=== PATIENT | male | born 1945 | race Hispanic/Latino ===

== ENCOUNTER 2018-08-07 09:31 | Inpatient (IN) | payer MEDICARE ==
--- NOTE | 2018-08-07 10:00 | ED PDOC ---
HPI: Altered Mental Status Time Seen by Provider: 08/07/18 09:42 Chief Complaint (Provider): "AMS" History Per: Patient, EMS Additional Complaint(s): 73 yo male, PMH (based on medications) of DM, HTN and High Cholesterol, presents to ED by EMS for evaluation of AMS. Pt last known to be "well," 3 days ago. According to EMS, Pt lives alone and airborne operations superintendent checked on Pt today and called 911 because Pt appeared to be "not himself." Pt at this time is alert and awake, Pt able to state his name clearly, no facial drooping noted. Pt unsure of day of week or year. Pt moving all extremities well. Pt reports he can not walk due to weakness. pt did mention that Thanksgiving just passed and then states, " don't feel good." Pt has Medications with him: Dr. Martin listed as prescriber. Past Medical History Reviewed: Historical Data, Nursing Documentation, Vital Signs, Unable To Obtain Vital Signs: Last Vital Signs Temp 98.2 F 08/07/18 09:35 Pulse 100 H 08/07/18 09:35 Resp 18 08/07/18 09:35 BP 119/86 08/07/18 09:35 Pulse Ox 90 L 08/07/18 09:35 - Medical History PMH: Diabetes, HTN, Hypercholesterolemia - Family History Family History: States: Unknown Family Hx - Living Arrangements Living Arrangements: Alone - Allergies Allergies/Adverse Reactions: Allergies Allergy/AdvReac Type Severity Reaction Status Date / Time No Known Allergies Allergy Verified 08/07/18 09:44 Review of Systems ROS Statement: Except As Marked, All Systems Reviewed And Found Negative Review Of Systems: ROS cannot be obtained secondary to pt's inabilty to answer questions. Neurological: Positive for: Altered Mental Status Physical Exam - Reviewed Nursing Documentation Reviewed: Yes Vital Signs Reviewed: Yes - Physical Exam Appears: Positive for: Well, Non-toxic, No Acute Distress Head Exam: Positive for: ATRAUMATIC, NORMAL INSPECTION, NORMOCEPHALIC Skin: Positive for: Normal Color, Warm, DRY Eye Exam: Positive for: EOMI, Normal appearance, PERRL ENT: Positive for: Normal ENT Inspection Neck: Positive for: Normal, Painless ROM Cardiovascular/Chest: Positive for: Regular Rate, Rhythm Respiratory: Positive for: Decreased Breath Sounds (b/l). Negative for: Accessory Muscle Use, Crackles, Rales, Rhonchi, Stridor, Wheezing Gastrointestinal/Abdominal: Positive for: Normal Exam, Soft Back: Positive for: Normal Inspection Extremity: Positive for: Normal ROM Neurologic/Psych: Positive for: Alert. Negative for: Gait, Facial Droop - Laboratory Results Result Diagrams: 08/07/18 10:09 08/07/18 10:09 - ECG O2 Sat by Pulse Oximetry: 90 Medical Decision Making Medical Decision Making: IV access established and diagnostics ordered Pt placed on correspondence dictator, POX: 90% on RA. Pt coughing and Lungs sound diminished b.l. Pt adminsitered duo-neb CBC resulted, WBC WNL, BUN COMP with elevated Potassium, glucose, AST/ALT CXR: Poor inspiratory effort, Pt rotated as well, (+) increased hilar markings, Right sided elevated hemidiaphragm, Left costophrenic angle blunted, consistent with possible pneumonia, as aaron erica PA-C Case discussed with ED MD, Dr. Myers, who agreed with treatment at this time of Rocephin and Zithromax. Head CT IMPRESSION: Suspect acute/subacute infarct right posterior parasagittal parietal lobe along the watershed zone of the right RADIO DISPATCHER/posterior MCA territory. Mild chronic periventricular white matter ischemic changes with a few scattered chronic appea ring bilateral basal nuclei lacunar type infarcts.. No acute intracranial hemorrhage. Moderate central volume loss. Case discussed with ED MD, Dr. Myers, who agreed with admission at this time. Call placed and case d/w Hospitalist, Dr. Hedrick, arrangements made for admission to tele. Case d/w david Quigley, as well. Aspirin and Plavix ordered at this time Disposition - Clinical Impression Clinical Impression: Altered mental status, Pneumonia, CVA (cerebral vascular accident) - Patient ED Disposition Is Patient to be Admitted: Yes - Disposition Disposition Time: 13:05 Condition: STABLE Instructions: Pneumonia in Adults, Altered Mental Status, Stroke - Pt Status Changed To: Hospital Disposition Of: Inpatient - Admit Certification Admit to Inpatient:: After my assessment, the patient will require hospitalization for at least two midnights. This is because of the severity of symptoms shown, intensity of services needed, and/or the medical risk in this patient being treated as an outpatient.
[2018-08-07 10:21] LABS: BASO # 0.1 K/uL (0.0-0.2); BASO % 1.5 % (0.0-2.0); HEMOGLOBIN 14.4 g/dL (12.0-18.0); LYMPH # 0.4 K/uL (1.0-4.3); LYMPH % 4.1 % (20.0-40.0); MEAN CELL VOLUME 85.8 fl (80.0-94.0); MEAN CORPUSCULAR HEMOGLOBIN 26.7 pg (27.0-31.0); MEAN CORPUSCULAR HGB CONC 31.1 g/dL (33.0-37.0); MEAN PLATELET VOLUME 10.4 fl (7.2-11.7); MONO # 1.2 K/uL (0.0-0.8); MONO % 12.6 % (0.0-10.0); NEUT # 7.9 K/uL (1.8-7.0); NEUT % 81.8 % (50.0-75.0); NRBC % 0.1 % (0.0-0.0); PLATELET COUNT 284 K/uL (130-400); RED CELL DISTRIBUTION WIDTH 16.6 % (11.5-14.5); WHITE BLOOD COUNT 9.7 K/uL (4.8-10.8)
[2018-08-07 10:29] LABS: ALB/GLOB RATIO 1.1 (1.0-2.1); ALT/SGPT 305 U/L (21-72); AST/SGOT 278 U/L (17-59); BLOOD UREA NITROGEN 44 mg/dl (9-20); CALCIUM 8.2 mg/dL (8.4-10.2); GFR NON-AFRICAN AMERICAN > 60
[2018-08-07 10:40] LABS: INR 1.4; PROTHROMBIN TIME 16.4 Seconds (9.8-13.1)
[2018-08-07 10:43] LABS: PARTIAL THROMBOPLASTIN TIME 32.2 Seconds (25.6-37.1)
[2018-08-07] MEDS ORDERED: Albuterol-Ipratrop 3 mg / 0.5 (3 ml) UD INH STA (10:47)
--- NOTE | 2018-08-07 11:06 | CT ---
Date of service: 08/07/2018 PROCEDURE: CT HEAD WITHOUT CONTRAST. HISTORY: AMS x 3 days COMPARISON: None available. TECHNIQUE: Axial computed tomography images were obtained through the head/brain without intravenous contrast. Radiation dose: Total exam DLP = 2145.3 mGy-cm. This CT exam was performed using one or more of the following dose reduction techniques: Automated exposure control, adjustment of the mA and/or kV according to patient size, and/or use of iterative reconstruction technique. FINDINGS: HEMORRHAGE: No acute parenchymal, subarachnoid or extra-axial hemorrhage. BRAIN: There is a there is an elliptical shaped area of low attenuation in the right parasagittal posterior parietal lobe abutting the border of the interhemispheric fissure in the right VEGETABLE PACKER/posterior MCA watershed zone a most likely representing an acute/subacute infarct. Clinical correlation recommended Moderate central volume loss evidenced by disproportionate enlargement of the ventricles compared sulci. VENTRICLES: No obstructive hydrocephalus. CALVARIUM: There are no acute calvarial fractures PARANASAL SINUSES: Unremarkable as visualized. No significant inflammatory changes. MASTOID AIR CELLS: Unremarkable as visualized. No inflammatory changes. OTHER FINDINGS: None. IMPRESSION: Suspect acute/subacute infarct right posterior parasagittal parietal lobe along the watershed zone of the right VEGETABLE PACKER/posterior MCA territory. Mild chronic periventricular white matter ischemic changes with a few scattered chronic appearing bilateral basal nuclei lacunar type infarcts.. No acute intracranial hemorrhage. Moderate central volume loss.
[2018-08-07] MEDS ORDERED: Azithromycin 500 MG in Sodium Chloride 0.9% 250 ML IVPB STA (12:23)
[2018-08-07 12:52] LABS: BASOPHIL 1 % (0-2); LYMPHOCYTE 4 % (20-50); MONOCYTE 10 % (0-10); NEUTROPHIL 85 % (42-75); TOTAL CELLS COUNTED 100
[2018-08-07 12:53] LABS: ANISOCYTOSIS SLIGHT; LARGE PLATELETS PRESENT; OVALOCYTES SLIGHT; PLATELET ESTIMATE NORMAL (NORMAL)
--- NOTE | 2018-08-07 13:41 | CP.PCM.HP ---
<Sultan Rufino - Last Filed: 08/07/18 15:18> History of Present Illness - History of Present Illness History of Present Illness: Information obtained from patient's medical record and patient. CC: Altered mental status HPI: 73 yo male with pmhx of DMII, HTN, hyperlipidemia and depression brought in by EMS for altered mental status. Patient lives alone and 911 was called by golf course superintendent for his altered mental status. Patient is able to state his name but somewhat drowsy. Patient is not oriented to place or time. Reports feeling weak. Patient denies any cough, fever, chills or abdominal pain. CT of the head shows suspected acute/subacute infarct right posterior parasagittal parietal lobe along the watershed zone of the right RELIGION DEPARTMENT CHAIR/posterior MCA territory. Patient is admitted for altered mental status and suspected CVA. PMD: Dr. Pearson Pmhx: DMII, HTN, Hyperlipidemia, Depression Medications: Levemir 20 Units AM and 30 units PM, Metformin 1000 mg po bid, glimepiride 1 mg po bid, losartan 100 mg daily, simvastatin 40 mg daily, aspirin 81 mg daily, zoloft 25 mg daily. Unable to obtain rest of the medical hx due to patient's mental status. Present on Admission - Present on Admission Any Indicators Present on Admission: No Review of Systems - Review of Systems Review of Systems: Unable to obtain complete ROS due to patient mental status Past Patient History - Infectious Disease Hx of Infectious Diseases: None - Past Social History Smoking Status: Unknown If Ever Smoked - CARDIAC Hx Hypercholesterolemia: Yes Hx Hypertension: Yes - PSYCHIATRIC Hx Substance Use: No Meds Allergies/Adverse Reactions: Allergies Allergy/AdvReac Type Severity Reaction Status Date / Time No Known Allergies Allergy Verified 08/07/18 09:44 Physical Exam - Constitutional Appears: Unkempt Additional comments: Confused and somewhat drowsy - Head Exam Head Exam: ATRAUMATIC - Eye Exam Eye Exam: EOMI, Normal appearance - ENT Exam ENT Exam: Mucous Membranes Moist - Neck Exam Neck exam: Positive for: Full Rom, Normal Inspection. Negative for: Lymphaden opathy - Respiratory Exam Respiratory Exam: absent: Accessory Muscle Use, Wheezes, Respiratory Distress Additional comments: Rales on right lung base. - Cardiovascular Exam Cardiovascular Exam: REGULAR RHYTHM, RRR, +S1, +S2 - GI/Abdominal Exam GI & Abdominal Exam: Normal Bowel Sounds, Soft. absent: Tenderness - Extremities Exam Extremities exam: Positive for: pedal edema, pedal pulses present. Negative for: calf tenderness - Neurological Exam Neurological exam: Alert Additional comments: Oriented to name only. Not oriented to place or time. somewhat drowsy and confused. - Skin Skin Exam: Dry, Warm Additional comments: B/L mild erythema of lower leg down from the knee with scaly skin. 1 cm x 1 cm open sore on right anterior lower leg. NO signs of infection. 1+ pedal edema. Results - Vital Signs Recent Vital Signs: Last Vital Signs Temp 98.2 F 08/07/18 09:35 Pulse 100 H 08/07/18 09:35 Resp 18 08/07/18 09:35 BP 119/86 08/07/18 09:35 Pulse Ox 90 L 08/07/18 13:05 - Labs Result Diagrams: 08/07/18 10:09 08/07/18 10:09 Labs: Laboratory Results - last 24 hr 08/07/18 08/07/18 08/07/18 09:50 10:09 10:09 WBC 9.7 RBC 5.40 Hgb 14.4 Hct 46.3 MCV 85.8 MCH 26.7 L MCHC 31.1 L RDW 16.6 H Plt Count 284 MPV 10.4 Neut % (Auto) 81.8 H Lymph % (Auto) 4.1 L Thurston % (Auto) 12.6 H Eos % (Auto) 0.0 Baso % (Auto) 1.5 Neut # (Auto) 7.9 H Lymph # (Auto) 0.4 L Thurston # (Auto) 1.2 H Eos # (Auto) 0.0 Baso # (Auto) 0.1 Neutrophils % (Manual) 85 H Lymphocytes % (Manual) 4 L Monocytes % (Manual) 10 Basophils % (Manual) 1 Platelet Estimate Normal Large Platelets Present Anisocytosis (manual) Slight Ovalocytes Slight PT INR APTT Sodium 141 Potassium 5.5 H Chloride 99 Carbon Dioxide 31 H Anion Gap 17 BUN 44 H Creatinine 1.0 Est GFR ( Amer) > 60 Est GFR (Non-Af Amer) > 60 POC Glucose (mg/dL) 224 H Random Glucose 247 H Calcium 8.2 L Total Bilirubin 0.8 AST 278 H ALT 305 H Alkaline Phosphatase 124 Troponin I 0.0290 Total Protein 7.7 Albumin 4.0 Globulin 3.7 Albumin/Globulin Ratio 1.1 Blood Type Antibody Screen BBK History Checked 08/07/18 08/07/18 10:09 10:27 WBC RBC Hgb Hct MCV MCH MCHC RDW Plt Count MPV Neut % (Auto) Lymph % (Auto) Thurston % (Auto) Eos % (Auto) Baso % (Auto) Neut # (Auto) Lymph # (Auto) Thurston # (Auto) Eos # (Auto) Baso # (Auto) Neutrophils % (Manual) Lymphocytes % (Manual) Monocytes % (Manual) Basophils % (Manual) Platelet Estimate Large Platelets Anisocytosis (manual) Ovalocytes PT 16.4 H INR 1.4 APTT 32.2 Sodium Potassium Chloride Carbon Dioxide Anion Gap BUN Creatinine Est GFR ( Amer) Est GFR (Non-Af Amer) POC Glucose (mg/dL) Random Glucose Calcium Total Bilirubin AST ALT Alkaline Phosphatase Troponin I Total Protein Albumin Globulin Albumin/Globulin Ratio Blood Type O POSITIVE Antibody Screen Negative BBK History Checked No verified bt Assessment & Plan - Assessment and Plan (Free Text) Assessment: Assessment and Plan: 73 yo male with pmhx of DMII, HTN, hyperlipidemia and depression brought in by EMS for altered mental status. CT of the head shows suspected acute/subacute infarct right posterior parasagittal parietal lobe along the watershed zone of the right RELIGION DEPARTMENT CHAIR/posterior MCA territory. Patient is admitted for altered mental status, suspected CVA and suspected pneumonia. Altered mental status likely secondary to CVA -CT of head: IMPRESSION: Suspect acute/subacute infarct right posterior parasagittal parietal lobe along the watershed zone of the right RELIGION DEPARTMENT CHAIR/posterior MCA territory. Mild chronic periventricular white matter ischemic changes with a few scattered chronic appearing bilateral basal nuclei lacunar type infarcts. No acute intracranial hemorrhage. Moderate central volume loss. -Neuro consult: Dr. Beauchamp -Start aspirin and plavix -f/u carotid US -swallow eval -PT/OT eval Hypoxemia likely secondary to aspiration pneumonia -CXR shows suspected infiltrate on right lung -Start azithromycin and zosyn -f/u on CT chest -Continue with NC oxygen to keep pulse ox above 92% Hyperkalemia: -Potassium 5.5 -EKG: NSR, no T wave changes. -start NS IV fluids @ 100 cc/hr -f/u CMP Transaminitis: -AST 278, ALT 305 -Hold statin -Will avoid hepatoxic drugs. Insulin dependement diabetes mellitus -resume home medications except metformin -Lantus 20 units AM and 30 units PM -Hold metformin 1000 mg po bid -Continue glimepiride 1 mg po bid -sliding scale insulin Hypertension: -stable -continue with home medication -Losartan 100mg po daily Depression: -c/w zoloft 25 mg po daily DVT prophylaxis: -hold lovenox due to CVA -SCD's -GI prophylaxis -Protonix 40 mg IVP <Geovanni Diaz D - Last Filed: 08/07/18 15:33> Results - Vital Signs Recent Vital Signs: Last Vital Signs Temp 98.2 F 08/07/18 09:35 Pulse 100 H 08/07/18 09:35 Resp 18 08/07/18 09:35 BP 119/86 08/07/18 09:35 Pulse Ox 90 L 08/07/18 13:05 - Labs Result Diagrams: 08/07/18 10:09 08/07/18 10:09 Labs: Laboratory Results - last 24 hr 08/07/18 08/07/18 08/07/18 09:50 10:09 10:09 WBC 9.7 RBC 5.40 Hgb 14.4 Hct 46.3 MCV 85.8 MCH 26.7 L MCHC 31.1 L RDW 16.6 H Plt Count 284 MPV 10.4 Neut % (Auto) 81.8 H Lymph % (Auto) 4.1 L Thurston % (Auto) 12.6 H Eos % (Auto) 0.0 Baso % (Auto) 1.5 Neut # (Auto) 7.9 H Lymph # (Auto) 0.4 L Thurston # (Auto) 1.2 H Eos # (Auto) 0.0 Baso # (Auto) 0.1 Neutrophils % (Manual) 85 H Lymphocytes % (Manual) 4 L Monocytes % (Manual) 10 Basophils % (Manual) 1 Platelet Estimate Normal Large Platelets Present Anisocytosis (manual) Slight Ovalocytes Slight PT INR APTT pO2 VBG pH VBG pCO2 VBG HCO3 VBG Total CO2 VBG O2 Sat (Calc) VBG Base Excess VBG Potassium Glucose Lactate FiO2 Blood Gas Comments Crit Value Called To Crit Value Called By Crit Value Read Back Blood Gas Notified Time Sodium 141 Potassium 5.5 H Chloride 99 Carbon Dioxide 31 H Anion Gap 17 BUN 44 H Creatinine 1.0 Est GFR ( Amer) > 60 Est GFR (Non-Af Amer) > 60 POC Glucose (mg/dL) 224 H Random Glucose 247 H Calcium 8.2 L Total Bilirubin 0.8 AST 278 H ALT 305 H Alkaline Phosphatase 124 Total Creatine Kinase Troponin I 0.0290 Total Protein 7.7 Albumin 4.0 Globulin 3.7 Albumin/Globulin Ratio 1.1 Venous Blood Potassium Blood Type Antibody Screen BBK History Checked 08/07/18 08/07/18 08/07/18 10:09 10:27 13:35 WBC RBC Hgb Hct MCV MCH MCHC RDW Plt Count MPV Neut % (Auto) Lymph % (Auto) Thurston % (Auto) Eos % (Auto) Baso % (Auto) Neut # (Auto) Lymph # (Auto) Thurston # (Auto) Eos # (Auto) Baso # (Auto) Neutrophils % (Manual) Lymphocytes % (Manual) Monocytes % (Manual) Basophils % (Manual) Platelet Estimate Large Platelets Anisocytosis (manual) Ovalocytes PT 16.4 H INR 1.4 APTT 32.2 pO2 29 L VBG pH 7.14 L* VBG pCO2 111 H* VBG HCO3 27.0 VBG Total CO2 41.2 H VBG O2 Sat (Calc) 50.4 VBG Base Excess 4.5 H VBG Potassium 5.0 Glucose 241 H Lactate 1.6 FiO2 21.0 Blood Gas Comments Vbg Crit Value Called To Max payne r..n Crit Value Called By Christa Crit Value Read Back Y Blood Gas Notified Time 1423 Sodium 139.0 Potassium Chloride 99.0 Carbon Dioxide Anion Gap BUN Creatinine Est GFR ( Amer) Est GFR (Non-Af Amer) POC Glucose (mg/dL) Random Glucose Calcium Total Bilirubin AST ALT Alkaline Phosphatase Total Creatine Kinase Troponin I Total Protein Albumin Globulin Albumin/Globulin Ratio Venous Blood Potassium 5.0 Blood Type O POSITIVE Antibody Screen Negative BBK History Checked No verified bt 08/07/18 13:52 WBC RBC Hgb Hct MCV MCH MCHC RDW Plt Count MPV Neut % (Auto) Lymph % (Auto) Thurston % (Auto) Eos % (Auto) Baso % (Auto) Neut # (Auto) Lymph # (Auto) Thurston # (Auto) Eos # (Auto) Baso # (Auto) Neutrophils % (Manual) Lymphocytes % (Manual) Monocytes % (Manual) Basophils % (Manual) Platelet Estimate Large Platelets Anisocytosis (manual) Ovalocytes PT INR APTT pO2 VBG pH VBG pCO2 VBG HCO3 VBG Total CO2 VBG O2 Sat (Calc) VBG Base Excess VBG Potassium Glucose Lactate FiO2 Blood Gas Comments Crit Value Called To Crit Value Called By Crit Value Read Back Blood Gas Notified Time Sodium Potassium Chloride Carbon Dioxide Anion Gap BUN Creatinine Est GFR ( Amer) Est GFR (Non-Af Amer) POC Glucose (mg/dL) Random Glucose Calcium Total Bilirubin AST ALT Alkaline Phosphatase Total Creatine Kinase 210 H Troponin I Total Protein Albumin Globulin Albumin/Globulin Ratio Venous Blood Potassium Blood Type Antibody Screen BBK History Checked Attending/Attestation - Attestation I have personally seen and examined this patient.: Yes I have fully participated in the care of the patient.: Yes I have reviewed all pertinent clinical information: Yes Notes (Text): 08/07/18 15:33 Patient seen and examined with resident. Case discussed and agreed with assessment and plan of management.
[2018-08-07] MEDS ORDERED: Sodium Chloride 0.9% 1,000 ML IV SCH (14:00)
[2018-08-07 14:23] LABS: VENOUS BLOOD GAS BASE EXCESS 4.5 mmol/L (0.0-2.0); VENOUS BLOOD GAS PCO2 111 mmHg (40-60); VENOUS BLOOD GAS PO2 29 mm/Hg (30-55); VENOUS BLOOD PH 7.14 (7.32-7.43)
[2018-08-07] MEDS ORDERED: cefTRIAXone (Rocephin) 1 gm Inj ONE (16:22)
[2018-08-07] MEDS ORDERED: Azithromycin 500 MG IV IVPB ONE (16:22)
[2018-08-07] MEDS ORDERED: Sterile Water 10 ML IV ONE (16:22)
--- NOTE | 2018-08-07 16:23 | RAD ---
Date of service: 08/07/2018 HISTORY: Code Stroke COMPARISON: Comparison chest 11/09/2017 FINDINGS: LUNGS: Poor inspiration with low lung volumes, common crowded bronchovascular markings and bibasilar atelectasis right greater than left.. PLEURA: No significant pleural effusion identified, no pneumothorax apparent. CARDIOVASCULAR: Suspect minimal aortic atherosclerotic calcification present. Marked cardiomegaly.. Prominent right suprahilar region of uncertain etiology though this could be due to patient positioning and poor inspiration however the possibility of a aortic aneurysm not excluded. OSSEOUS STRUCTURES: No significant abnormalities. VISUALIZED UPPER ABDOMEN: Normal. OTHER FINDINGS: None. IMPRESSION: Poor inspiration with low lung volumes, common crowded bronchovascular markings and bibasilar atelectasis right greater than left..
[2018-08-07] MEDS: Albuterol-Ipratrop 3 mg / 0.5 (3 ml) UD INH SCH (16:41)
[2018-08-07] MEDS: Insulin Lispro (humaLOG) 100 Units/ml Inj SC SCH ×2 (16:42→23:21)
[2018-08-07] MEDS: Piperacillin/Tazobact 3.375 GM in Sodium Chloride 0.9% 100 ML IVPB SCH ×2 (16:42→23:18)
[2018-08-07] MEDS ORDERED: Piperacillin/Tazobact 3.375 gm Inj IVPB ONE (17:04)
--- NOTE | 2018-08-07 17:28 | CT ---
Date of service: 08/07/2018 PROCEDURE: CT Chest without contrast HISTORY: Right-sided density. COMPARISON: Comparison made with prior chest radiograph obtained earlier same day TECHNIQUE: Contiguous axial images were obtained through the chest without intravenous contrast enhancement. Sagittal and coronal reconstructions were performed. Radiation dose: Total exam DLP = 667.79 mGy-cm. This CT exam was performed using one or more of the following dose reduction techniques: Automated exposure control, adjustment of the mA and/or kV according to patient size, and/or use of iterative reconstruction technique. FINDINGS: LUNGS: Redemonstrated is marked elevation of the right hemidiaphragm likely due to eventration. Mild bibasilar atelectasis right greater than left. There also appears to be minor linear bibasilar scarring changes as well.. Questionable tiny right effusion MEDIASTINUM: The ascending thoracic aorta is mildly dilated measuring 4.2 cm . Descending thoracic aorta measures approximately 3.3 cm. Minimal aortic atherosclerotic calcification. There are a few small nonspecific mediastinal lymph nodes. Evaluation for hilar adenopathy is somewhat limited due to the lack of circulating intravenous contrast material. Central trachea is midline and patent with no large central endoluminal lesions. There is a tiny hiatal hernia. PLEURA: As above. No pneumothorax. BONES: Multilevel degenerative spondylosis of the thoracic spine. There are no acute compression fractures no retropulsed fragments. No suspicious lytic or blastic lesions are identified. UPPER ABDOMEN: The visualized upper abdominal structures grossly unremarkable. OTHER FINDINGS: None. IMPRESSION: Cardiomegaly. Dilatation of the ascending thoracic aorta measuring nearly 4.2 cm.. Marked elevation of the right hemidiaphragm due to eventration. Tiny right-sided effusion. Trace right-sided effusion
--- NOTE | 2018-08-07 17:59 | CARD ---
APPROVED REPORT Date of service: 08/07/2018 EKG Measurement Heart [id number] <Conclusion> Normal sinus rhythm Inferior infarct, age undetermined Cannot rule out Anterior infarct, age undetermined Abnormal ECG
[2018-08-07] MEDS ORDERED: Dextrose 5%/0.45% NS 1,000 ML IV SCH (22:50)
[2018-08-08] MEDS: Piperacillin/Tazobact 3.375 GM in Sodium Chloride 0.9% 100 ML IVPB SCH ×4 (04:06→21:02)
[2018-08-08 06:38] LABS: BASO # 0.1 K/uL (0.0-0.2); BASO % 0.8 % (0.0-2.0); HEMOGLOBIN 14.7 g/dL (12.0-18.0); LYMPH # 0.4 K/uL (1.0-4.3); LYMPH % 3.2 % (20.0-40.0); MEAN CELL VOLUME 88.4 fl (80.0-94.0); MEAN CORPUSCULAR HEMOGLOBIN 26.3 pg (27.0-31.0); MEAN CORPUSCULAR HGB CONC 29.8 g/dL (33.0-37.0); MONO # 0.7 K/uL (0.0-0.8); NRBC % 0.1 % (0.0-0.0); PLATELET COUNT 333 K/uL (130-400); RBC 5.58 Mil/uL (4.40-5.90); WHITE BLOOD COUNT 11.1 K/uL (4.8-10.8)
[2018-08-08 07:22] LABS: LYMPHOCYTE 2 % (20-50); MONOCYTE 5 % (0-10); MYELOCYTE 2 % (0-0); NEUTROPHIL 91 % (42-75); PLATELET ESTIMATE NORMAL (NORMAL); TOTAL CELLS COUNTED 100
[2018-08-08 07:23] LABS: ANISOCYTOSIS SLIGHT; POLYCHROMIC SLIGHT
[2018-08-08] MEDS: Albuterol-Ipratrop 3 mg / 0.5 (3 ml) UD INH SCH ×4 (07:50→20:17)
[2018-08-08 07:52] LABS: BASO # 0.1 K/uL (0.0-0.2); BASO % 0.6 % (0.0-2.0); HEMOGLOBIN 13.8 g/dL (12.0-18.0); LYMPH # 0.6 K/uL (1.0-4.3); LYMPH % 5.4 % (20.0-40.0); MEAN CELL VOLUME 91.7 fl (80.0-94.0); MEAN CORPUSCULAR HEMOGLOBIN 26.5 pg (27.0-31.0); MEAN CORPUSCULAR HGB CONC 28.9 g/dL (33.0-37.0); MEAN PLATELET VOLUME 10.6 fl (7.2-11.7); MONO # 0.7 K/uL (0.0-0.8); MONO % 6.8 % (0.0-10.0); NEUT # 9.3 K/uL (1.8-7.0); NEUT % 87.2 % (50.0-75.0); NRBC % 0.9 % (0.0-0.0); RBC 5.2 Mil/uL (4.40-5.90); RED CELL DISTRIBUTION WIDTH 17.5 % (11.5-14.5); WHITE BLOOD COUNT 10.6 K/uL (4.8-10.8)
[2018-08-08] MEDS ORDERED: Chlorhexidine Gluconate 1 APPL/PKT TP ONE (07:55)
--- NOTE | 2018-08-08 07:56 | CP.CCUPN ---
CCU Subjective - Physician Review Events Since Last Encounter (Free Text): 73 yo male with history of DM, HTN, hyperlipidemia and depression was admitted with altered mental status and CVA, patient s/p cardiac arrest and resuscitations on the floor, patient currently on ventilator, no response to verbal stimuli, events reviewed CCU Objective - Physical Exam Head: Positive for: Atraumatic, Normocephalic Pupils: Positive for: Non-Reactive Conjunctiva: Positive for: Normal Mouth: Positive for: Moist Mucous Membranes Nose (External): Positive for: Atraumatic Neck: Positive for: Normal Range of Motion Respiratory/Chest: Positive for: Rhonchi Cardiovascular: Positive for: Regular Rate and Rhythm Abdomen: Positive for: Normal Bowel Sounds Upper Extremity: Positive for: Normal Inspection Lower Extremity: Positive for: Normal Inspection Neurological: Positive for: Other (on ventilator, no response to verbal stimuli) - Medications Active Medications: Active Medications Generic Name Dose Route Start Last Admin Trade Name Freq PRN Reason Stop Dose Admin Albuterol/Ipratropium 3 ml 08/07/18 16:00 08/07/18 16:41 Duoneb 3 Mg/0.5 Mg (3 Ml) Ud INH 3 ml RQID PEDRO Administration Piperacillin Sod/Tazobactam 100 mls @ 100 mls/hr 08/07/18 16:00 08/08/18 04:06 Sod 3.375 gm/ Sodium Chloride IVPB 100 mls/hr Q6 PEDRO Administration Protocol Azithromycin 500 mg/ Sodium 250 mls @ 250 mls/hr 08/08/18 09:00 Chloride IVPB DAILY PEDRO Protocol Dextrose/Sodium Chloride 1,000 mls @ 100 mls/hr 08/07/18 22:50 08/07/18 23:20 Dextrose 5%/0.45% Ns 1000 Ml IV 08/08/18 22:49 100 mls/hr .Q10H PEDRO Administration Insulin Human Lispro 0 units 08/07/18 16:30 08/07/18 23:21 Humalog SC Not Given ACHS PEDRO Protocol Pantoprazole Sodium 40 mg 08/07/18 14:15 08/07/18 15:41 Protonix Inj IVP 40 mg DAILY PEDRO Administration - Patient Studies Lab Studies: Lab Studies 08/08/18 08/08/18 08/08/18 Range/Units 05:32 05:32 05:18 WBC 11.1 H (4.8-10.8) K/uL RBC 5.58 (4.40-5.90) Mil/uL Hgb 14.7 (12.0-18.0) g/dL Hct 49.4 (35.0-51.0) % MCV 88.4 D (80.0-94.0) fl MCH 26.3 L (27.0-31.0) pg MCHC 29.8 L (33.0-37.0) g/dL RDW 17.0 H (11.5-14.5) % Plt Count 333 (130-400) K/uL MPV 11.0 (7.2-11.7) fl Neut % (Auto) 90.0 H (50.0-75.0) % Lymph % (Auto) 3.2 L (20.0-40.0) % [place] % (Auto) 6.0 (0.0-10.0) % Eos % (Auto) 0.0 (0.0-4.0) % Baso % (Auto) 0.8 (0.0-2.0) % Neut # (Auto) 10.0 H (1.8-7.0) K/uL Lymph # (Auto) 0.4 L (1.0-4.3) K/uL [place] # (Auto) 0.7 (0.0-0.8) K/uL Eos # (Auto) 0.0 (0.0-0.7) K/uL Baso # (Auto) 0.1 (0.0-0.2) K/uL Neutrophils % (Manual) 91 H (42-75) % Lymphocytes % (Manual) 2 L (20-50) % Monocytes % (Manual) 5 (0-10) % Basophils % (Manual) (0-2) % Myelocytes % 2 H (0-0) % Platelet Estimate Normal (NORMAL) Large Platelets Polychromasia Slight Anisocytosis (manual) Slight Ovalocytes PT (9.8-13.1) Seconds INR APTT (25.6-37.1) Seconds pO2 (30-55) mm/Hg VBG pH (7.32-7.43) VBG pCO2 (40-60) mmHg VBG HCO3 mmol/L VBG Total CO2 (22-28) mmol/L VBG O2 Sat (Calc) (40-65) % VBG Base Excess (0.0-2.0) mmol/L VBG Potassium (3.6-5.2) mmol/L Glucose (75-110) mg/dL Lactate (0.7-2.1) mmol/L FiO2 % Blood Gas Comments Crit Value Called To Crit Value Called By Crit Value Read Back Blood Gas Notified Time Sodium (132-148) mmol/l Potassium (3.6-5.0) MMOL/L Chloride (98-107) mmol/L Carbon Dioxide (22-30) mmol/L Anion Gap (10-20) BUN (9-20) mg/dl Creatinine (0.8-1.5) mg/dl Est GFR ( Amer) Est GFR (Non-Af Amer) POC Glucose (mg/dL) 243 H (65-110) mg/dL Random Glucose (75-110) mg/dL Calcium (8.4-10.2) mg/dL Total Bilirubin (0.2-1.3) mg/dl AST (17-59) U/L ALT (21-72) U/L Alkaline Phosphatase (38-126) U/L Total Creatine Kinase (55-170) U/L Troponin I (0.00-0.120) ng/mL Total Protein (6.3-8.2) G/DL Albumin (3.5-5.0) g/dL Globulin (2.2-3.9) gm/dL Albumin/Globulin Ratio (1.0-2.1) Triglycerides 112 (0-149) mg/DL Cholesterol 100 (0-199) mg/dL LDL Cholesterol Direct 65 (0-129) mg/dL HDL Cholesterol 30 (30-70) MG/DL TSH 3rd Generation 1.37 (0.46-4.68) mIU/ML Venous Blood Potassium (3.6-5.2) mmol/L Blood Type Blood Type Confirm Antibody Screen BBK History Checked 08/07/18 08/07/18 08/07/18 Range/Units 22:04 17:46 13:52 WBC (4.8-10.8) K/uL RBC (4.40-5.90) Mil/uL Hgb (12.0-18.0) g/dL Hct (35.0-51.0) % MCV (80.0-94.0) fl MCH (27.0-31.0) pg MCHC (33.0-37.0) g/dL RDW (11.5-14.5) % Plt Count (130-400) K/uL MPV (7.2-11.7) fl Neut % (Auto) (50.0-75.0) % Lymph % (Auto) (20.0-40.0) % [place] % (Auto) (0.0-10.0) % Eos % (Auto) (0.0-4.0) % Baso % (Auto) (0.0-2.0) % Neut # (Auto) (1.8-7.0) K/uL Lymph # (Auto) (1.0-4.3) K/uL [place] # (Auto) (0.0-0.8) K/uL Eos # (Auto) (0.0-0.7) K/uL Baso # (Auto) (0.0-0.2) K/uL Neutrophils % (Manual) (42-75) % Lymphocytes % (Manual) (20-50) % Monocytes % (Manual) (0-10) % Basophils % (Manual) (0-2) % Myelocytes % (0-0) % Platelet Estimate (NORMAL) Large Platelets Polychromasia Anisocytosis (manual) Ovalocytes PT (9.8-13.1) Seconds INR APTT (25.6-37.1) Seconds pO2 (30-55) mm/Hg VBG pH (7.32-7.43) VBG pCO2 (40-60) mmHg VBG HCO3 mmol/L VBG Total CO2 (22-28) mmol/L VBG O2 Sat (Calc) (40-65) % VBG Base Excess (0.0-2.0) mmol/L VBG Potassium (3.6-5.2) mmol/L Glucose (75-110) mg/dL Lactate (0.7-2.1) mmol/L FiO2 % Blood Gas Comments Crit Value Called To Crit Value Called By Crit Value Read Back Blood Gas Notified Time Sodium (132-148) mmol/l Potassium (3.6-5.0) MMOL/L Chloride (98-107) mmol/L Carbon Dioxide (22-30) mmol/L Anion Gap (10-20) BUN (9-20) mg/dl Creatinine (0.8-1.5) mg/dl Est GFR ( Amer) Est GFR (Non-Af Amer) POC Glucose (mg/dL) 168 H 176 H (65-110) mg/dL Random Glucose (75-110) mg/dL Calcium (8.4-10.2) mg/dL Total Bilirubin (0.2-1.3) mg/dl AST (17-59) U/L ALT (21-72) U/L Alkaline Phosphatase (38-126) U/L Total Creatine Kinase 210 H (55-170) U/L Troponin I (0.00-0.120) ng/mL Total Protein (6.3-8.2) G/DL Albumin (3.5-5.0) g/dL Globulin (2.2-3.9) gm/dL Albumin/Globulin Ratio (1.0-2.1) Triglycerides (0-149) mg/DL Cholesterol (0-199) mg/dL LDL Cholesterol Direct (0-129) mg/dL HDL Cholesterol (30-70) MG/DL TSH 3rd Generation (0.46-4.68) mIU/ML Venous Blood Potassium (3.6-5.2) mmol/L Blood Type Blood Type Confirm Antibody Screen BBK History Checked 08/07/18 08/07/18 08/07/18 Range/Units 13:35 10:27 10:09 WBC (4.8-10.8) K/uL RBC (4.40-5.90) Mil/uL Hgb (12.0-18.0) g/dL Hct (35.0-51.0) % MCV (80.0-94.0) fl MCH (27.0-31.0) pg MCHC (33.0-37.0) g/dL RDW (11.5-14.5) % Plt Count (130-400) K/uL MPV (7.2-11.7) fl Neut % (Auto) (50.0-75.0) % Lymph % (Auto) (20.0-40.0) % [place] % (Auto) (0.0-10.0) % Eos % (Auto) (0.0-4.0) % Baso % (Auto) (0.0-2.0) % Neut # (Auto) (1.8-7.0) K/uL Lymph # (Auto) (1.0-4.3) K/uL [place] # (Auto) (0.0-0.8) K/uL Eos # (Auto) (0.0-0.7) K/uL Baso # (Auto) (0.0-0.2) K/uL Neutrophils % (Manual) (42-75) % Lymphocytes % (Manual) (20-50) % Monocytes % (Manual) (0-10) % Basophils % (Manual) (0-2) % Myelocytes % (0-0) % Platelet Estimate (NORMAL) Large Platelets Polychromasia Anisocytosis (manual) Ovalocytes PT 16.4 H (9.8-13.1) Seconds INR 1.4 APTT 32.2 (25.6-37.1) Seconds pO2 29 L (30-55) mm/Hg VBG pH 7.14 L* (7.32-7.43) VBG pCO2 111 H* (40-60) mmHg VBG HCO3 27.0 mmol/L VBG Total CO2 41.2 H (22-28) mmol/L VBG O2 Sat (Calc) 50.4 (40-65) % VBG Base Excess 4.5 H (0.0-2.0) mmol/L VBG Potassium 5.0 (3.6-5.2) mmol/L Glucose 241 H (75-110) mg/dL Lactate 1.6 (0.7-2.1) mmol/L FiO2 21.0 % Blood Gas Comments Vbg Crit Value Called To Max payne r..n Crit Value Called By Christa Crit Value Read Back Y Blood Gas Notified Time 1423 Sodium 139.0 (132-148) mmol/l Potassium (3.6-5.0) MMOL/L Chloride 99.0 (98-107) mmol/L Carbon Dioxide (22-30) mmol/L Anion Gap (10-20) BUN (9-20) mg/dl Creatinine (0.8-1.5) mg/dl Est GFR ( Amer) Est GFR (Non-Af Amer) POC Glucose (mg/dL) (65-110) mg/dL Random Glucose (75-110) mg/dL Calcium (8.4-10.2) mg/dL Total Bilirubin (0.2-1.3) mg/dl AST (17-59) U/L ALT (21-72) U/L Alkaline Phosphatase (38-126) U/L Total Creatine Kinase (55-170) U/L Troponin I (0.00-0.120) ng/mL Total Protein (6.3-8.2) G/DL Albumin (3.5-5.0) g/dL Globulin (2.2-3.9) gm/dL Albumin/Globulin Ratio (1.0-2.1) Triglycerides (0-149) mg/DL Cholesterol (0-199) mg/dL LDL Cholesterol Direct (0-129) mg/dL HDL Cholesterol (30-70) MG/DL TSH 3rd Generation (0.46-4.68) mIU/ML Venous Blood Potassium 5.0 (3.6-5.2) mmol/L Blood Type Blood Type Confirm O POSITIVE Antibody Screen BBK History Checked 08/07/18 08/07/18 08/07/18 Range/Units 10:09 10:09 10:09 WBC 9.7 (4.8-10.8) K/uL RBC 5.40 (4.40-5.90) Mil/uL Hgb 14.4 (12.0-18.0) g/dL Hct 46.3 (35.0-51.0) % MCV 85.8 (80.0-94.0) fl MCH 26.7 L (27.0-31.0) pg MCHC 31.1 L (33.0-37.0) g/dL RDW 16.6 H (11.5-14.5) % Plt Count 284 (130-400) K/uL MPV 10.4 (7.2-11.7) fl Neut % (Auto) 81.8 H (50.0-75.0) % Lymph % (Auto) 4.1 L (20.0-40.0) % [place] % (Auto) 12.6 H (0.0-10.0) % Eos % (Auto) 0.0 (0.0-4.0) % Baso % (Auto) 1.5 (0.0-2.0) % Neut # (Auto) 7.9 H (1.8-7.0) K/uL Lymph # (Auto) 0.4 L (1.0-4.3) K/uL [place] # (Auto) 1.2 H (0.0-0.8) K/uL Eos # (Auto) 0.0 (0.0-0.7) K/uL Baso # (Auto) 0.1 (0.0-0.2) K/uL Neutrophils % (Manual) 85 H (42-75) % Lymphocytes % (Manual) 4 L (20-50) % Monocytes % (Manual) 10 (0-10) % Basophils % (Manual) 1 (0-2) % Myelocytes % (0-0) % Platelet Estimate Normal (NORMAL) Large Platelets Present Polychromasia Anisocytosis (manual) Slight Ovalocytes Slight PT (9.8-13.1) Seconds INR APTT (25.6-37.1) Seconds pO2 (30-55) mm/Hg VBG pH (7.32-7.43) VBG pCO2 (40-60) mmHg VBG HCO3 mmol/L VBG Total CO2 (22-28) mmol/L VBG O2 Sat (Calc) (40-65) % VBG Base Excess (0.0-2.0) mmol/L VBG Potassium (3.6-5.2) mmol/L Glucose (75-110) mg/dL Lactate (0.7-2.1) mmol/L FiO2 % Blood Gas Comments Crit Value Called To Crit Value Called By Crit Value Read Back Blood Gas Notified Time Sodium 141 (132-148) mmol/l Potassium 5.5 H (3.6-5.0) MMOL/L Chloride 99 (98-107) mmol/L Carbon Dioxide 31 H (22-30) mmol/L Anion Gap 17 (10-20) BUN 44 H (9-20) mg/dl Creatinine 1.0 (0.8-1.5) mg/dl Est GFR ( Amer) > 60 Est GFR (Non-Af Amer) > 60 POC Glucose (mg/dL) (65-110) mg/dL Random Glucose 247 H (75-110) mg/dL Calcium 8.2 L (8.4-10.2) mg/dL Total Bilirubin 0.8 (0.2-1.3) mg/dl AST 278 H (17-59) U/L ALT 305 H (21-72) U/L Alkaline Phosphatase 124 (38-126) U/L Total Creatine Kinase (55-170) U/L Troponin I 0.0290 (0.00-0.120) ng/mL Total Protein 7.7 (6.3-8.2) G/DL Albumin 4.0 (3.5-5.0) g/dL Globulin 3.7 (2.2-3.9) gm/dL Albumin/Globulin Ratio 1.1 (1.0-2.1) Triglycerides (0-149) mg/DL Cholesterol (0-199) mg/dL LDL Cholesterol Direct (0-129) mg/dL HDL Cholesterol (30-70) MG/DL TSH 3rd Generation (0.46-4.68) mIU/ML Venous Blood Potassium (3.6-5.2) mmol/L Blood Type O POSITIVE Blood Type Confirm Antibody Screen Negative BBK History Checked No verified bt 08/07/18 Range/Units 09:50 WBC (4.8-10.8) K/uL RBC (4.40-5.90) Mil/uL Hgb (12.0-18.0) g/dL Hct (35.0-51.0) % MCV (80.0-94.0) fl MCH (27.0-31.0) pg MCHC (33.0-37.0) g/dL RDW (11.5-14.5) % Plt Count (130-400) K/uL MPV (7.2-11.7) fl Neut % (Auto) (50.0-75.0) % Lymph % (Auto) (20.0-40.0) % [place] % (Auto) (0.0-10.0) % Eos % (Auto) (0.0-4.0) % Baso % (Auto) (0.0-2.0) % Neut # (Auto) (1.8-7.0) K/uL Lymph # (Auto) (1.0-4.3) K/uL [place] # (Auto) (0.0-0.8) K/uL Eos # (Auto) (0.0-0.7) K/uL Baso # (Auto) (0.0-0.2) K/uL Neutrophils % (Manual) (42-75) % Lymphocytes % (Manual) (20-50) % Monocytes % (Manual) (0-10) % Basophils % (Manual) (0-2) % Myelocytes % (0-0) % Platelet Estimate (NORMAL) Large Platelets Polychromasia Anisocytosis (manual) Ovalocytes PT (9.8-13.1) Seconds INR APTT (25.6-37.1) Seconds pO2 (30-55) mm/Hg VBG pH (7.32-7.43) VBG pCO2 (40-60) mmHg VBG HCO3 mmol/L VBG Total CO2 (22-28) mmol/L VBG O2 Sat (Calc) (40-65) % VBG Base Excess (0.0-2.0) mmol/L VBG Potassium (3.6-5.2) mmol/L Glucose (75-110) mg/dL Lactate (0.7-2.1) mmol/L FiO2 % Blood Gas Comments Crit Value Called To Crit Value Called By Crit Value Read Back Blood Gas Notified Time Sodium (132-148) mmol/l Potassium (3.6-5.0) MMOL/L Chloride (98-107) mmol/L Carbon Dioxide (22-30) mmol/L Anion Gap (10-20) BUN (9-20) mg/dl Creatinine (0.8-1.5) mg/dl Est GFR ( Amer) Est GFR (Non-Af Amer) POC Glucose (mg/dL) 224 H (65-110) mg/dL Random Glucose (75-110) mg/dL Calcium (8.4-10.2) mg/dL Total Bilirubin (0.2-1.3) mg/dl AST (17-59) U/L ALT (21-72) U/L Alkaline Phosphatase (38-126) U/L Total Creatine Kinase (55-170) U/L Troponin I (0.00-0.120) ng/mL Total Protein (6.3-8.2) G/DL Albumin (3.5-5.0) g/dL Globulin (2.2-3.9) gm/dL Albumin/Globulin Ratio (1.0-2.1) Triglycerides (0-149) mg/DL Cholesterol (0-199) mg/dL LDL Cholesterol Direct (0-129) mg/dL HDL Cholesterol (30-70) MG/DL TSH 3rd Generation (0.46-4.68) mIU/ML Venous Blood Potassium (3.6-5.2) mmol/L Blood Type Blood Type Confirm Antibody Screen BBK History Checked Laboratory Results - last 24 hr 08/07/18 08/07/18 08/07/18 09:50 10:09 10:09 WBC 9.7 RBC 5.40 Hgb 14.4 Hct 46.3 MCV 85.8 MCH 26.7 L MCHC 31.1 L RDW 16.6 H Plt Count 284 MPV 10.4 Neut % (Auto) 81.8 H Lymph % (Auto) 4.1 L [place] % (Auto) 12.6 H Eos % (Auto) 0.0 Baso % (Auto) 1.5 Neut # (Auto) 7.9 H Lymph # (Auto) 0.4 L [place] # (Auto) 1.2 H Eos # (Auto) 0.0 Baso # (Auto) 0.1 Neutrophils % (Manual) 85 H Lymphocytes % (Manual) 4 L Monocytes % (Manual) 10 Basophils % (Manual) 1 Myelocytes % Platelet Estimate Normal Large Platelets Present Polychromasia Anisocytosis (manual) Slight Ovalocytes Slight PT INR APTT pO2 VBG pH VBG pCO2 VBG HCO3 VBG Total CO2 VBG O2 Sat (Calc) VBG Base Excess VBG Potassium Glucose Lactate FiO2 Blood Gas Comments Crit Value Called To Crit Value Called By Crit Value Read Back Blood Gas Notified Time Sodium 141 Potassium 5.5 H Chloride 99 Carbon Dioxide 31 H Anion Gap 17 BUN 44 H Creatinine 1.0 Est GFR ( Amer) > 60 Est GFR (Non-Af Amer) > 60 POC Glucose (mg/dL) 224 H Random Glucose 247 H Calcium 8.2 L Total Bilirubin 0.8 AST 278 H ALT 305 H Alkaline Phosphatase 124 Total Creatine Kinase Troponin I 0.0290 Total Protein 7.7 Albumin 4.0 Globulin 3.7 Albumin/Globulin Ratio 1.1 Triglycerides Cholesterol LDL Cholesterol Direct HDL Cholesterol TSH 3rd Generation Venous Blood Potassium Blood Type Blood Type Confirm Antibody Screen BBK History Checked 08/07/18 08/07/18 08/07/18 10:09 10:09 10:27 WBC RBC Hgb Hct MCV MCH MCHC RDW Plt Count MPV Neut % (Auto) Lymph % (Auto) [place] % (Auto) Eos % (Auto) Baso % (Auto) Neut # (Auto) Lymph # (Auto) [place] # (Auto) Eos # (Auto) Baso # (Auto) Neutrophils % (Manual) Lymphocytes % (Manual) Monocytes % (Manual) Basophils % (Manual) Myelocytes % Platelet Estimate Large Platelets Polychromasia Anisocytosis (manual) Ovalocytes PT 16.4 H INR 1.4 APTT 32.2 pO2 VBG pH VBG pCO2 VBG HCO3 VBG Total CO2 VBG O2 Sat (Calc) VBG Base Excess VBG Potassium Glucose Lactate FiO2 Blood Gas Comments Crit Value Called To Crit Value Called By Crit Value Read Back Blood Gas Notified Time Sodium Potassium Chloride Carbon Dioxide Anion Gap BUN Creatinine Est GFR ( Amer) Est GFR (Non-Af Amer) POC Glucose (mg/dL) Random Glucose Calcium Total Bilirubin AST ALT Alkaline Phosphatase Total Creatine Kinase Troponin I Total Protein Albumin Globulin Albumin/Globulin Ratio Triglycerides Cholesterol LDL Cholesterol Direct HDL Cholesterol TSH 3rd Generation Venous Blood Potassium Blood Type O POSITIVE Blood Type Confirm O POSITIVE Antibody Screen Negative BBK History Checked No verified bt 08/07/18 08/07/18 08/07/18 13:35 13:52 17:46 WBC RBC Hgb Hct MCV MCH MCHC RDW Plt Count MPV Neut % (Auto) Lymph % (Auto) [place] % (Auto) Eos % (Auto) Baso % (Auto) Neut # (Auto) Lymph # (Auto) [place] # (Auto) Eos # (Auto) Baso # (Auto) Neutrophils % (Manual) Lymphocytes % (Manual) Monocytes % (Manual) Basophils % (Manual) Myelocytes % Platelet Estimate Large Platelets Polychromasia Anisocytosis (manual) Ovalocytes PT INR APTT pO2 29 L VBG pH 7.14 L* VBG pCO2 111 H* VBG HCO3 27.0 VBG Total CO2 41.2 H VBG O2 Sat (Calc) 50.4 VBG Base Excess 4.5 H VBG Potassium 5.0 Glucose 241 H Lactate 1.6 FiO2 21.0 Blood Gas Comments Vbg Crit Value Called To Max payne r..n Crit Value Called By Christa Crit Value Read Back Y Blood Gas Notified Time 1423 Sodium 139.0 Potassium Chloride 99.0 Carbon Dioxide Anion Gap BUN Creatinine Est GFR ( Amer) Est GFR (Non-Af Amer) POC Glucose (mg/dL) 176 H Random Glucose Calcium Total Bilirubin AST ALT Alkaline Phosphatase Total Creatine Kinase 210 H Troponin I Total Protein Albumin Globulin Albumin/Globulin Ratio Triglycerides Cholesterol LDL Cholesterol Direct HDL Cholesterol TSH 3rd Generation Venous Blood Potassium 5.0 Blood Type Blood Type Confirm Antibody Screen BBK History Checked 08/07/18 08/08/18 08/08/18 22:04 05:18 05:32 WBC 11.1 H RBC 5.58 Hgb 14.7 Hct 49.4 MCV 88.4 D MCH 26.3 L MCHC 29.8 L RDW 17.0 H Plt Count 333 MPV 11.0 Neut % (Auto) 90.0 H Lymph % (Auto) 3.2 L [place] % (Auto) 6.0 Eos % (Auto) 0.0 Baso % (Auto) 0.8 Neut # (Auto) 10.0 H Lymph # (Auto) 0.4 L [place] # (Auto) 0.7 Eos # (Auto) 0.0 Baso # (Auto) 0.1 Neutrophils % (Manual) 91 H Lymphocytes % (Manual) 2 L Monocytes % (Manual) 5 Basophils % (Manual) Myelocytes % 2 H Platelet Estimate Normal Large Platelets Polychromasia Slight Anisocytosis (manual) Slight Ovalocytes PT INR APTT pO2 VBG pH VBG pCO2 VBG HCO3 VBG Total CO2 VBG O2 Sat (Calc) VBG Base Excess VBG Potassium Glucose Lactate FiO2 Blood Gas Comments Crit Value Called To Crit Value Called By Crit Value Read Back Blood Gas Notified Time Sodium Potassium Chloride Carbon Dioxide Anion Gap BUN Creatinine Est GFR ( Amer) Est GFR (Non-Af Amer) POC Glucose (mg/dL) 168 H 243 H Random Glucose Calcium Total Bilirubin AST ALT Alkaline Phosphatase Total Creatine Kinase Troponin I Total Protein Albumin Globulin Albumin/Globulin Ratio Triglycerides Cholesterol LDL Cholesterol Direct HDL Cholesterol TSH 3rd Generation Venous Blood Potassium Blood Type Blood Type Confirm Antibody Screen BBK History Checked 08/08/18 05:32 WBC RBC Hgb Hct MCV MCH MCHC RDW Plt Count MPV Neut % (Auto) Lymph % (Auto) [place] % (Auto) Eos % (Auto) Baso % (Auto) Neut # (Auto) Lymph # (Auto) [place] # (Auto) Eos # (Auto) Baso # (Auto) Neutrophils % (Manual) Lymphocytes % (Manual) Monocytes % (Manual) Basophils % (Manual) Myelocytes % Platelet Estimate Large Platelets Polychromasia Anisocytosis (manual) Ovalocytes PT INR APTT pO2 VBG pH VBG pCO2 VBG HCO3 VBG Total CO2 VBG O2 Sat (Calc) VBG Base Excess VBG Potassium Glucose Lactate FiO2 Blood Gas Comments Crit Value Called To Crit Value Called By Crit Value Read Back Blood Gas Notified Time Sodium Potassium Chloride Carbon Dioxide Anion Gap BUN Creatinine Est GFR ( Amer) Est GFR (Non-Af Amer) POC Glucose (mg/dL) Random Glucose Calcium Total Bilirubin AST ALT Alkaline Phosphatase Total Creatine Kinase Troponin I Total Protein Albumin Globulin Albumin/Globulin Ratio Triglycerides 112 Cholesterol 100 LDL Cholesterol Direct 65 HDL Cholesterol 30 TSH 3rd Generation 1.37 Venous Blood Potassium Blood Type Blood Type Confirm Antibody Screen BBK History Checked EKG/Cardiology Studies: Cardiology / EKG Studies 08/07/18 09:50 ELECTROCARDIOGRAM Stat Comment: Mode Of Transportation: Reason For Exam: ams 08/08/18 EKG [ELECTROCARDIOGRAM] Stat Comment: 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
[2018-08-08 08:04] LABS: ALB/GLOB RATIO 1.2 (1.0-2.1); ALBUMIN 3.8 g/dL (3.5-5.0); BLOOD UREA NITROGEN 39 mg/dl (9-20); CALCIUM 9.9 mg/dL (8.4-10.2); GFR NON-AFRICAN AMERICAN 50
[2018-08-08 08:11] LABS: ALT/SGPT 1559 U/L (21-72)
[2018-08-08] MEDS ORDERED: Lactulose 10 gm/15 ml (Rectal Use) PR ONE (08:17)
[2018-08-08 08:26] LABS: AST/SGOT 1721 U/L (17-59)
[2018-08-08 08:33] LABS: ABG ALLEN TEST YES; ARTERIAL BLOOD GAS HEMOGLOBIN 14.1 g/dL (11.7-17.4); ARTERIAL BLOOD GAS O2 CAPACITY 19.5 mL/dL (16-24); ARTERIAL BLOOD GAS O2 CONTENT 19.4 ML/dL (15-23); ARTERIAL BLOOD GAS O2 SAT 99.7 % (95-98); ARTERIAL BLOOD GAS PCO2 73 mm/Hg (35-45); ARTERIAL BLOOD GAS PH 7.03 (7.35-7.45); ARTERIAL BLOOD GAS PO2 153 mm/Hg (80-100); ARTERIAL BLOOD GAS TCO2 21.5 mmol/L (22-28)
[2018-08-08 08:34] LABS: INR 1.5
[2018-08-08 08:37] LABS: PARTIAL THROMBOPLASTIN TIME 31.7 Seconds (25.6-37.1)
--- NOTE | 2018-08-08 09:45 | CP.PCM.PN ---
<Kris Rojas - Last Filed: 08/08/18 15:26> Subjective - Date & Time of Evaluation Date of Evaluation: 08/08/18 Time of Evaluation: 09:00 - Subjective Subjective: Pt seen and examined today. 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 In ICU Central line was placed, and he is closely monitored for exacerbation. Objective - Vital Signs/Intake and Output Vital Signs (last 24 hours): Temp Pulse Resp BP Pulse Ox 98.2 F 102 H 20 129/76 94 L 08/08/18 05:00 08/08/18 07:50 08/08/18 05:00 08/08/18 05:00 08/08/18 05:00 - Medications Medications: Current Medications Albuterol/Ipratropium (Duoneb 3 Mg/0.5 Mg (3 Ml) Ud) 3 ml INH RQID PEDRO Last Admin: 08/07/18 16:41 Dose: 3 ml Piperacillin Sod/Tazobactam (Sod 3.375 gm/ Sodium Chloride) 100 mls @ 100 mls/hr IVPB Q6 [facility]; Protocol Last Admin: 08/08/18 04:06 Dose: 100 mls/hr Azithromycin 500 mg/ Sodium (Chloride) 250 mls @ 250 mls/hr IVPB DAILY [facility]; Protocol Dextrose/Sodium Chloride (Dextrose 5%/0.45% Ns 1000 Ml) 1,000 mls @ 100 mls/hr IV .Q10H [facility] Stop: 08/08/18 22:49 Last Admin: 08/07/18 23:20 Dose: 100 mls/hr Insulin Human Lispro (Humalog) 0 units SC ACHS [facility]; Protocol Last Admin: 08/07/18 23:21 Dose: Not Given Lactulose (Enulose) 20 gm NG Q6 [facility] Pantoprazole Sodium (Protonix Inj) 40 mg IVP DAILY [facility] Last Admin: 08/07/18 15:41 Dose: 40 mg - Labs Labs: 08/08/18 07:45 08/08/18 07:34 PT 17.0 Seconds (9.8-13.1) H 08/08/18 07:50 INR 1.5 08/08/18 07:50 APTT 31.7 Seconds (25.6-37.1) 08/08/18 07:50 - Head Exam Head Exam: ATRAUMATIC, NORMAL INSPECTION, NORMOCEPHALIC - Eye Exam Eye Exam: Normal appearance Pupil Exam: Fixed Additional comments: Able to open Eyes when name mentioned, Pupil dilated to light but fixed - ENT Exam ENT Exam: Normal Exam Additional comments: Intubated, with OG tube attached - Respiratory Exam Respiratory Exam: Rhonchi Additional comments: On ventilator 12 rate, 450 TV, PEEP 5, sat 100% - Cardiovascular Exam Cardiovascular Exam: REGULAR RHYTHM, +S1, +S2 - GI/Abdominal Exam GI & Abdominal Exam: Soft, Normal Bowel Sounds - Neurological Exam Additional comments: Lathargic - Skin Skin Exam: Dry, Intact, Normal Color, Warm Assessment and Plan - Assessment and Plan (Free Text) Assessment: 73 yo male with PMH of DM2, HTN, Hyperlipidemia and depression brought in by EMS for altered mental status. CT possible Subacute infarct right posterior parasagittal parietal lobe along the watershed zone of the right GIS SOFTWARE ENGINEER/Posterior MCA territory. Patient is admitted for altered mental status, suspected CVA and suspected pneumonia. *Pt had code blue today, was successfully resuscitated, and sent to ICU for further management, Pt currently intubated and non-verbal. -CT of head: IMPRESSION: Suspect acute/subacute infarct right posterior parasagittal parietal lobe along the watershed zone of the right GIS SOFTWARE ENGINEER/posterior MCA territory. Mild chronic periventricular white matter ischemic changes with a few scattered chronic appearing bilateral basal nuclei lacunar type infarcts. No acute intracranial hemorrhage. Moderate central volume loss. CXR suspected infiltrate on right lung CT Chest: Dilated Ascending thoracic aorta, marked elevated R hemidiaphragm likely due to eventration with small RIGHt effusion. Altered mental status likely secondary to CVA Continue aspirin and plavix f/u carotid US No gag reflex noted Eyes are fixed, but react to light Possible Anoxic Encephalopathy F/u Neurology Dr. Beauchamp Hepatic Encephalopathy AST/ALT 1721/1559 Ammonia 360 Recieved lactulose 200 once Will start on lactulose 20 NG tube Q6 F/U GI consult Hypoxemia possible due to aspiration pneumonia Continue azithromycin and zosyn Day 1 On ventilator 12 rate, 450 TV, PEEP 5, sat 100% with Duoneb Elevated Troponin Troponin of [id number] EKG unchange Possibly due to Chest compression Consult Cardio, f/u recommendation Hyperkalemia: Potassium 5.5-> 5.9 EKG: NSR, no T wave changes. Continue half saline and d5 100ml f/u CMP Insulin dependement diabetes mellitus Hold all Home medication as Pt is intubated sliding scale insulin Hypoglycemic protocol Hypertension: Hold home medication monitor BP Depression: MEdication hold DVT prophylaxis: -hold lovenox due to CVA -SCD's -GI prophylaxis -Protonix 40 mg IVP Full Code <Geovanni Diaz D - Last Filed: 08/08/18 18:36> Objective - Vital Signs/Intake and Output Vital Signs (last 24 hours): Temp Pulse Resp BP Pulse Ox 98.7 F 107 H 20 132/66 93 L 08/08/18 16:00 08/08/18 18:00 08/08/18 18:00 08/08/18 18:00 08/08/18 18:00 Intake and Output: 08/08/18 08/08/18 06:59 18:59 Intake Total 4400 Output Total 500 Balance 3900 - Medications Medications: Current Medications Albuterol/Ipratropium (Duoneb 3 Mg/0.5 Mg (3 Ml) Ud) 3 ml INH RQID PEDRO Last Admin: 08/08/18 15:01 Dose: 3 ml Piperacillin Sod/Tazobactam (Sod 3.375 gm/ Sodium Chloride) 100 mls @ 100 mls/hr IVPB Q6 [facility]; Protocol Last Admin: 08/08/18 16:45 Dose: 100 mls/hr Azithromycin 500 mg/ Sodium (Chloride) 250 mls @ 250 mls/hr IVPB DAILY P[facility]RO; Pr otocol Last Admin: 08/08/18 10:36 Dose: 250 mls/hr Norepinephrine Bitartrate 4 mg (/ Dextrose) 254 mls @ 9.53 mls/hr IV .Q24H [facility]; Protocol Last Titration: 08/08/18 18:22 Dose: 0 mcg/min, 0 mls/hr Sodium Chloride (Sodium Chloride 0.9%) 1,000 mls @ 150 mls/hr IV .Q6H40M [facility]RO Stop: 08/09/18 15:54 Last Admin: 08/08/18 16:45 Dose: 150 mls/hr Insulin Human Lispro (Humalog) 0 units SC ACHS [facility]; Protocol Last Admin: 08/08/18 16:43 Dose: 3 units Lactulose (Enulose) 20 gm NG Q6 [facility] Last Admin: 08/08/18 16:44 Dose: Not Given Pantoprazole Sodium (Protonix Inj) 40 mg IVP DAILY [facility] Last Admin: 08/08/18 10:29 Dose: 40 mg - Labs Labs: 08/08/18 07:45 08/08/18 17:00 PT 17.0 Seconds (9.8-13.1) H 08/08/18 07:50 INR 1.5 08/08/18 07:50 APTT 31.7 Seconds (25.6-37.1) 08/08/18 07:50 Attending/Attestation - Attestation I have personally seen and examined this patient.: Yes I have fully participated in the care of the patient.: Yes I have reviewed all pertinent clinical information, including history, physical exam and plan: Yes Notes (Text): 08/08/18 18:35 Patient seen and examined with resident. Case discussed and agreed with assessment. Spoke with son and daughter in law who both wanted to do everything for patient.
--- NOTE | 2018-08-08 10:13 | RAD ---
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 NGT is present, the tip of which appears to lie over the mid abdomen well below EG junction. LUNGS: Bibasilar atelectasis and/or infiltrates with persistent right hemidiaphragm likely due to eventration. PLEURA: No significant pleural effusion identified, no pneumothorax apparent. CARDIOVASCULAR: Minimal aortic atherosclerotic calcification present.. Dilatation ascending thoracic aorta again noted. Cardiomegaly.. No pulmonary vascular congestion. OSSEOUS STRUCTURES: No significant abnormalities. VISUALIZED UPPER ABDOMEN: Normal. OTHER FINDINGS: None. IMPRESSION: Support lines and tubes as above. Bibasilar atelectasis and/or infiltrates with persistent right hemidiaphragm likely due to eventration. Cardiomegaly.
[2018-08-08 10:23] VITALS: BMI 29.4
[2018-08-08] MEDS ORDERED: Insulin Regular 100 units/ml IV STA (10:27)
[2018-08-08] MEDS ORDERED: Dextrose 50% SYRINGE Inj (50 ml) IVP ONE (10:30)
[2018-08-08] MEDS: Azithromycin 500 MG in Sodium Chloride 0.9% 250 ML IVPB SCH (10:36)
[2018-08-08] MEDS: Insulin Lispro (humaLOG) 100 Units/ml Inj SC SCH ×3 (11:00→22:46)
[2018-08-08 11:14] LABS: ABG ALLEN TEST YES; ARTERIAL BLOOD GAS HCO3 18.2 mmol/L (21-28); ARTERIAL BLOOD GAS HEMOGLOBIN 11.9 g/dL (11.7-17.4); ARTERIAL BLOOD GAS O2 CAPACITY 16.2 mL/dL (16-24); ARTERIAL BLOOD GAS O2 SAT 92.4 % (95-98); ARTERIAL BLOOD GAS PCO2 42 mm/Hg (35-45); ARTERIAL BLOOD GAS PH 7.25 (7.35-7.45); ARTERIAL BLOOD GAS PO2 57 mm/Hg (80-100); ARTERIAL BLOOD GAS TCO2 19.7 mmol/L (22-28)
--- NOTE | 2018-08-08 13:33 | PCM.PROC ---
Procedures Attestation:: I certify that I have explained the specified Operation(s) or Procedure(s), risks, benefits and reasonable alternatives to the Patient and/or other person responsible. The opportunity was given to ask questions and all questions answered - Central Line Placement Right Femoral Triple Lumen Catheter Aseptic technique was employed throughout the procedure: Hand Hygiene done prior to procedure, Full sterile barriers (mask, hair cover, sterile gown, sterile gloves), Full body sterile drape, Chloraprep Antiseptic: 30 second prep for IJ or SC sites, Chloraprep Antiseptic: 2 minute prep for Femoral CVP Time Out Performed: Yes Pt. Placed on Pulse Ox Monitor: Yes Central Line Prep: Chlorhexidine-Alcohol Combination Local Anesthesia Used: Lidocaine 1% Amount of Anesthesia Used (mls): 5 Ultrasound Used for Placement: Yes Central Line Lumen Inserted: triple Central Line Length: 20 cm Post Procedure: Sutured in Place, Good Blood Return, All Ports Aspirated, Flushed, Capped, Sterile Dressing Applied Secured by: Suture Post procedure dressing: Chlorhexidine disc (Biopatch) Post Procedure X-Ray: No Patient Tolerated Procedure: Well, No Complications Immediate Complications: None
[2018-08-08] MEDS ORDERED: Sodium Chloride 3% for Inhalation 4 ML VIAL.NEB IH PRN (13:42)
--- NOTE | 2018-08-08 15:27 | CP.PCM.CON ---
History of Present Illness - History of Present Illness History of Present Illness: Neurology Consultation Note: Mr. Giang is 73-year-old man, referred to me by Dr. 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 He was brought in to the ED and n on-contrast CT scan of the head showed a subacute ischemic stroke involving the right MCA/PROJECTION TECHNICIAN watershed zone. This morning, he was found to be pulseless and had cardiac arrest. He was coded on the floor and after 4 rounds of epi, ROSC was established and he was transferred to the ICU. His ammonia level was elevated initially, but is down now after lactulose. He opens eyes to painful stimulus, has some withdrawal to pain on the right and decerebrate posturing on the left. Review of Systems - Review of Systems Systems not reviewed;Unavailable: Intubated Past Patient History - Infectious Disease Hx of Infectious Diseases: None - Past Medical History & Family History Past Medical History?: Yes - Past Social History Smoking Status: Unknown If Ever Smoked - CARDIAC Hx Cardiac Disorders: Yes - ENDOCRINE/METABOLIC Hx Endocrine Disorders: Yes - PSYCHIATRIC Hx Substance Use: No - ANESTHESIA Hx Anesthesia: Yes Hx Anesthesia Reactions: No Hx Malignant Hyperthermia: No Has any member of the family had a problem w/ anesthesia?: No Meds Allergies/Adverse Reactions: Allergies Allergy/AdvReac Type Severity Reaction Status Date / Time No Known Allergies Allergy Verified 08/07/18 09:44 - Medications Medications: Current Medications Albuterol/Ipratropium (Duoneb 3 Mg/0.5 Mg (3 Ml) Ud) 3 ml INH RQID [facility]EDRO Last Admin: 08/08/18 15:01 Dose: 3 ml Piperacillin Sod/Tazobactam (Sod 3.375 gm/ Sodium Chloride) 100 mls @ 100 mls/hr IVPB Q6 [facility]; Protocol Last Admin: 08/08/18 10:37 Dose: 100 mls/hr Azithromycin 500 mg/ Sodium (Chloride) 250 mls @ 250 mls/hr IVPB DAILY [facility]; Protocol Last Admin: 08/08/18 10:36 Dose: 250 mls/hr Dextrose/Sodium Chloride (Dextrose 5%/0.45% Ns 1000 Ml) 1,000 mls @ 100 mls/hr IV .Q10H [facility] Stop: 08/08/18 22:49 Last Admin: 08/07/18 23:20 Dose: 100 mls/hr Norepinephrine Bitartrate 4 mg (/ Dextrose) 254 mls @ 9.53 mls/hr IV .Q24H [facility]; Protocol Last Titration: 08/08/18 14:42 Dose: 5 mcg/min, 19.05 mls/hr Insulin Human Lispro (Humalog) 0 units SC ACHS [facility]; Protocol Last Admin: 08/08/18 11:00 Dose: 10 units Lactulose (Enulose) 20 gm NG Q6 [facility] Last Admin: 08/08/18 10:24 Dose: 20 gm Pantoprazole Sodium (Protonix Inj) 40 mg IVP DAILY [facility] Last Admin: 08/08/18 10:29 Dose: 40 mg Physical Exam - Constitutional Appears: Chronically Ill - Head Exam Head Exam: ATRAUMATIC, NORMAL INSPECTION, NORMOCEPHALIC - Eye Exam Eye Exam: Normal appearance, PERRL, Scleral icterus - ENT Exam ENT Exam: Mucous Membranes Moist, Normal Exam - Neck Exam Neck exam: Positive for: Normal Inspection - Respiratory Exam Respiratory Exam: Respiratory Distress - Cardiovascular Exam Cardiovascular Exam: REGULAR RHYTHM, +S1, +S2 - GI/Abdominal Exam GI & Abdominal Exam: Normal Bowel Sounds, Soft. absent: Tenderness - Rectal Exam Rectal Exam: Deferred - Neurological Exam Additional comments: Off sedation, responds to painful stimulus with eye opening and decerebrate and triple flexion on the left with slight withdrawal on the right. Pupils are reactive, breathing over the ventilator, corneals are present. GCS= 5T Results - Vital Signs Recent Vital Signs: Last Vital Signs Temp 97.2 F L 08/08/18 08:00 Pulse 92 H 08/08/18 13:00 Resp 20 08/08/18 13:00 BP 77/49 L 08/08/18 13:00 Pulse Ox 94 L 08/08/18 13:00 - Labs Result Diagrams: 08/08/18 07:45 08/08/18 07:34 Labs: Laboratory Results - last 24 hr 08/07/18 08/07/18 08/07/18 10:09 17:46 22:04 WBC RBC Hgb Hct MCV MCH MCHC RDW Plt Count MPV Neut % (Auto) Lymph % (Auto) Bea[place]gard % (Auto) Eos % (Auto) Baso % (Auto) Neut # (Auto) Lymph # (Auto) [place] # (Auto) Eos # (Auto) Baso # (Auto) Neutrophils % (Manual) Lymphocytes % (Manual) Monocytes % (Manual) Myelocytes % Platelet Estimate Polychromasia Anisocytosis (manual) PT INR APTT pCO2 pO2 HCO3 ABG pH ABG Total CO2 ABG O2 Saturation ABG O2 Content ABG Base Excess ABG Hemoglobin ABG Carboxyhemoglobin POC ABG HHb (Measured) ABG Methemoglobin ABG O2 Capacity Jose Test A-a O2 Difference Hgb O2 Saturation Vent Mode Mechanical Rate FiO2 Tidal Volume PEEP Blood Gas Comments Crit Value Called To Crit Value Called By Crit Value Read Back Blood Gas Notified Time Sodium Potassium Chloride Carbon Dioxide Anion Gap BUN Creatinine Est GFR ( Amer) Est GFR (Non-Af Amer) POC Glucose (mg/dL) 176 H 168 H Random Glucose Lactic Acid Calcium Phosphorus Magnesium Total Bilirubin AST ALT Alkaline Phosphatase Ammonia Troponin I Total Protein Albumin Globulin Albumin/Globulin Ratio Triglycerides Cholesterol LDL Cholesterol Direct HDL Cholesterol TSH 3rd Generation Blood Type Confirm O POSITIVE 08/08/18 08/08/18 08/08/18 05:18 05:32 05:32 WBC 11.1 H RBC 5.58 Hgb 14.7 Hct 49.4 MCV 88.4 D MCH 26.3 L MCHC 29.8 L RDW 17.0 H Plt Count 333 MPV 11.0 Neut % (Auto) 90.0 H Lymph % (Auto) 3.2 L Bea[place]gard % (Auto) 6.0 Eos % (Auto) 0.0 Baso % (Auto) 0.8 Neut # (Auto) 10.0 H Lymph # (Auto) 0.4 L [place]gard # (Auto) 0.7 Eos # (Auto) 0.0 Baso # (Auto) 0.1 Neutrophils % (Manual) 91 H Lymphocytes % (Manual) 2 L Monocytes % (Manual) 5 Myelocytes % 2 H Platelet Estimate Normal Polychromasia Slight Anisocytosis (manual) Slight PT INR APTT pCO2 pO2 HCO3 ABG pH ABG Total CO2 ABG O2 Saturation ABG O2 Content ABG Base Excess ABG Hemoglobin ABG Carboxyhemoglobin POC ABG HHb (Measured) ABG Methemoglobin ABG O2 Capacity Jose Test A-a O2 Difference Hgb O2 Saturation Vent Mode Mechanical Rate FiO2 Tidal Volume PEEP Blood Gas Comments Crit Value Called To Crit Value Called By Crit Value Read Back Blood Gas Notified Time Sodium Potassium Chloride Carbon Dioxide Anion Gap BUN Creatinine Est GFR ( Amer) Est GFR (Non-Af Amer) POC Glucose (mg/dL) 243 H Random Glucose Lactic Acid Calcium Phosphorus Magnesium Total Bilirubin AST ALT Alkaline Phosphatase Ammonia Troponin I Total Protein Albumin Globulin Albumin/Globulin Ratio Triglycerides 112 Cholesterol 100 LDL Cholesterol Direct 65 HDL Cholesterol 30 TSH 3rd Generation 1.37 Blood Type Confirm 08/08/18 08/08/18 08/08/18 07:34 07:34 07:45 WBC 10.6 RBC 5.20 Hgb 13.8 Hct 47.7 MCV 91.7 D MCH 26.5 L MCHC 28.9 L RDW 17.5 H Plt Count 310 MPV 10.6 Neut % (Auto) 87.2 H Lymph % (Auto) 5.4 L Bea[place]gard % (Auto) 6.8 Eos % (Auto) 0.0 Baso % (Auto) 0.6 Neut # (Auto) 9.3 H Lymph # (Auto) 0.6 L Bea[place]gard # (Auto) 0.7 Eos # (Auto) 0.0 Baso # (Auto) 0.1 Neutrophils % (Manual) Lymphocytes % (Manual) Monocytes % (Manual) Myelocytes % Platelet Estimate Polychromasia Anisocytosis (manual) PT INR APTT pCO2 73 H* pO2 153 H HCO3 15.0 L ABG pH 7.03 L* ABG Total CO2 21.5 L ABG O2 Saturation 99.7 H ABG O2 Content 19.4 ABG Base Excess -12.7 L ABG Hemoglobin 14.1 ABG Carboxyhemoglobin 2.0 H POC ABG HHb (Measured) 0.3 ABG Methemoglobin 1.4 ABG O2 Capacity 19.5 Jose Test Yes A-a O2 Difference 469.0 Hgb O2 Saturation 96.3 Vent Mode Prvc/ac Mechanical Rate 12 FiO2 100.0 Tidal Volume 450 PEEP 5 Blood Gas Comments Prvc/ac12/vt450/100%/+5peep Crit Value Called To Dr jose eduardo scanlon m.d. Crit Value Called By Christa Crit Value Read Back Y Blood Gas Notified Time 833 Sodium 146 Potassium 5.9 H Chloride 100 Carbon Dioxide 25 Anion Gap 27 H BUN 39 H Creatinine 1.4 Est GFR ( Amer) > 60 Est GFR (Non-Af Amer) 50 POC Glucose (mg/dL) Random Glucose 195 H Lactic Acid Calcium 9.9 Phosphorus 11.3 H Magnesium 2.7 H Total Bilirubin 1.5 H AST 1721 H ALT 1559 H Alkaline Phosphatase 115 Ammonia Troponin I 0.0430 Total Protein 7.0 Albumin 3.8 Globulin 3.2 Albumin/Globulin Ratio 1.2 Triglycerides Cholesterol LDL Cholesterol Direct HDL Cholesterol TSH 3rd Generation Blood Type Confirm 08/08/18 08/08/18 08/08/18 07:45 07:50 08:06 WBC RBC Hgb Hct MCV MCH MCHC RDW Plt Count MPV Neut % (Auto) Lymph % (Auto) Bea[place]gard % (Auto) Eos % (Auto) Baso % (Auto) Neut # (Auto) Lymph # (Auto) [place] # (Auto) Eos # (Auto) Baso # (Auto) Neutrophils % (Manual) Lymphocytes % (Manual) Monocytes % (Manual) Myelocytes % Platelet Estimate Polychromasia Anisocytosis (manual) PT 17.0 H INR 1.5 APTT 31.7 pCO2 pO2 HCO3 ABG pH ABG Total CO2 ABG O2 Saturation ABG O2 Content ABG Base Excess ABG Hemoglobin ABG Carboxyhemoglobin POC ABG HHb (Measured) ABG Methemoglobin ABG O2 Capacity Jose Test A-a O2 Difference Hgb O2 Saturation Vent Mode Mechanical Rate FiO2 Tidal Volume PEEP Blood Gas Comments Crit Value Called To Crit Value Called By Crit Value Read Back Blood Gas Notified Time Sodium Potassium Chloride Carbon Dioxide Anion Gap BUN Creatinine Est GFR ( Amer) Est GFR (Non-Af Amer) POC Glucose (mg/dL) Random Glucose Lactic Acid 12.5 H* Calcium Phosphorus Magnesium Total Bilirubin AST ALT Alkaline Phosphatase Ammonia 360 H* Troponin I Total Protein Albumin Globulin Albumin/Globulin Ratio Triglycerides Cholesterol LDL Cholesterol Direct HDL Cholesterol TSH 3rd Generation Blood Type Confirm 08/08/18 08/08/18 08/08/18 10:56 13:12 13:12 WBC RBC Hgb Hct MCV MCH MCHC RDW Plt Count MPV Neut % (Auto) Lymph % (Auto) Bea[place]gard % (Auto) Eos % (Auto) Baso % (Auto) Neut # (Auto) Lymph # (Auto) [place] # (Auto) Eos # (Auto) Baso # (Auto) Neutrophils % (Manual) Lymphocytes % (Manual) Monocytes % (Manual) Myelocytes % Platelet Estimate Polychromasia Anisocytosis (manual) PT INR APTT pCO2 42 pO2 57 L HCO3 18.2 L ABG pH 7.25 L ABG Total CO2 19.7 L ABG O2 Saturation 92.4 L ABG O2 Content 15.0 ABG Base Excess -8.4 L ABG Hemoglobin 11.9 ABG Carboxyhemoglobin 1.8 H POC ABG HHb (Measured) 7.4 H ABG Methemoglobin 1.4 ABG O2 Capacity 16.2 Jose Test Yes A-a O2 Difference 604.0 Hgb O2 Saturation 89.4 L Vent Mode Prvc/ac Mechanical Rate 20 FiO2 100.0 Tidal Volume 450 PEEP 5 Blood Gas Comments Prvc/ac20/vt450/100%/+5peep Crit Value Called To Dr. jose eduardo scanlon m.d. Crit Value Called By Christa Hodge Value Read Back Y Blood Gas Notified Time 1114 Sodium Potassium Chloride Carbon Dioxide Anion Gap BUN Creatinine Est GFR ( Amer) Est GFR (Non-Af Amer) POC Glucose (mg/dL) Random Glucose Lactic Acid Calcium Phosphorus Magnesium Total Bilirubin AST ALT Alkaline Phosphatase Ammonia 23 D Troponin I 0.3760 H* Total Protein Albumin Globulin Albumin/Globulin Ratio Triglycerides Cholesterol LDL Cholesterol Direct HDL Cholesterol TSH 3rd Generation Blood Type Confirm Assessment & Plan (1) Anoxic brain injury Assessment and Plan: Will obtain a repeat non-contrast CT scan of the head when he is hemodynamically stable and consider obtaining EEG as well. For now, continue conservative management per primary team. Status: Acute (2) CVA (cerebral vascular accident) Assessment and Plan: Start aspirin 300 mg NM daily and maintain BP in normal range to avoid further watershed infarcts. When stable, the patient can have MRI of the brain for further evaluation as well as an echocardiogram. Thank you for this consultation. Status: Acute
--- NOTE | 2018-08-08 16:00 | CP.PCM.CON ---
History of Present Illness - History of Present Illness History of Present Illness: This 73-year-old man was brought to the emergency room in altered mental status and was found to have a subacute infarct in the right middle cerebral/posterior cerebral artery watershed area. The patient arrived in the emergency room yesterday and was hospitalized. He lives alone and his history was obtained by reviewing the chart. No family member was available for providing history. Review of his chart reveals that he was a hypertensive and diabetic. There is no history of prior cardiac illness. This morning the patient had a cardiac arrest and was revived after a prolonged resuscitative effort. On physical examination this was a middle aged man who was intubated on ventilatory support. His FiO2 was 100% and his pulse oximetry was 98%. laboratory monitor reveals sinus rhythm at 104 bpm. His blood pressure was 110/70 mmHg while on intravenous pressure support with norepinephrine at 5 mcg/m. The patient responds to painful stimuli with opening eyes but has no response to loud calling. His extremities were warm and his nailbeds were pink. There was no central or peripheral cyanosis. The patient has made approximately 300 mL of urine over last 8 hours. There was no pedal or sacral edema. Pedal pulses were feeble but distinctly present. There were no carotid bruits. The apex was not palpable. There was an apical systolic murmur suggestive of mitral regurgitation. The first and second heart sounds were distant but present. There were no rales. Abdomen was soft liver and spleen are not palpable. His electrocardiogram at admission shows Q waves in inferior leads suggestive of an old inferior wall myocardial infarction. R-wave progression in chest leads was poor suggestive off an old anterior wall infarction. His lab data showed hyperkalemia. The patient has received intravenous dextrose and insulin and a follow-up metabolic profile is awaited. Following cardiac arrest he has markedly elevated lactic acid as well as elevated troponin levels. He was also hyperkalemic and intravenous insulin and dextrose have been administered. Liver enzymes show a markedly elevated levels post cardiac resusci tation. 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 History of hypertension and diabetes. The patient appears hemodynamically stable at this juncture with minimal pressure support. 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 An echocardiogram is awaited for tomorrow. Past Patient History - Infectious Disease Hx of Infectious Diseases: None - Past Medical History & Family History Past Medical History?: Yes - Past Social History Smoking Status: Unknown If Ever Smoked - CARDIAC Hx Cardiac Disorders: Yes - ENDOCRINE/METABOLIC Hx Endocrine Disorders: Yes - PSYCHIATRIC Hx Substance Use: No - ANESTHESIA Hx Anesthesia: Yes Hx Anesthesia Reactions: No Hx Malignant Hyperthermia: No Has any member of the family had a problem w/ anesthesia?: No Meds Allergies/Adverse Reactions: Allergies Allergy/AdvReac Type Severity Reaction Status Date / Time No Known Allergies Allergy Verified 08/07/18 09:44 - Medications Medications: Current Medications Albuterol/Ipratropium (Duoneb 3 Mg/0.5 Mg (3 Ml) Ud) 3 ml INH RQID [facility] Last Admin: 08/08/18 15:01 Dose: 3 ml Piperacillin Sod/Tazobactam (Sod 3.375 gm/ Sodium Chloride) 100 mls @ 100 mls/hr IVPB Q6 [facility]; Protocol Last Admin: 08/08/18 10:37 Dose: 100 mls/hr Azithromycin 500 mg/ Sodium (Chloride) 250 mls @ 250 mls/hr IVPB DAILY [facility]; Protocol Last Admin: 08/08/18 10:36 Dose: 250 mls/hr Norepinephrine Bitartrate 4 mg (/ Dextrose) 254 mls @ 9.53 mls/hr IV .Q24H [facility]; Protocol Last Titration: 08/08/18 14:42 Dose: 5 mcg/min, 19.05 mls/hr Sodium Chloride (Sodium Chloride 0.9%) 1,000 mls @ 150 mls/hr IV .Q6H40M [facility] Stop: 08/09/18 15:54 Insulin Human Lispro (Humalog) 0 units SC ACHS [facility]; Protocol Last Admin: 08/08/18 11:00 Dose: 10 units Lactulose (Enulose) 20 gm NG Q6 [facility] Last Admin: 08/08/18 10:24 Dose: 20 gm Pantoprazole Sodium (Protonix Inj) 40 mg IVP DAILY [facility] Last Admin: 08/08/18 10:29 Dose: 40 mg Results - Vital Signs Recent Vital Signs: Last Vital Signs Temp 97.2 F L 08/08/18 08:00 Pulse 94 H 08/08/18 15:00 Resp 20 08/08/18 15:00 BP 107/68 08/08/18 15:00 Pulse Ox 90 L 08/08/18 15:00 - Labs Result Diagrams: 08/08/18 07:45 08/08/18 07:34 Labs: Laboratory Results - last 24 hr 08/07/18 08/07/18 08/07/18 10:09 17:46 22:04 WBC RBC Hgb Hct MCV MCH MCHC RDW Plt Count MPV Neut % (Auto) Lymph % (Auto) [place] % (Auto) Eos % (Auto) Baso % (Auto) Neut # (Auto) Lymph # (Auto) [place] # (Auto) Eos # (Auto) Baso # (Auto) Neutrophils % (Manual) Lymphocytes % (Manual) Monocytes % (Manual) Myelocytes % Platelet Estimate Polychromasia Anisocytosis (manual) PT INR APTT pCO2 pO2 HCO3 ABG pH ABG Total CO2 ABG O2 Saturation ABG O2 Content ABG Base Excess ABG Hemoglobin ABG Carboxyhemoglobin POC ABG HHb (Measured) ABG Methemoglobin ABG O2 Capacity Jose Test A-a O2 Difference Hgb O2 Saturation Vent Mode Mechanical Rate FiO2 Tidal Volume PEEP Blood Gas Comments Crit Value Called To Crit Value Called By Crit Value Read Back Blood Gas Notified Time Sodium Potassium Chloride Carbon Dioxide Anion Gap BUN Creatinine Est GFR ( Amer) Est GFR (Non-Af Amer) POC Glucose (mg/dL) 176 H 168 H Random Glucose Lactic Acid Calcium Phosphorus Magnesium Total Bilirubin AST ALT Alkaline Phosphatase Ammonia Troponin I Total Protein Albumin Globulin Albumin/Globulin Ratio Triglycerides Cholesterol LDL Cholesterol Direct HDL Cholesterol TSH 3rd Generation Blood Type Confirm O POSITIVE 08/08/18 08/08/18 08/08/18 05:18 05:32 05:32 WBC 11.1 H RBC 5.58 Hgb 14.7 Hct 49.4 MCV 88.4 D MCH 26.3 L MCHC 29.8 L RDW 17.0 H Plt Count 333 MPV 11.0 Neut % (Auto) 90.0 H Lymph % (Auto) 3.2 L [place] % (Auto) 6.0 Eos % (Auto) 0.0 Baso % (Auto) 0.8 Neut # (Auto) 10.0 H Lymph # (Auto) 0.4 L [place] # (Auto) 0.7 Eos # (Auto) 0.0 Baso # (Auto) 0.1 Neutrophils % (Manual) 91 H Lymphocytes % (Manual) 2 L Monocytes % (Manual) 5 Myelocytes % 2 H Platelet Estimate Normal Polychromasia Slight Anisocytosis (manual) Slight PT INR APTT pCO2 pO2 HCO3 ABG pH ABG Total CO2 ABG O2 Saturation ABG O2 Content ABG Base Excess ABG Hemoglobin ABG Carboxyhemoglobin POC ABG HHb (Measured) ABG Methemoglobin ABG O2 Capacity Jose Test A-a O2 Difference Hgb O2 Saturation Vent Mode Mechanical Rate FiO2 Tidal Volume PEEP Blood Gas Comments Crit Value Called To Crit Value Called By Crit Value Read Back Blood Gas Notified Time Sodium Potassium Chloride Carbon Dioxide Anion Gap BUN Creatinine Est GFR ( Amer) Est GFR (Non-Af Amer) POC Glucose (mg/dL) 243 H Random Glucose Lactic Acid Calcium Phosphorus Magnesium Total Bilirubin AST ALT Alkaline Phosphatase Ammonia Troponin I Total Protein Albumin Globulin Albumin/Globulin Ratio Triglycerides 112 Cholesterol 100 LDL Cholesterol Direct 65 HDL Cholesterol 30 TSH 3rd Generation 1.37 Blood Type Confirm 08/08/18 08/08/18 08/08/18 07:34 07:34 07:45 WBC 10.6 RBC 5.20 Hgb 13.8 Hct 47.7 MCV 91.7 D MCH 26.5 L MCHC 28.9 L RDW 17.5 H Plt Count 310 MPV 10.6 Neut % (Auto) 87.2 H Lymph % (Auto) 5.4 L [place] % (Auto) 6.8 Eos % (Auto) 0.0 Baso % (Auto) 0.6 Neut # (Auto) 9.3 H Lymph # (Auto) 0.6 L [place] # (Auto) 0.7 Eos # (Auto) 0.0 Baso # (Auto) 0.1 Neutrophils % (Manual) Lymphocytes % (Manual) Monocytes % (Manual) Myelocytes % Platelet Estimate Polychromasia Anisocytosis (manual) PT INR APTT pCO2 73 H* pO2 153 H HCO3 15.0 L ABG pH 7.03 L* ABG Total CO2 21.5 L ABG O2 Saturation 99.7 H ABG O2 Content 19.4 ABG Base Excess -12.7 L ABG Hemoglobin 14.1 ABG Carboxyhemoglobin 2.0 H POC ABG HHb (Measured) 0.3 ABG Methemoglobin 1.4 ABG O2 Capacity 19.5 Jose Test Yes A-a O2 Difference 469.0 Hgb O2 Saturation 96.3 Vent Mode Prvc/ac Mechanical Rate 12 FiO2 100.0 Tidal Volume 450 PEEP 5 Blood Gas Comments Prvc/ac12/vt450/100%/+5peep Crit Value Called To Dr jose eduardo scanlon m.d. Crit Value Called By Christa Crit Value Read Back Y Blood Gas Notified Time 833 Sodium 146 Potassium 5.9 H Chloride 100 Carbon Dioxide 25 Anion Gap 27 H BUN 39 H Creatinine 1.4 Est GFR ( Amer) > 60 Est GFR (Non-Af Amer) 50 POC Glucose (mg/dL) Random Glucose 195 H Lactic Acid Calcium 9.9 Phosphorus 11.3 H Magnesium 2.7 H Total Bilirubin 1.5 H AST 1721 H ALT 1559 H Alkaline Phosphatase 115 Ammonia Troponin I 0.0430 Total Protein 7.0 Albumin 3.8 Globulin 3.2 Albumin/Globulin Ratio 1.2 Triglycerides Cholesterol LDL Cholesterol Direct HDL Cholesterol TSH 3rd Generation Blood Type Confirm 08/08/18 08/08/18 08/08/18 07:45 07:50 08:06 WBC RBC Hgb Hct MCV MCH MCHC RDW Plt Count MPV Neut % (Auto) Lymph % (Auto) [place] % (Auto) Eos % (Auto) Baso % (Auto) Neut # (Auto) Lymph # (Auto) [place] # (Auto) Eos # (Auto) Baso # (Auto) Neutrophils % (Manual) Lymphocytes % (Manual) Monocytes % (Manual) Myelocytes % Platelet Estimate Polychromasia Anisocytosis (manual) PT 17.0 H INR 1.5 APTT 31.7 pCO2 pO2 HCO3 ABG pH ABG Total CO2 ABG O2 Saturation ABG O2 Content ABG Base Excess ABG Hemoglobin ABG Carboxyhemoglobin POC ABG HHb (Measured) ABG Methemoglobin ABG O2 Capacity Jose Test A-a O2 Difference Hgb O2 Saturation Vent Mode Mechanical Rate FiO2 Tidal Volume PEEP Blood Gas Comments Crit Value Called To Crit Value Called By Crit Value Read Back Blood Gas Notified Time Sodium Potassium Chloride Carbon Dioxide Anion Gap BUN Creatinine Est GFR ( Amer) Est GFR (Non-Af Amer) POC Glucose (mg/dL) Random Glucose Lactic Acid 12.5 H* Calcium Phosphorus Magnesium Total Bilirubin AST ALT Alkaline Phosphatase Ammonia 360 H* Troponin I Total Protein Albumin Globulin Albumin/Globulin Ratio Triglycerides Cholesterol LDL Cholesterol Direct HDL Cholesterol TSH 3rd Generation Blood Type Confirm 08/08/18 08/08/18 08/08/18 10:56 13:12 13:12 WBC RBC Hgb Hct MCV MCH MCHC RDW Plt Count MPV Neut % (Auto) Lymph % (Auto) [place] % (Auto) Eos % (Auto) Baso % (Auto) Neut # (Auto) Lymph # (Auto) [place] # (Auto) Eos # (Auto) Baso # (Auto) Neutrophils % (Manual) Lymphocytes % (Manual) Monocytes % (Manual) Myelocytes % Platelet Estimate Polychromasia Anisocytosis (manual) PT INR APTT pCO2 42 pO2 57 L HCO3 18.2 L ABG pH 7.25 L ABG Total CO2 19.7 L ABG O2 Saturation 92.4 L ABG O2 Content 15.0 ABG Base Excess -8.4 L ABG Hemoglobin 11.9 ABG Carboxyhemoglobin 1.8 H POC ABG HHb (Measured) 7.4 H ABG Methemoglobin 1.4 ABG O2 Capacity 16.2 Jose Test Yes A-a O2 Difference 604.0 Hgb O2 Saturation 89.4 L Vent Mode Prvc/ac Mechanical Rate 20 FiO2 100.0 Tidal Volume 450 PEEP 5 Blood Gas Comments Prvc/ac20/vt450/100%/+5peep Crit Value Called To Dr. jose eduardo scanlon m.d. Crit Value Called By Christa Hodge Value Read Back Y Blood Gas Notified Time 1114 Sodium Potassium Chloride Carbon Dioxide Anion Gap BUN Creatinine Est GFR ( Amer) Est GFR (Non-Af Amer) POC Glucose (mg/dL) Random Glucose Lactic Acid Calcium Phosphorus Magnesium Total Bilirubin AST ALT Alkaline Phosphatase Ammonia 23 D Troponin I 0.3760 H* Total Protein Albumin Globulin Albumin/Globulin Ratio Triglycerides Cholesterol LDL Cholesterol Direct HDL Cholesterol TSH 3rd Generation Blood Type Confirm
[2018-08-08] MEDS: Sodium Chloride 0.9% 1,000 ML IV SCH ×3 (16:45→22:46)
[2018-08-08 17:33] LABS: CALCIUM 7.8 mg/dL (8.4-10.2)
--- NOTE | 2018-08-08 23:48 | CP.PCM.CON ---
History of Present Illness - History of Present Illness History of Present Illness: 73 yo male admitted with altered mental status and found to hasve a CVA. He then had to be resuscitated while in telemetry and found to have an FL. His past medical issues include DM and hypertension. GI service was called due to jorge mar LFTs. Review of Systems - Review of Systems Systems not reviewed;Unavailable: Altered Mental Status Past Patient History - Infectious Disease Hx of Infectious Diseases: None - Past Medical History & Family History Past Medical History?: Yes - Past Social History Smoking Status: Unknown If Ever Smoked - CARDIAC Hx Cardiac Disorders: Yes - ENDOCRINE/METABOLIC Hx Endocrine Disorders: Yes - PSYCHIATRIC Hx Substance Use: No - ANESTHESIA Hx Anesthesia: Yes Hx Anesthesia Reactions: No Hx Malignant Hyperthermia: No Has any member of the family had a problem w/ anesthesia?: No Meds Allergies/Adverse Reactions: Allergies Allergy/AdvReac Type Severity Reaction Status Date / Time No Known Allergies Allergy Verified 08/07/18 09:44 - Medications Medications: Current Medications Acetaminophen (Tylenol 650mg/20.3ml Solution Ud) 650 mg PO Q4 PRN PRN Reason: Temperature Albuterol/Ipratropium (Duoneb 3 Mg/0.5 Mg (3 Ml) Ud) 3 ml INH RQID [facility]RO Last Admin: 08/08/18 20:17 Dose: 3 ml Piperacillin Sod/Tazobactam (Sod 3.375 gm/ Sodium Chloride) 100 mls @ 100 mls/hr IVPB Q6 [facility]; Protocol Last Admin: 08/08/18 21:02 Dose: 100 mls/hr Azithromycin 500 mg/ Sodium (Chloride) 250 mls @ 250 mls/hr IVPB DAILY [facility]; Protocol Last Admin: 08/08/18 10:36 Dose: 250 mls/hr Norepinephrine Bitartrate 4 mg (/ Dextrose) 254 mls @ 9.53 mls/hr IV .Q24H [facility]; Protocol Last Titration: 08/08/18 18:22 Dose: 0 mcg/min, 0 mls/hr Sodium Chloride (Sodium Chloride 0.9%) 1,000 mls @ 150 mls/hr IV .Q6H40M [facility] Stop: 08/09/18 15:54 Last Admin: 08/08/18 22:46 Dose: Not Given Insulin Human Lispro (Humalog) 0 units SC ACHS [facility]; Protocol Last Admin: 08/08/18 22:46 Dose: Not Given Lactulose (Enulose) 20 gm NG Q6 [facility] Last Admin: 08/08/18 21:05 Dose: Not Given Pantoprazole Sodium (Protonix Inj) 40 mg IVP DAILY [facility] Last Admin: 08/08/18 10:29 Dose: 40 mg Physical Exam - Constitutional Appears: No Acute Distress - Head Exam Head Exam: NORMAL INSPECTION - Eye Exam Eye Exam: Normal appearance - ENT Exam ENT Exam: Mucous Membranes Moist - Neck Exam Neck exam: Positive for: Normal Inspection - Respiratory Exam Respiratory Exam: Clear to Auscultation Bilateral - Cardiovascular Exam Cardiovascular Exam: REGULAR RHYTHM, +S1, +S2 - GI/Abdominal Exam GI & Abdominal Exam: Normal Bowel Sounds, Soft. absent: Tenderness - Extremities Exam Extremities exam: Positive for: normal inspection Results - Vital Signs Recent Vital Signs: Last Vital Signs Temp 98.7 F 08/08/18 16:00 Pulse 107 H 08/08/18 18:00 Resp 20 08/08/18 18:00 BP 132/66 08/08/18 18:00 Pulse Ox 93 L 08/08/18 18:00 - Labs Result Diagrams: 08/08/18 07:45 08/08/18 17:00 Labs: Laboratory Results - last 24 hr 08/07/18 08/08/18 08/08/18 10:09 05:18 05:32 WBC 11.1 H RBC 5.58 Hgb 14.7 Hct 49.4 MCV 88.4 D MCH 26.3 L MCHC 29.8 L RDW 17.0 H Plt Count 333 MPV 11.0 Neut % (Auto) 90.0 H Lymph % (Auto) 3.2 L [place] % (Auto) 6.0 Eos % (Auto) 0.0 Baso % (Auto) 0.8 Neut # (Auto) 10.0 H Lymph # (Auto) 0.4 L [place] # (Auto) 0.7 Eos # (Auto) 0.0 Baso # (Auto) 0.1 Neutrophils % (Manual) 91 H Lymphocytes % (Manual) 2 L Monocytes % (Manual) 5 Myelocytes % 2 H Platelet Estimate Normal Polychromasia Slight Anisocytosis (manual) Slight PT INR APTT pCO2 pO2 HCO3 ABG pH ABG Total CO2 ABG O2 Saturation ABG O2 Content ABG Base Excess ABG Hemoglobin ABG Carboxyhemoglobin POC ABG HHb (Measured) ABG Methemoglobin ABG O2 Capacity Jose Test A-a O2 Difference Hgb O2 Saturation Vent Mode Mechanical Rate FiO2 Tidal Volume PEEP Blood Gas Comments Crit Value Called To Crit Value Called By Crit Value Read Back Blood Gas Notified Time Sodium Potassium Chloride Carbon Dioxide Anion Gap BUN Creatinine Est GFR ( Amer) Est GFR (Non-Af Amer) POC Glucose (mg/dL) 243 H Random Glucose Lactic Acid Calcium Phosphorus Magnesium Total Bilirubin AST ALT Alkaline Phosphatase Ammonia Troponin I Total Protein Albumin Globulin Albumin/Globulin Ratio Triglycerides Cholesterol LDL Cholesterol Direct HDL Cholesterol Procalcitonin TSH 3rd Generation Blood Type Confirm O POSITIVE 08/08/18 08/08/18 08/08/18 05:32 07:34 07:34 WBC RBC Hgb Hct MCV MCH MCHC RDW Plt Count MPV Neut % (Auto) Lymph % (Auto) [place] % (Auto) Eos % (Auto) Baso % (Auto) Neut # (Auto) Lymph # (Auto) [place] # (Auto) Eos # (Auto) Baso # (Auto) Neutrophils % (Manual) Lymphocytes % (Manual) Monocytes % (Manual) Myelocytes % Platelet Estimate Polychromasia Anisocytosis (manual) PT INR APTT pCO2 73 H* pO2 153 H HCO3 15.0 L ABG pH 7.03 L* ABG Total CO2 21.5 L ABG O2 Saturation 99.7 H ABG O2 Content 19.4 ABG Base Excess -12.7 L ABG Hemoglobin 14.1 ABG Carboxyhemoglobin 2.0 H POC ABG HHb (Measured) 0.3 ABG Methemoglobin 1.4 ABG O2 Capacity 19.5 Jose Test Yes A-a O2 Difference 469.0 Hgb O2 Saturation 96.3 Vent Mode Prvc/ac Mechanical Rate 12 FiO2 100.0 Tidal Volume 450 PEEP 5 Blood Gas Comments Prvc/ac12/vt450/100%/+5peep Crit Value Called To Dr jose eduardo scanlon m.d. Crit Value Called By Christa Crit Value Read Back Y Blood Gas Notified Time 833 Sodium 146 Potassium 5.9 H Chloride 100 Carbon Dioxide 25 Anion Gap 27 H BUN 39 H Creatinine 1.4 Est GFR ( Amer) > 60 Est GFR (Non-Af Amer) 50 POC Glucose (mg/dL) Random Glucose 195 H Lactic Acid Calcium 9.9 Phosphorus 11.3 H Magnesium 2.7 H Total Bilirubin 1.5 H AST 1721 H ALT 1559 H Alkaline Phosphatase 115 Ammonia Troponin I 0.0430 Total Protein 7.0 Albumin 3.8 Globulin 3.2 Albumin/Globulin Ratio 1.2 Triglycerides 112 Cholesterol 100 LDL Cholesterol Direct 65 HDL Cholesterol 30 Procalcitonin TSH 3rd Generation 1.37 Blood Type Confirm 08/08/18 08/08/18 08/08/18 07:45 07:45 07:48 WBC 10.6 RBC 5.20 Hgb 13.8 Hct 47.7 MCV 91.7 D MCH 26.5 L MCHC 28.9 L RDW 17.5 H Plt Count 310 MPV 10.6 Neut % (Auto) 87.2 H Lymph % (Auto) 5.4 L [place] % (Auto) 6.8 Eos % (Auto) 0.0 Baso % (Auto) 0.6 Neut # (Auto) 9.3 H Lymph # (Auto) 0.6 L [place] # (Auto) 0.7 Eos # (Auto) 0.0 Baso # (Auto) 0.1 Neutrophils % (Manual) Lymphocytes % (Manual) Monocytes % (Manual) Myelocytes % Platelet Estimate Polychromasia Anisocytosis (manual) PT INR APTT pCO2 pO2 HCO3 ABG pH ABG Total CO2 ABG O2 Saturation ABG O2 Content ABG Base Excess ABG Hemoglobin ABG Carboxyhemoglobin POC ABG HHb (Measured) ABG Methemoglobin ABG O2 Capacity Jose Test A-a O2 Difference Hgb O2 Saturation Vent Mode Mechanical Rate FiO2 Tidal Volume PEEP Blood Gas Comments Crit Value Called To Crit Value Called By Crit Value Read Back Blood Gas Notified Time Sodium Potassium Chloride Carbon Dioxide Anion Gap BUN Creatinine Est GFR ( Amer) Est GFR (Non-Af Amer) POC Glucose (mg/dL) Random Glucose Lactic Acid Calcium Phosphorus Magnesium Total Bilirubin AST ALT Alkaline Phosphatase Ammonia 360 H* Troponin I Total Protein Albumin Globulin Albumin/Globulin Ratio Triglycerides Cholesterol LDL Cholesterol Direct HDL Cholesterol Procalcitonin 0.12 L TSH 3rd Generation Blood Type Confirm 08/08/18 08/08/18 08/08/18 07:50 08:06 10:56 WBC RBC Hgb Hct MCV MCH MCHC RDW Plt Count MPV Neut % (Auto) Lymph % (Auto) [place] % (Auto) Eos % (Auto) Baso % (Auto) Neut # (Auto) Lymph # (Auto) [place] # (Auto) Eos # (Auto) Baso # (Auto) Neutrophils % (Manual) Lymphocytes % (Manual) Monocytes % (Manual) Myelocytes % Platelet Estimate Polychromasia Anisocytosis (manual) PT 17.0 H INR 1.5 APTT 31.7 pCO2 42 pO2 57 L HCO3 18.2 L ABG pH 7.25 L ABG Total CO2 19.7 L ABG O2 Saturation 92.4 L ABG O2 Content 15.0 ABG Base Excess -8.4 L ABG Hemoglobin 11.9 ABG Carboxyhemoglobin 1.8 H POC ABG HHb (Measured) 7.4 H ABG Methemoglobin 1.4 ABG O2 Capacity 16.2 Jose Test Yes A-a O2 Difference 604.0 Hgb O2 Saturation 89.4 L Vent Mode Prvc/ac Mechanical Rate 20 FiO2 100.0 Tidal Volume 450 PEEP 5 Blood Gas Comments Prvc/ac20/vt450/100%/+5peep Crit Value Called To Dr. jose eduardo scanlon m.d. Crit Value Called By Christa Cridenny Value Read Back Y Blood Gas Notified Time 1114 Sodium Potassium Chloride Carbon Dioxide Anion Gap BUN Creatinine Est GFR ( Amer) Est GFR (Non-Af Amer) POC Glucose (mg/dL) Random Glucose Lactic Acid 12.5 H* Calcium Phosphorus Magnesium Total Bilirubin AST ALT Alkaline Phosphatase Ammonia Troponin I Total Protein Albumin Globulin Albumin/Globulin Ratio Triglycerides Cholesterol LDL Cholesterol Direct HDL Cholesterol Procalcitonin TSH 3rd Generation Blood Type Confirm 08/08/18 08/08/18 08/08/18 13:12 13:12 17:00 WBC RBC Hgb Hct MCV MCH MCHC RDW Plt Count MPV Neut % (Auto) Lymph % (Auto) [place] % (Auto) Eos % (Auto) Baso % (Auto) Neut # (Auto) Lymph # (Auto) [place] # (Auto) Eos # (Auto) Baso # (Auto) Neutrophils % (Manual) Lymphocytes % (Manual) Monocytes % (Manual) Myelocytes % Platelet Estimate Polychromasia Anisocytosis (manual) PT INR APTT pCO2 pO2 HCO3 ABG pH ABG Total CO2 ABG O2 Saturation ABG O2 Content ABG Base Excess ABG Hemoglobin ABG Carboxyhemoglobin POC ABG HHb (Measured) ABG Methemoglobin ABG O2 Capacity Jose Test A-a O2 Difference Hgb O2 Saturation Vent Mode Mechanical Rate FiO2 Tidal Volume PEEP Blood Gas Comments Crit Value Called To Crit Value Called By Crit Value Read Back Blood Gas Notified Time Sodium 145 Potassium 4.8 Chloride 106 Carbon Dioxide 25 Anion Gap 19 BUN 45 H Creatinine 1.6 H Est GFR ( Amer) 52 Est GFR (Non-Af Amer) 43 POC Glucose (mg/dL) Random Glucose 269 H Lactic Acid Calcium 7.8 L Phosphorus Magnesium Total Bilirubin AST ALT Alkaline Phosphatase Ammonia 23 D Troponin I 0.3760 H* Total Protein Albumin Globulin Albumin/Globulin Ratio Triglycerides Cholesterol LDL Cholesterol Direct HDL Cholesterol Procalcitonin TSH 3rd Generation Blood Type Confirm 08/08/18 08/08/18 18:18 18:30 WBC RBC Hgb Hct MCV MCH MCHC RDW Plt Count MPV Neut % (Auto) Lymph % (Auto) [place] % (Auto) Eos % (Auto) Baso % (Auto) Neut # (Auto) Lymph # (Auto) [place] # (Auto) Eos # (Auto) Baso # (Auto) Neutrophils % (Manual) Lymphocytes % (Manual) Monocytes % (Manual) Myelocytes % Platelet Estimate Polychromasia Anisocytosis (manual) PT INR APTT pCO2 pO2 HCO3 ABG pH ABG Total CO2 ABG O2 Saturation ABG O2 Content ABG Base Excess ABG Hemoglobin ABG Carboxyhemoglobin POC ABG HHb (Measured) ABG Methemoglobin ABG O2 Capacity Jose Test A-a O2 Difference Hgb O2 Saturation Vent Mode Mechanical Rate FiO2 Tidal Volume PEEP Blood Gas Comments Crit Value Called To Crit Value Called By Crit Value Read Back Blood Gas Notified Time Sodium Potassium Chloride Carbon Dioxide Anion Gap BUN Creatinine Est GFR ( Amer) Est GFR (Non-Af Amer) POC Glucose (mg/dL) Random Glucose Lactic Acid 3.7 H Calcium Phosphorus Magnesium Total Bilirubin AST ALT Alkaline Phosphatase Ammonia Troponin I 0.6890 H* Total Protein Albumin Globulin Albumin/Globulin Ratio Triglycerides Cholesterol LDL Cholesterol Direct HDL Cholesterol Procalcitonin TSH 3rd Generation Blood Type Confirm Assessment & Plan (1) LFT elevation Assessment and Plan: Transaminases upon admission in 300s and later jaylan to 1500. Clinical picture most consistent with hepatic ischemia. Continue to monitor LFTs while patient is receiving IV fluids and blood pressure is being monitored, Status: Acute
[2018-08-09] MEDS: Acetaminophen 650mg/20.3ml solution UD PO PRN ×3 (00:29→21:47)
[2018-08-09] MEDS: Sodium Chloride 0.9% 1,000 ML IV SCH ×4 (04:03→19:48)
[2018-08-09] MEDS: Piperacillin/Tazobact 3.375 GM in Sodium Chloride 0.9% 100 ML IVPB SCH ×4 (04:04→21:36)
[2018-08-09 05:13] LABS: ABG ALLEN TEST YES; ARTERIAL BLOOD GAS HCO3 25.6 mmol/L (21-28); ARTERIAL BLOOD GAS O2 CAPACITY 16.3 mL/dL (16-24); ARTERIAL BLOOD GAS O2 CONTENT 14.5 ML/dL (15-23); ARTERIAL BLOOD GAS O2 SAT 88.8 % (95-98); ARTERIAL BLOOD GAS PCO2 41 mm/Hg (35-45); ARTERIAL BLOOD GAS PH 7.41 (7.35-7.45); ARTERIAL BLOOD GAS PO2 51 mm/Hg (80-100); ARTERIAL BLOOD GAS TCO2 27.3 mmol/L (22-28)
[2018-08-09 05:54] LABS: ALB/GLOB RATIO 0.9 (1.0-2.1); ALBUMIN 2.6 g/dL (3.5-5.0); CALCIUM 7.4 mg/dL (8.4-10.2)
--- NOTE | 2018-08-09 07:17 | RAD ---
Date of service: 08/09/2018 HISTORY: intubated COMPARISON: Chest radiographs 08/08/2018 8:24 a.m.. FINDINGS: LUNGS: No significant interval change in position of endotracheal and nasogastric tubes. Exam captured at low pulmonary volumes. Bilateral basilar airspace disease does not appear significantly changed in the interval. PLEURA: Limited left pleural effusion is not excluded. None is seen the right. No pneumothorax bilaterally. CARDIOVASCULAR: Trace atherosclerotic calcification at the thoracic arch is better seen previously. Cardiac size appears stable. No definite pulmonary vascular congestion. OSSEOUS STRUCTURES: No significant abnormalities. VISUALIZED UPPER ABDOMEN: Normal. OTHER FINDINGS: None. IMPRESSION: Suboptimal exam with image captured at low pulmonary volumes. No interval change in bilateral basilar atelectasis or infiltrate. Small left pleural effusion in question. No pulmonary vascular congestion. Cardiac silhouette stable.
--- NOTE | 2018-08-09 07:19 | CP.PCM.PN ---
<Manuel Huerta - Last Filed: 08/09/18 11:40> Subjective - Date & Time of Evaluation Date of Evaluation: 08/09/18 Time of Evaluation: 11:40 - Subjective Subjective: Patient seen and examined at bedside this morning. Patient remains intubated and responds minimally to verbal stimuli. Patient GCS 6, improved from GCS 3 s/p code blue. Objective - Vital Signs/Intake and Output Vital Signs (last 24 hours): Temp Pulse Resp BP Pulse Ox 100.9 F H 91 H 22 116/61 99 08/09/18 04:00 08/09/18 06:00 08/09/18 06:00 08/09/18 06:00 08/09/18 06:00 Intake and Output: 08/09/18 08/09/18 06:59 18:59 Intake Total 1850 Balance 1850 - Medications Medications: Current Medications Acetaminophen (Tylenol 650mg/20.3ml Solution Ud) 650 mg PO Q4 PRN PRN Reason: Temperature Last Admin: 08/09/18 00:29 Dose: 650 mg Albuterol/Ipratropium (Duoneb 3 Mg/0.5 Mg (3 Ml) Ud) 3 ml INH RQID [facility] Last Admin: 08/08/18 20:17 Dose: 3 ml Piperacillin Sod/Tazobactam (Sod 3.375 gm/ Sodium Chloride) 100 mls @ 100 mls/hr IVPB Q6 [facility]; Protocol Last Admin: 08/09/18 04:04 Dose: 100 mls/hr Azithromycin 500 mg/ Sodium (Chloride) 250 mls @ 250 mls/hr IVPB DAILY [facility]; Protocol Last Admin: 08/08/18 10:36 Dose: 250 mls/hr Norepinephrine Bitartrate 4 mg (/ Dextrose) 254 mls @ 9.53 mls/hr IV .Q24H [facility]RO; Protocol Last Titration: 08/08/18 18:22 Dose: 0 mcg/min, 0 mls/hr Sodium Chloride (Sodium Chloride 0.9%) 1,000 mls @ 150 mls/hr IV .Q6H40M P[facility]RO Stop: 08/09/18 15:54 Last Admin: 08/09/18 04:03 Dose: 150 mls/hr Insulin Human Lispro (Humalog) 0 units SC ACHS [facility]; Protocol Last Admin: 08/08/18 22:46 Dose: Not Given Lactulose (Enulose) 20 gm NG Q6 [facility] Last Admin: 08/09/18 05:06 Dose: Not Given Pantoprazole Sodium (Protonix Inj) 40 mg IVP DAILY [facility] Last Admin: 08/08/18 10:29 Dose: 40 mg - Labs Labs: 08/08/18 07:45 08/09/18 04:30 PT 17.0 Seconds (9.8-13.1) H 08/08/18 07:50 INR 1.5 08/08/18 07:50 APTT 31.7 Seconds (25.6-37.1) 08/08/18 07:50 - Constitutional Appears: No Acute Distress - Head Exam Head Exam: ATRAUMATIC, NORMAL INSPECTION, NORMOCEPHALIC - Eye Exam Additional comments: sluggish pupillary response to light - ENT Exam ENT Exam: Normal Exam Additional comments: Intubated, with OG tube attached - Respiratory Exam Respiratory Exam: Rhonchi Additional comments: On ventilator PRVC AC mode; rate 20, Tidal Volume 450, PEEP 5, O2 sat 100% - Cardiovascular Exam Cardiovascular Exam: REGULAR RHYTHM, +S1, +S2 - GI/Abdominal Exam GI & Abdominal Exam: Soft, Normal Bowel Sounds - Neurological Exam Neurological Exam: absent: Alert, Awake Additional comments: GCS 6 - Skin Skin Exam: Dry, Normal Color, Warm Assessment and Plan - Assessment and Plan (Free Text) Assessment: 73 yo male with PMH of DM2, HTN, Hyperlipidemia and depression brought in by EMS for altered mental status. CT possible Subacute infarct right posterior parasagittal parietal lobe along the watershed zone of the right [employer]/Posterior MCA territory. Patient is admitted for altered mental status, suspected CVA and suspected pneumonia. Plan: Altered mental status likely secondary to CVA - Continue aspirin and plavix - f/u carotid US - No gag reflex noted - Eyes are fixed, but sluggishly react to light - Possible Anoxic Encephalopathy - Neurology Dr. Headley, recommendations appreciated Hepatic Encephalopathy - AST/ALT 6070/3882 - Ammonia 23 - Received lactulose 200 once - c/w lactulose 20 NG tube Q6 - GI consult, Dr. Fenton, recommendations appreciated Hypoxemia possible due to aspiration pneumonia - C/W azithromycin 500 mg IV daily day 2 - C/W zosyn 3.375 gm IV Q6h day 2 - On ventilator PRVC AC rate 20, TV 450, PEEP 5, O2 100% Elevated Troponin - Troponin 0.6890 - EKG unchanged, has Hx of inferior and anterior wall MS - Possibly due to Chest compression - Consult Cardio, Dr. Gaspar, recommendations appreciated Hyperkalemia - resolved Potassium 4.4 EKG: NSR, no T wave changes. Continue half saline and d5 100ml f/u CMP Insulin dependement diabetes mellitus - Hold all Home medication as Pt is intubated - sliding scale insulin - Hypoglycemic protocol Hypertension: - Hold home medication - monitor BP Depression: - Medication on hold DVT prophylaxis: - hold lovenox due to CVA - SCD's -GI prophylaxis - Protonix 40 mg IVP Full Code <Geovanni Diaz D - Last Filed: 08/09/18 13:58> Objective - Vital Signs/Intake and Output Vital Signs (last 24 hours): Temp Pulse Resp BP Pulse Ox 100.3 F H 105 H 21 128/61 92 L 08/09/18 12:00 08/09/18 12:00 08/09/18 12:00 08/09/18 12:00 08/09/18 12:00 Intake and Output: 08/09/18 08/09/18 06:59 18:59 Intake Total 1850 350 Balance 1850 350 - Medications Medications: Current Medications Acetaminophen (Tylenol 650mg/20.3ml Solution Ud) 650 mg PO Q4 PRN PRN Reason: Temperature Last Admin: 08/09/18 00:29 Dose: 650 mg Albuterol/Ipratropium (Duoneb 3 Mg/0.5 Mg (3 Ml) Ud) 3 ml INH RQID [facility]RO Last Admin: 08/09/18 11:36 Dose: 3 ml Piperacillin Sod/Tazobactam (Sod 3.375 gm/ Sodium Chloride) 100 mls @ 100 mls/hr IVPB Q6 [facility]; Protocol Last Admin: 08/09/18 09:40 Dose: 100 mls/hr Azithromycin 500 mg/ Sodium (Chloride) 250 mls @ 250 mls/hr IVPB DAILY [facility]; Protocol Last Admin: 08/09/18 10:46 Dose: 250 mls/hr Norepinephrine Bitartrate 4 mg (/ Dextrose) 254 mls @ 9.53 mls/hr IV .Q24H [facility]; Protocol Last Titration: 08/08/18 18:22 Dose: 0 mcg/min, 0 mls/hr Sodium Chloride (Sodium Chloride 0.9%) 1,000 mls @ 150 mls/hr IV .Q6H40M [facility] Stop: 08/09/18 15:54 Last Admin: 08/09/18 13:31 Dose: 150 mls/hr Insulin Human Lispro (Humalog) 0 units SC ACHS [facility]; Protocol Pantoprazole Sodium (Protonix Inj) 40 mg IVP DAILY [facility] Last Admin: 08/09/18 09:32 Dose: 40 mg - Labs Labs: 08/09/18 04:30 08/09/18 04:30 PT 17.0 Seconds (9.8-13.1) H 08/08/18 07:50 INR 1.5 08/08/18 07:50 APTT 31.7 Seconds (25.6-37.1) 08/08/18 07:50 Attending/Attestation - Attestation I have personally seen and examined this patient.: Yes I have fully participated in the care of the patient.: Yes I have reviewed all pertinent clinical information, including history, physical exam and plan: Yes Notes (Text): 08/09/18 13:49 Patient seen and examined with resident. Case discussed and agreed with assessment. Patient was found to be a patient of Dr Pearson who saw him last on February 26, 2018. Accdg to him patient has history of DM2, HLD, CAD with stent in 2009, HTN and Polio during childhood. All blood works during that time were within normal limits. Dr Fenton, GI consult, conferred that the liver failure probably secondary to shock liver when he was first found out confused by neighbor and even got worse after the cardiac arrest.
[2018-08-09] MEDS: Albuterol-Ipratrop 3 mg / 0.5 (3 ml) UD INH SCH ×4 (07:35→19:15)
[2018-08-09 07:50] LABS: HEPATITIS B SURFACE AG Negative (NEGATIVE)
--- NOTE | 2018-08-09 07:54 | CP.CCUPN ---
CCU Subjective - Physician Review Subjective (Free Text): 08/09/18 17:33 The patient was Seen and examined by me at the bedside during ICU round, Medical records reviewed and Management issues were discussed and formulated with the house staff. 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 and called 911 because Pt appeared to be "not himself." Transferred to ICU 08/08 s/p cardiac arrest and resuscitations on the floor Patient currently on ventilator, no response to verbal stimuli ECHO done today and scheduled for 24H EEG Afebrile, NSR on the monitor Critical Care Time Spent (in minutes): 51 CCU Objective - Vital Signs / Intake & Output Vital Signs (Last 4 hours): Vital Signs Temp Pulse Resp BP Pulse Ox 08/09/18 06:00 91 H 22 116/61 99 08/09/18 04:00 100.9 F H 95 H 23 131/64 95 Intake and Output (Last 8hrs): Intake & Output 08/08/18 08/09/18 08/09/18 22:59 06:59 14:59 Intake Total 4950 1300 Output Total 500 Balance 4450 1300 Weight 188 lb Intake: IV 4400 1200 Intake, Piggyback 550 100 Output: Urine 200 Urethral (Phipps) 200 Stool 300 Other: # Bowel Movements 1 - Physical Exam Head: Positive for: Atraumatic, Normocephalic Pupils: Positive for: Non-Reactive Conjunctiva: Positive for: Normal Mouth: Positive for: Moist Mucous Membranes Nose (External): Positive for: Atraumatic Neck: Positive for: Normal Range of Motion Respiratory/Chest: Positive for: Rhonchi Cardiovascular: Positive for: Regular Rate and Rhythm Abdomen: Positive for: Normal Bowel Sounds Upper Extremity: Positive for: Normal Inspection Lower Extremity: Positive for: Normal Inspection Neurological: Positive for: Other (on ventilator, no response to verbal stimuli) - Medications Active Medications: Active Medications Generic Name Dose Route Start Last Admin Trade Name Freq PRN Reason Stop Dose Admin Acetaminophen 650 mg 08/08/18 23:25 08/09/18 00:29 Tylenol 650mg/20.3ml Solution Ud PO 650 mg Q4 PRN Administration Temperature Albuterol/Ipratropium 3 ml 08/07/18 16:00 08/09/18 07:35 Duoneb 3 Mg/0.5 Mg (3 Ml) Ud INH 3 ml RQID PEDRO Administration Piperacillin Sod/Tazobactam 100 mls @ 100 mls/hr 08/07/18 16:00 08/09/18 04:04 Sod 3.375 gm/ Sodium Chloride IVPB 100 mls/hr Q6 PEDRO Administration Protocol Azithromycin 500 mg/ Sodium 250 mls @ 250 mls/hr 08/08/18 09:00 08/08/18 10:36 Chloride IVPB 250 mls/hr DAILY PEDRO Administration Protocol Norepinephrine Bitartrate 4 mg 254 mls @ 9.53 mls/hr 08/08/18 14:15 08/08/18 18:22 / Dextrose IV 0 mcg/min .Q24H PEDRO 0 mls/hr Titration Protocol 2.5 MCG/MIN Sodium Chloride 1,000 mls @ 150 mls/hr 08/08/18 16:00 08/09/18 04:03 Sodium Chloride 0.9% IV 08/09/18 15:54 150 mls/hr .Q6H40M PEDRO Administration Insulin Human Lispro 0 units 08/07/18 16:30 08/08/18 22:46 Humalog SC Not Given ACHS PEDRO Protocol Lactulose 20 gm 08/08/18 10:00 08/09/18 05:06 Enulose NG Not Given Q6 PEDRO Pantoprazole Sodium 40 mg 08/07/18 14:15 08/08/18 10:29 Protonix Inj IVP 40 mg DAILY PEDRO Administration - Patient Studies Lab Studies: Microbiology Studies 08/08/18 14:25 Gram Stain - Final Trachasp 08/07/18 17:37 Blood Culture - Preliminary Blood-Venous NO GROWTH AFTER 24 HOURS 08/07/18 13:52 Blood Culture - Preliminary Blood-Venous NO GROWTH AFTER 24 HOURS Lab Studies 08/09/18 08/09/18 08/09/18 Range/Units 06:14 04:59 04:30 WBC (4.8-10.8) K/uL RBC (4.40-5.90) Mil/uL Hgb (12.0-18.0) g/dL Hct (35.0-51.0) % MCV (80.0-94.0) fl MCH (27.0-31.0) pg MCHC (33.0-37.0) g/dL RDW (11.5-14.5) % Plt Count (130-400) K/uL MPV (7.2-11.7) fl Neut % (Auto) (50.0-75.0) % Lymph % (Auto) (20.0-40.0) % Banner % (Auto) (0.0-10.0) % Eos % (Auto) (0.0-4.0) % Baso % (Auto) (0.0-2.0) % Neut # (Auto) (1.8-7.0) K/uL Lymph # (Auto) (1.0-4.3) K/uL Banner # (Auto) (0.0-0.8) K/uL Eos # (Auto) (0.0-0.7) K/uL Baso # (Auto) (0.0-0.2) K/uL PT (9.8-13.1) Seconds INR APTT (25.6-37.1) Seconds pCO2 41 (35-45) mm/Hg pO2 51 L (80-100) mm/Hg HCO3 25.6 (21-28) mmol/L ABG pH 7.41 (7.35-7.45) ABG Total CO2 27.3 (22-28) mmol/L ABG O2 Saturation 88.8 L (95-98) % ABG O2 Content 14.5 L (15-23) ML/dL ABG Base Excess 1.2 (-2.0-3.0) mmol/L ABG Hemoglobin 12.0 (11.7-17.4) g/dL ABG Carboxyhemoglobin 1.5 (0.5-1.5) % POC ABG HHb (Measured) 10.9 H (0.0-5.0) % ABG Methemoglobin 1.4 (0.0-3.0) % ABG O2 Capacity 16.3 (16-24) mL/dL Jose Test Yes A-a O2 Difference 611.0 mm/Hg Hgb O2 Saturation 86.2 L (95.0-98.0) % Vent Mode A/c Mechanical Rate 20 FiO2 100.0 % Tidal Volume 450 PEEP 5 Blood Gas Comments Crit Value Called To Crit Value Called By Crit Value Read Back Blood Gas Notified Time Sodium 145 (132-148) mmol/l Potassium 4.4 (3.6-5.0) MMOL/L Chloride 110 H (98-107) mmol/L Carbon Dioxide 28 (22-30) mmol/L Anion Gap 11 (10-20) BUN 55 H (9-20) mg/dl Creatinine 2.5 H (0.8-1.5) mg/dl Est GFR ( Amer) 31 Est GFR (Non-Af Amer) 26 POC Glucose (mg/dL) 245 H (65-110) mg/dL Random Glucose 243 H (75-110) mg/dL Lactic Acid (0.7-2.1) MMOL/L Calcium 7.4 L (8.4-10.2) mg/dL Phosphorus (2.5-4.5) mg/dl Magnesium (1.6-2.3) MG/DL Total Bilirubin 1.6 H (0.2-1.3) mg/dl AST 6070 H (17-59) U/L ALT 3882 H (21-72) U/L Alkaline Phosphatase 140 H D (38-126) U/L Ammonia (16-60) umo/L Troponin I (0.00-0.120) ng/mL Total Protein 5.4 L (6.3-8.2) G/DL Albumin 2.6 L D (3.5-5.0) g/dL Globulin 2.8 (2.2-3.9) gm/dL Albumin/Globulin Ratio 0.9 L (1.0-2.1) Procalcitonin (0.19-0.49) NG/ML Hep Bs Antigen (NEGATIVE) 08/08/18 08/08/18 08/08/18 Range/Units 22:37 18:30 18:18 WBC (4.8-10.8) K/uL RBC (4.40-5.90) Mil/uL Hgb (12.0-18.0) g/dL Hct (35.0-51.0) % MCV (80.0-94.0) fl MCH (27.0-31.0) pg MCHC (33.0-37.0) g/dL RDW (11.5-14.5) % Plt Count (130-400) K/uL MPV (7.2-11.7) fl Neut % (Auto) (50.0-75.0) % Lymph % (Auto) (20.0-40.0) % Banner % (Auto) (0.0-10.0) % Eos % (Auto) (0.0-4.0) % Baso % (Auto) (0.0-2.0) % Neut # (Auto) (1.8-7.0) K/uL Lymph # (Auto) (1.0-4.3) K/uL Banner # (Auto) (0.0-0.8) K/uL Eos # (Auto) (0.0-0.7) K/uL Baso # (Auto) (0.0-0.2) K/uL PT (9.8-13.1) Seconds INR APTT (25.6-37.1) Seconds pCO2 (35-45) mm/Hg pO2 (80-100) mm/Hg HCO3 (21-28) mmol/L ABG pH (7.35-7.45) ABG Total CO2 (22-28) mmol/L ABG O2 Saturation (95-98) % ABG O2 Content (15-23) ML/dL ABG Base Excess (-2.0-3.0) mmol/L ABG Hemoglobin (11.7-17.4) g/dL ABG Carboxyhemoglobin (0.5-1.5) % POC ABG HHb (Measured) (0.0-5.0) % ABG Methemoglobin (0.0-3.0) % ABG O2 Capacity (16-24) mL/dL Jose Test A-a O2 Difference mm/Hg Hgb O2 Saturation (95.0-98.0) % Vent Mode Mechanical Rate FiO2 % Tidal Volume PEEP Blood Gas Comments Crit Value Called To Crit Value Called By Crit Value Read Back Blood Gas Notified Time Sodium (132-148) mmol/l Potassium (3.6-5.0) MMOL/L Chloride (98-107) mmol/L Carbon Dioxide (22-30) mmol/L Anion Gap (10-20) BUN (9-20) mg/dl Creatinine (0.8-1.5) mg/dl Est GFR ( Amer) Est GFR (Non-Af Amer) POC Glucose (mg/dL) 248 H (65-110) mg/dL Random Glucose (75-110) mg/dL Lactic Acid 3.7 H (0.7-2.1) MMOL/L Calcium (8.4-10.2) mg/dL Phosphorus (2.5-4.5) mg/dl Magnesium (1.6-2.3) MG/DL Total Bilirubin (0.2-1.3) mg/dl AST (17-59) U/L ALT (21-72) U/L Alkaline Phosphatase (38-126) U/L Ammonia (16-60) umo/L Troponin I 0.6890 H* (0.00-0.120) ng/mL Total Protein (6.3-8.2) G/DL Albumin (3.5-5.0) g/dL Globulin (2.2-3.9) gm/dL Albumin/Globulin Ratio (1.0-2.1) Procalcitonin (0.19-0.49) NG/ML Hep Bs Antigen (NEGATIVE) 08/08/18 08/08/18 08/08/18 Range/Units 17:00 16:37 13:53 WBC (4.8-10.8) K/uL RBC (4.40-5.90) Mil/uL Hgb (12.0-18.0) g/dL Hct (35.0-51.0) % MCV (80.0-94.0) fl MCH (27.0-31.0) pg MCHC (33.0-37.0) g/dL RDW (11.5-14.5) % Plt Count (130-400) K/uL MPV (7.2-11.7) fl Neut % (Auto) (50.0-75.0) % Lymph % (Auto) (20.0-40.0) % Banner % (Auto) (0.0-10.0) % Eos % (Auto) (0.0-4.0) % Baso % (Auto) (0.0-2.0) % Neut # (Auto) (1.8-7.0) K/uL Lymph # (Auto) (1.0-4.3) K/uL Banner # (Auto) (0.0-0.8) K/uL Eos # (Auto) (0.0-0.7) K/uL Baso # (Auto) (0.0-0.2) K/uL PT (9.8-13.1) Seconds INR APTT (25.6-37.1) Seconds pCO2 (35-45) mm/Hg pO2 (80-100) mm/Hg HCO3 (21-28) mmol/L ABG pH (7.35-7.45) ABG Total CO2 (22-28) mmol/L ABG O2 Saturation (95-98) % ABG O2 Content (15-23) ML/dL ABG Base Excess (-2.0-3.0) mmol/L ABG Hemoglobin (11.7-17.4) g/dL ABG Carboxyhemoglobin (0.5-1.5) % POC ABG HHb (Measured) (0.0-5.0) % ABG Methemoglobin (0.0-3.0) % ABG O2 Capacity (16-24) mL/dL Jose Test A-a O2 Difference mm/Hg Hgb O2 Saturation (95.0-98.0) % Vent Mode Mechanical Rate FiO2 % Tidal Volume PEEP Blood Gas Comments Crit Value Called To Crit Value Called By Crit Value Read Back Blood Gas Notified Time Sodium 145 (132-148) mmol/l Potassium 4.8 (3.6-5.0) MMOL/L Chloride 106 (98-107) mmol/L Carbon Dioxide 25 (22-30) mmol/L Anion Gap 19 (10-20) BUN 45 H (9-20) mg/dl Creatinine 1.6 H (0.8-1.5) mg/dl Est GFR ( Amer) 52 Est GFR (Non-Af Amer) 43 POC Glucose (mg/dL) 264 H 227 H (65-110) mg/dL Random Glucose 269 H (75-110) mg/dL Lactic Acid (0.7-2.1) MMOL/L Calcium 7.8 L (8.4-10.2) mg/dL Phosphorus (2.5-4.5) mg/dl Magnesium (1.6-2.3) MG/DL Total Bilirubin (0.2-1.3) mg/dl AST (17-59) U/L ALT (21-72) U/L Alkaline Phosphatase (38-126) U/L Ammonia (16-60) umo/L Troponin I (0.00-0.120) ng/mL Total Protein (6.3-8.2) G/DL Albumin (3.5-5.0) g/dL Globulin (2.2-3.9) gm/dL Albumin/Globulin Ratio (1.0-2.1) Procalcitonin (0.19-0.49) NG/ML Hep Bs Antigen (NEGATIVE) 08/08/18 08/08/18 08/08/18 Range/Units 13:12 13:12 10:56 WBC (4.8-10.8) K/uL RBC (4.40-5.90) Mil/uL Hgb (12.0-18.0) g/dL Hct (35.0-51.0) % MCV (80.0-94.0) fl MCH (27.0-31.0) pg MCHC (33.0-37.0) g/dL RDW (11.5-14.5) % Plt Count (130-400) K/uL MPV (7.2-11.7) fl Neut % (Auto) (50.0-75.0) % Lymph % (Auto) (20.0-40.0) % Banner % (Auto) (0.0-10.0) % Eos % (Auto) (0.0-4.0) % Baso % (Auto) (0.0-2.0) % Neut # (Auto) (1.8-7.0) K/uL Lymph # (Auto) (1.0-4.3) K/uL Banner # (Auto) (0.0-0.8) K/uL Eos # (Auto) (0.0-0.7) K/uL Baso # (Auto) (0.0-0.2) K/uL PT (9.8-13.1) Seconds INR APTT (25.6-37.1) Seconds pCO2 42 (35-45) mm/Hg pO2 57 L (80-100) mm/Hg HCO3 18.2 L (21-28) mmol/L ABG pH 7.25 L (7.35-7.45) ABG Total CO2 19.7 L (22-28) mmol/L ABG O2 Saturation 92.4 L (95-98) % ABG O2 Content 15.0 (15-23) ML/dL ABG Base Excess -8.4 L (-2.0-3.0) mmol/L ABG Hemoglobin 11.9 (11.7-17.4) g/dL ABG Carboxyhemoglobin 1.8 H (0.5-1.5) % POC ABG HHb (Measured) 7.4 H (0.0-5.0) % ABG Methemoglobin 1.4 (0.0-3.0) % ABG O2 Capacity 16.2 (16-24) mL/dL Jose Test Yes A-a O2 Difference 604.0 mm/Hg Hgb O2 Saturation 89.4 L (95.0-98.0) % Vent Mode Prvc/ac Mechanical Rate 20 FiO2 100.0 % Tidal Volume 450 PEEP 5 Blood Gas Comments Prvc/ac20/vt450/100%/+5peep Crit Value Called To Dr. jose eduardo scanlon m.d. Crit Value Called By Christa Crit Value Read Back Y Blood Gas Notified Time 1114 Sodium (132-148) mmol/l Potassium (3.6-5.0) MMOL/L Chloride (98-107) mmol/L Carbon Dioxide (22-30) mmol/L Anion Gap (10-20) BUN (9-20) mg/dl Creatinine (0.8-1.5) mg/dl Est GFR ( Amer) Est GFR (Non-Af Amer) POC Glucose (mg/dL) (65-110) mg/dL Random Glucose (75-110) mg/dL Lactic Acid (0.7-2.1) MMOL/L Calcium (8.4-10.2) mg/dL Phosphorus (2.5-4.5) mg/dl Magnesium (1.6-2.3) MG/DL Total Bilirubin (0.2-1.3) mg/dl AST (17-59) U/L ALT (21-72) U/L Alkaline Phosphatase (38-126) U/L Ammonia 23 D (16-60) umo/L Troponin I 0.3760 H* (0.00-0.120) ng/mL Total Protein (6.3-8.2) G/DL Albumin (3.5-5.0) g/dL Globulin (2.2-3.9) gm/dL Albumin/Globulin Ratio (1.0-2.1) Procalcitonin (0.19-0.49) NG/ML Hep Bs Antigen (NEGATIVE) 08/08/18 08/08/18 08/08/18 Range/Units 10:54 08:22 08:06 WBC (4.8-10.8) K/uL RBC (4.40-5.90) Mil/uL Hgb (12.0-18.0) g/dL Hct (35.0-51.0) % MCV (80.0-94.0) fl MCH (27.0-31.0) pg MCHC (33.0-37.0) g/dL RDW (11.5-14.5) % Plt Count (130-400) K/uL MPV (7.2-11.7) fl Neut % (Auto) (50.0-75.0) % Lymph % (Auto) (20.0-40.0) % Banner % (Auto) (0.0-10.0) % Eos % (Auto) (0.0-4.0) % Baso % (Auto) (0.0-2.0) % Neut # (Auto) (1.8-7.0) K/uL Lymph # (Auto) (1.0-4.3) K/uL Banner # (Auto) (0.0-0.8) K/uL Eos # (Auto) (0.0-0.7) K/uL Baso # (Auto) (0.0-0.2) K/uL PT (9.8-13.1) Seconds INR APTT (25.6-37.1) Seconds pCO2 (35-45) mm/Hg pO2 (80-100) mm/Hg HCO3 (21-28) mmol/L ABG pH (7.35-7.45) ABG Total CO2 (22-28) mmol/L ABG O2 Saturation (95-98) % ABG O2 Content (15-23) ML/dL ABG Base Excess (-2.0-3.0) mmol/L ABG Hemoglobin (11.7-17.4) g/dL ABG Carboxyhemoglobin (0.5-1.5) % POC ABG HHb (Measured) (0.0-5.0) % ABG Methemoglobin (0.0-3.0) % ABG O2 Capacity (16-24) mL/dL Jose Test A-a O2 Difference mm/Hg Hgb O2 Saturation (95.0-98.0) % Vent Mode Mechanical Rate FiO2 % Tidal Volume PEEP Blood Gas Comments Crit Value Called To Crit Value Called By Crit Value Read Back Blood Gas Notified Time Sodium (132-148) mmol/l Potassium (3.6-5.0) MMOL/L Chloride (98-107) mmol/L Carbon Dioxide (22-30) mmol/L Anion Gap (10-20) BUN (9-20) mg/dl Creatinine (0.8-1.5) mg/dl Est GFR ( Amer) Est GFR (Non-Af Amer) POC Glucose (mg/dL) 172 H (65-110) mg/dL Random Glucose (75-110) mg/dL Lactic Acid 12.5 H* (0.7-2.1) MMOL/L Calcium (8.4-10.2) mg/dL Phosphorus (2.5-4.5) mg/dl Magnesium (1.6-2.3) MG/DL Total Bilirubin (0.2-1.3) mg/dl AST (17-59) U/L ALT (21-72) U/L Alkaline Phosphatase (38-126) U/L Ammonia (16-60) umo/L Troponin I (0.00-0.120) ng/mL Total Protein (6.3-8.2) G/DL Albumin (3.5-5.0) g/dL Globulin (2.2-3.9) gm/dL Albumin/Globulin Ratio (1.0-2.1) Procalcitonin (0.19-0.49) NG/ML Hep Bs Antigen Negative (NEGATIVE) 08/08/18 08/08/18 08/08/18 Range/Units 07:50 07:48 07:45 WBC (4.8-10.8) K/uL RBC (4.40-5.90) Mil/uL Hgb (12.0-18.0) g/dL Hct (35.0-51.0) % MCV (80.0-94.0) fl MCH (27.0-31.0) pg MCHC (33.0-37.0) g/dL RDW (11.5-14.5) % Plt Count (130-400) K/uL MPV (7.2-11.7) fl Neut % (Auto) (50.0-75.0) % Lymph % (Auto) (20.0-40.0) % Banner % (Auto) (0.0-10.0) % Eos % (Auto) (0.0-4.0) % Baso % (Auto) (0.0-2.0) % Neut # (Auto) (1.8-7.0) K/uL Lymph # (Auto) (1.0-4.3) K/uL Banner # (Auto) (0.0-0.8) K/uL Eos # (Auto) (0.0-0.7) K/uL Baso # (Auto) (0.0-0.2) K/uL PT 17.0 H (9.8-13.1) Seconds INR 1.5 APTT 31.7 (25.6-37.1) Seconds pCO2 (35-45) mm/Hg pO2 (80-100) mm/Hg HCO3 (21-28) mmol/L ABG pH (7.35-7.45) ABG Total CO2 (22-28) mmol/L ABG O2 Saturation (95-98) % ABG O2 Content (15-23) ML/dL ABG Base Excess (-2.0-3.0) mmol/L ABG Hemoglobin (11.7-17.4) g/dL ABG Carboxyhemoglobin (0.5-1.5) % POC ABG HHb (Measured) (0.0-5.0) % ABG Methemoglobin (0.0-3.0) % ABG O2 Capacity (16-24) mL/dL Jose Test A-a O2 Difference mm/Hg Hgb O2 Saturation (95.0-98.0) % Vent Mode Mechanical Rate FiO2 % Tidal Volume PEEP Blood Gas Comments Crit Value Called To Crit Value Called By Crit Value Read Back Blood Gas Notified Time Sodium (132-148) mmol/l Potassium (3.6-5.0) MMOL/L Chloride (98-107) mmol/L Carbon Dioxide (22-30) mmol/L Anion Gap (10-20) BUN (9-20) mg/dl Creatinine (0.8-1.5) mg/dl Est GFR ( Amer) Est GFR (Non-Af Amer) POC Glucose (mg/dL) (65-110) mg/dL Random Glucose (75-110) mg/dL Lactic Acid (0.7-2.1) MMOL/L Calcium (8.4-10.2) mg/dL Phosphorus (2.5-4.5) mg/dl Magnesium (1.6-2.3) MG/DL Total Bilirubin (0.2-1.3) mg/dl AST (17-59) U/L ALT (21-72) U/L Alkaline Phosphatase (38-126) U/L Ammonia 360 H* (16-60) umo/L Troponin I (0.00-0.120) ng/mL Total Protein (6.3-8.2) G/DL Albumin (3.5-5.0) g/dL Globulin (2.2-3.9) gm/dL Albumin/Globulin Ratio (1.0-2.1) Procalcitonin 0.12 L (0.19-0.49) NG/ML Hep Bs Antigen (NEGATIVE) 08/08/18 08/08/18 08/08/18 Range/Units 07:45 07:34 07:34 WBC 10.6 (4.8-10.8) K/uL RBC 5.20 (4.40-5.90) Mil/uL Hgb 13.8 (12.0-18.0) g/dL Hct 47.7 (35.0-51.0) % MCV 91.7 D (80.0-94.0) fl MCH 26.5 L (27.0-31.0) pg MCHC 28.9 L (33.0-37.0) g/dL RDW 17.5 H (11.5-14.5) % Plt Count 310 (130-400) K/uL MPV 10.6 (7.2-11.7) fl Neut % (Auto) 87.2 H (50.0-75.0) % Lymph % (Auto) 5.4 L (20.0-40.0) % Banner % (Auto) 6.8 (0.0-10.0) % Eos % (Auto) 0.0 (0.0-4.0) % Baso % (Auto) 0.6 (0.0-2.0) % Neut # (Auto) 9.3 H (1.8-7.0) K/uL Lymph # (Auto) 0.6 L (1.0-4.3) K/uL Banner # (Auto) 0.7 (0.0-0.8) K/uL Eos # (Auto) 0.0 (0.0-0.7) K/uL Baso # (Auto) 0.1 (0.0-0.2) K/uL PT (9.8-13.1) Seconds INR APTT (25.6-37.1) Seconds pCO2 73 H* (35-45) mm/Hg pO2 153 H (80-100) mm/Hg HCO3 15.0 L (21-28) mmol/L ABG pH 7.03 L* (7.35-7.45) ABG Total CO2 21.5 L (22-28) mmol/L ABG O2 Saturation 99.7 H (95-98) % ABG O2 Content 19.4 (15-23) ML/dL ABG Base Excess -12.7 L (-2.0-3.0) mmol/L ABG Hemoglobin 14.1 (11.7-17.4) g/dL ABG Carboxyhemoglobin 2.0 H (0.5-1.5) % POC ABG HHb (Measured) 0.3 (0.0-5.0) % ABG Methemoglobin 1.4 (0.0-3.0) % ABG O2 Capacity 19.5 (16-24) mL/dL Jose Test Yes A-a O2 Difference 469.0 mm/Hg Hgb O2 Saturation 96.3 (95.0-98.0) % Vent Mode Prvc/ac Mechanical Rate 12 FiO2 100.0 % Tidal Volume 450 PEEP 5 Blood Gas Comments Prvc/ac12/vt450/100%/+5peep Crit Value Called To Dr jose eduardo scanlon m.d. Crit Value Called By Christa Crit Value Read Back Y Blood Gas Notified Time 833 Sodium 146 (132-148) mmol/l Potassium 5.9 H (3.6-5.0) MMOL/L Chloride 100 (98-107) mmol/L Carbon Dioxide 25 (22-30) mmol/L Anion Gap 27 H (10-20) BUN 39 H (9-20) mg/dl Creatinine 1.4 (0.8-1.5) mg/dl Est GFR ( Amer) > 60 Est GFR (Non-Af Amer) 50 POC Glucose (mg/dL) (65-110) mg/dL Random Glucose 195 H (75-110) mg/dL Lactic Acid (0.7-2.1) MMOL/L Calcium 9.9 (8.4-10.2) mg/dL Phosphorus 11.3 H (2.5-4.5) mg/dl Magnesium 2.7 H (1.6-2.3) MG/DL Total Bilirubin 1.5 H (0.2-1.3) mg/dl AST 1721 H (17-59) U/L ALT 1559 H (21-72) U/L Alkaline Phosphatase 115 (38-126) U/L Ammonia (16-60) umo/L Troponin I 0.0430 (0.00-0.120) ng/mL Total Protein 7.0 (6.3-8.2) G/DL Albumin 3.8 (3.5-5.0) g/dL Globulin 3.2 (2.2-3.9) gm/dL Albumin/Globulin Ratio 1.2 (1.0-2.1) Procalcitonin (0.19-0.49) NG/ML Hep Bs Antigen (NEGATIVE) Laboratory Results - last 24 hr 08/08/18 08/08/18 08/08/18 07:34 07:34 07:45 WBC 10.6 RBC 5.20 Hgb 13.8 Hct 47.7 MCV 91.7 D MCH 26.5 L MCHC 28.9 L RDW 17.5 H Plt Count 310 MPV 10.6 Neut % (Auto) 87.2 H Lymph % (Auto) 5.4 L Banner % (Auto) 6.8 Eos % (Auto) 0.0 Baso % (Auto) 0.6 Neut # (Auto) 9.3 H Lymph # (Auto) 0.6 L Banner # (Auto) 0.7 Eos # (Auto) 0.0 Baso # (Auto) 0.1 PT INR APTT pCO2 73 H* pO2 153 H HCO3 15.0 L ABG pH 7.03 L* ABG Total CO2 21.5 L ABG O2 Saturation 99.7 H ABG O2 Content 19.4 ABG Base Excess -12.7 L ABG Hemoglobin 14.1 ABG Carboxyhemoglobin 2.0 H POC ABG HHb (Measured) 0.3 ABG Methemoglobin 1.4 ABG O2 Capacity 19.5 Jose Test Yes A-a O2 Difference 469.0 Hgb O2 Saturation 96.3 Vent Mode Prvc/ac Mechanical Rate 12 FiO2 100.0 Tidal Volume 450 PEEP 5 Blood Gas Comments Prvc/ac12/vt450/100%/+5peep Crit Value Called To Dr jose eduardo scanlon m.d. Crit Value Called By Christa Crit Value Read Back Y Blood Gas Notified Time 833 Sodium 146 Potassium 5.9 H Chloride 100 Carbon Dioxide 25 Anion Gap 27 H BUN 39 H Creatinine 1.4 Est GFR ( Amer) > 60 Est GFR (Non-Af Amer) 50 POC Glucose (mg/dL) Random Glucose 195 H Lactic Acid Calcium 9.9 Phosphorus 11.3 H Magnesium 2.7 H Total Bilirubin 1.5 H AST 1721 H ALT 1559 H Alkaline Phosphatase 115 Ammonia Troponin I 0.0430 Total Protein 7.0 Albumin 3.8 Globulin 3.2 Albumin/Globulin Ratio 1.2 Procalcitonin Hep Bs Antigen 08/08/18 08/08/18 08/08/18 07:45 07:48 07:50 WBC RBC Hgb Hct MCV MCH MCHC RDW Plt Count MPV Neut % (Auto) Lymph % (Auto) Banner % (Auto) Eos % (Auto) Baso % (Auto) Neut # (Auto) Lymph # (Auto) Banner # (Auto) Eos # (Auto) Baso # (Auto) PT 17.0 H INR 1.5 APTT 31.7 pCO2 pO2 HCO3 ABG pH ABG Total CO2 ABG O2 Saturation ABG O2 Content ABG Base Excess ABG Hemoglobin ABG Carboxyhemoglobin POC ABG HHb (Measured) ABG Methemoglobin ABG O2 Capacity Jose Test A-a O2 Difference Hgb O2 Saturation Vent Mode Mechanical Rate FiO2 Tidal Volume PEEP Blood Gas Comments Crit Value Called To Crit Value Called By Crit Value Read Back Blood Gas Notified Time Sodium Potassium Chloride Carbon Dioxide Anion Gap BUN Creatinine Est GFR ( Amer) Est GFR (Non-Af Amer) POC Glucose (mg/dL) Random Glucose Lactic Acid Calcium Phosphorus Magnesium Total Bilirubin AST ALT Alkaline Phosphatase Ammonia 360 H* Troponin I Total Protein Albumin Globulin Albumin/Globulin Ratio Procalcitonin 0.12 L Hep Bs Antigen 08/08/18 08/08/18 08/08/18 08:06 08:22 10:54 WBC RBC Hgb Hct MCV MCH MCHC RDW Plt Count MPV Neut % (Auto) Lymph % (Auto) Banner % (Auto) Eos % (Auto) Baso % (Auto) Neut # (Auto) Lymph # (Auto) Banner # (Auto) Eos # (Auto) Baso # (Auto) PT INR APTT pCO2 pO2 HCO3 ABG pH ABG Total CO2 ABG O2 Saturation ABG O2 Content ABG Base Excess ABG Hemoglobin ABG Carboxyhemoglobin POC ABG HHb (Measured) ABG Methemoglobin ABG O2 Capacity Jose Test A-a O2 Difference Hgb O2 Saturation Vent Mode Mechanical Rate FiO2 Tidal Volume PEEP Blood Gas Comments Crit Value Called To Crit Value Called By Crit Value Read Back Blood Gas Notified Time Sodium Potassium Chloride Carbon Dioxide Anion Gap BUN Creatinine Est GFR ( Amer) Est GFR (Non-Af Amer) POC Glucose (mg/dL) 172 H Random Glucose Lactic Acid 12.5 H* Calcium Phosphorus Magnesium Total Bilirubin AST ALT Alkaline Phosphatase Ammonia Troponin I Total Protein Albumin Globulin Albumin/Globulin Ratio Procalcitonin Hep Bs Antigen Negative 08/08/18 08/08/18 08/08/18 10:56 13:12 13:12 WBC RBC Hgb Hct MCV MCH MCHC RDW Plt Count MPV Neut % (Auto) Lymph % (Auto) Banner % (Auto) Eos % (Auto) Baso % (Auto) Neut # (Auto) Lymph # (Auto) Banner # (Auto) Eos # (Auto) Baso # (Auto) PT INR APTT pCO2 42 pO2 57 L HCO3 18.2 L ABG pH 7.25 L ABG Total CO2 19.7 L ABG O2 Saturation 92.4 L ABG O2 Content 15.0 ABG Base Excess -8.4 L ABG Hemoglobin 11.9 ABG Carboxyhemoglobin 1.8 H POC ABG HHb (Measured) 7.4 H ABG Methemoglobin 1.4 ABG O2 Capacity 16.2 Jose Test Yes A-a O2 Difference 604.0 Hgb O2 Saturation 89.4 L Vent Mode Prvc/ac Mechanical Rate 20 FiO2 100.0 Tidal Volume 450 PEEP 5 Blood Gas Comments Prvc/ac20/vt450/100%/+5peep Crit Value Called To Dr. jose eduardo scanlon m.d. Crit Value Called By Christa Crit Value Read Back Y Blood Gas Notified Time 1114 Sodium Potassium Chloride Carbon Dioxide Anion Gap BUN Creatinine Est GFR ( Amer) Est GFR (Non-Af Amer) POC Glucose (mg/dL) Random Glucose Lactic Acid Calcium Phosphorus Magnesium Total Bilirubin AST ALT Alkaline Phosphatase Ammonia 23 D Troponin I 0.3760 H* Total Protein Albumin Globulin Albumin/Globulin Ratio Procalcitonin Hep Bs Antigen 08/08/18 08/08/18 08/08/18 13:53 16:37 17:00 WBC RBC Hgb Hct MCV MCH MCHC RDW Plt Count MPV Neut % (Auto) Lymph % (Auto) Banner % (Auto) Eos % (Auto) Baso % (Auto) Neut # (Auto) Lymph # (Auto) Banner # (Auto) Eos # (Auto) Baso # (Auto) PT INR APTT pCO2 pO2 HCO3 ABG pH ABG Total CO2 ABG O2 Saturation ABG O2 Content ABG Base Excess ABG Hemoglobin ABG Carboxyhemoglobin POC ABG HHb (Measured) ABG Methemoglobin ABG O2 Capacity Jose Test A-a O2 Difference Hgb O2 Saturation Vent Mode Mechanical Rate FiO2 Tidal Volume PEEP Blood Gas Comments Crit Value Called To Crit Value Called By Crit Value Read Back Blood Gas Notified Time Sodium 145 Potassium 4.8 Chloride 106 Carbon Dioxide 25 Anion Gap 19 BUN 45 H Creatinine 1.6 H Est GFR ( Amer) 52 Est GFR (Non-Af Amer) 43 POC Glucose (mg/dL) 227 H 264 H Random Glucose 269 H Lactic Acid Calcium 7.8 L Phosphorus Magnesium Total Bilirubin AST ALT Alkaline Phosphatase Ammonia Troponin I Total Protein Albumin Globulin Albumin/Globulin Ratio Procalcitonin Hep Bs Antigen 08/08/18 08/08/18 08/08/18 18:18 18:30 22:37 WBC RBC Hgb Hct MCV MCH MCHC RDW Plt Count MPV Neut % (Auto) Lymph % (Auto) Banner % (Auto) Eos % (Auto) Baso % (Auto) Neut # (Auto) Lymph # (Auto) Banner # (Auto) Eos # (Auto) Baso # (Auto) PT INR APTT pCO2 pO2 HCO3 ABG pH ABG Total CO2 ABG O2 Saturation ABG O2 Content ABG Base Excess ABG Hemoglobin ABG Carboxyhemoglobin POC ABG HHb (Measured) ABG Methemoglobin ABG O2 Capacity Jose Test A-a O2 Difference Hgb O2 Saturation Vent Mode Mechanical Rate FiO2 Tidal Volume PEEP Blood Gas Comments Crit Value Called To Crit Value Called By Crit Value Read Back Blood Gas Notified Time Sodium Potassium Chloride Carbon Dioxide Anion Gap BUN Creatinine Est GFR ( Amer) Est GFR (Non-Af Amer) POC Glucose (mg/dL) 248 H Random Glucose Lactic Acid 3.7 H Calcium Phosphorus Magnesium Total Bilirubin AST ALT Alkaline Phosphatase Ammonia Troponin I 0.6890 H* Total Protein Albumin Globulin Albumin/Globulin Ratio Procalcitonin Hep Bs Antigen 08/09/18 08/09/18 08/09/18 04:30 04:59 06:14 WBC RBC Hgb Hct MCV MCH MCHC RDW Plt Count MPV Neut % (Auto) Lymph % (Auto) [place] % (Auto) Eos % (Auto) Baso % (Auto) Neut # (Auto) Lymph # (Auto) [place] # (Auto) Eos # (Auto) Baso # (Auto) PT INR APTT pCO2 41 pO2 51 L HCO3 25.6 ABG pH 7.41 ABG Total CO2 27.3 ABG O2 Saturation 88.8 L ABG O2 Content 14.5 L ABG Base Excess 1.2 ABG Hemoglobin 12.0 ABG Carboxyhemoglobin 1.5 POC ABG HHb (Measured) 10.9 H ABG Methemoglobin 1.4 ABG O2 Capacity 16.3 Jose Test Yes A-a O2 Difference 611.0 Hgb O2 Saturation 86.2 L Vent Mode A/c Mechanical Rate 20 FiO2 100.0 Tidal Volume 450 PEEP 5 Blood Gas Comments Crit Value Called To Crit Value Called By Crit Value Read Back Blood Gas Notified Time Sodium 145 Potassium 4.4 Chloride 110 H Carbon Dioxide 28 Anion Gap 11 BUN 55 H Creatinine 2.5 H Est GFR ( Amer) 31 Est GFR (Non-Af Amer) 26 POC Glucose (mg/dL) 245 H Random Glucose 243 H Lactic Acid Calcium 7.4 L Phosphorus Magnesium Total Bilirubin 1.6 H AST 6070 H ALT 3882 H Alkaline Phosphatase 140 H D Ammonia Troponin I Total Protein 5.4 L Albumin 2.6 L D Globulin 2.8 Albumin/Globulin Ratio 0.9 L Procalcitonin Hep Bs Antigen Fingerstick Blood Sugar Results: 245 Critical Care Progress Note - Ventilator Checklist Head of Bed 30 Degrees: Yes Daily Sedation Vacation: Yes Daily Assessment of Readiness to Wean: Yes Daily Spontaneous Breathing Trial: Yes PUD Prophalyxis: Yes DVT Prophylaxis: Yes Oral Care with Chlorhexidine Gluconate {CHG}: Yes - Extremities/Vascular Does the Patient have a Central Venous Catheter?: Yes Does the Patient need a Central Venous Catheter?: Yes Does the Patient have a Phipps Catheter?: Yes Does the Patient need a Phipps Catheter?: Yes - Nutrition Nutrition: Nutrition Category Date Time Status NPO Diet [DIET] Diets 08/07/18 Dinner Active Assessment/Plan (1) Cardiac arrest Current Visit: Yes Status: Acute Priority: High Comment: Patient S/P cardiac arrest 08/08 7:30AM was successfully resuscitated and transferred to ICU, no neurological improvements Neurology Consult appreciated, 24H EEG, frequent neuro checks, Echocardiogram, Maintain BP and glycemic control (2) Pleural effusion associated with pulmonary infection Current Visit: Yes Status: Acute Priority: High Comment: Blood C/S negative Piperacillin Sod/Tazobactam 3.375 gm IVPB Q6 Azithromycin 500 mg IVPB DAILY (3) Anoxic brain injury Current Visit: Yes Status: Acute Priority: High (4) CVA (cerebral vascular accident) Current Visit: Yes Status: Acute Priority: High (5) LFT elevation Current Visit: Yes Status: Acute Priority: High Comment: Possible ischemic hepatitis, 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
[2018-08-09 07:56] LABS: HEPATITIS A IGM NEGATIVE (NEGATIVE); HEPATITIS B CORE AB NEGATIVE (NEGATIVE)
[2018-08-09 08:03] LABS: BASO % 0.2 % (0.0-2.0); LYMPH # 0.5 K/uL (1.0-4.3); LYMPH % 2.9 % (20.0-40.0); MEAN CELL VOLUME 85.3 fl (80.0-94.0); MEAN CORPUSCULAR HEMOGLOBIN 26.1 pg (27.0-31.0); MEAN CORPUSCULAR HGB CONC 30.5 g/dL (33.0-37.0); MEAN PLATELET VOLUME 10.6 fl (7.2-11.7); MONO # 1.2 K/uL (0.0-0.8); MONO % 7.4 % (0.0-10.0); NEUT # 13.9 K/uL (1.8-7.0); NEUT % 89.5 % (50.0-75.0); NRBC % 0.2 % (0.0-0.0); RBC 4.62 Mil/uL (4.40-5.90); RED CELL DISTRIBUTION WIDTH 16.2 % (11.5-14.5); WHITE BLOOD COUNT 15.5 K/uL (4.8-10.8)
[2018-08-09 08:07] LABS: HEPATITIS C ANTIBODY NEGATIVE (NEGATIVE)
--- NOTE | 2018-08-09 09:51 | CARD ---
APPROVED REPORT Date of service: 08/08/2018 EKG Measurement Heart [id number] <Conclusion> Normal sinus rhythm Incomplete right bundle branch block Possible Inferior infarct, age undetermined Poor R wave progression Abnormal ECG
[2018-08-09] MEDS: Insulin Lispro (humaLOG) 100 Units/ml Inj SC SCH ×4 (09:54→21:43)
--- NOTE | 2018-08-09 09:59 | CARD ---
APPROVED REPORT Date of service: 08/08/2018 EKG Measurement Heart [id number] <Conclusion> Normal sinus rhythm Inferior infarct, age undetermined Anterior infarct, age undetermined Abnormal ECG
[2018-08-09] MEDS: Azithromycin 500 MG in Sodium Chloride 0.9% 250 ML IVPB SCH (10:46)
[2018-08-09 10:52] LABS: ACETAMINOPHEN < 10.0 ug/ml (10.0-30.0)
[2018-08-09 10:54] LABS: IRON < 10 ug/dL (49-181)
[2018-08-09 11:06] LABS: TOTAL IRON BINDING CAPACITY 334 ug/dL (250-450)
[2018-08-09 11:21] LABS: % IRON SATURATION 2.99 % (20-55)
[2018-08-09 11:27] LABS: ALPHA FETO PROTEIN < 0.8 IU/mL (0.0-7.22)
[2018-08-09] MEDS ORDERED: Insulin Lispro (humaLOG) 100 Units/ml Inj SC SCH (11:53)
--- NOTE | 2018-08-09 13:35 | US ---
Date of service: 08/07/2018 PROCEDURE: Duplex ultrasound of the carotid and vertebral arteries. HISTORY: acute CVA COMPARISON: None available. TECHNIQUE: Grayscale and duplex Doppler evaluation of the cervical carotid and vertebral arteries were performed. The common carotid, carotid bifurcations and cervical ICA and proximal ECA were evaluated. The vertebral arteries were evaluated for gross patency and direction. FINDINGS: RIGHT CAROTID ARTERIES: Common Carotid Artery: Maximal flow velocity of 64.9 cm/s. Carotid Bifurcation: Normal. Internal Carotid Artery:Normal. Tortuous right ICA. Heterogeneous plaque formation. Maximal flow velocity of 55.7 cm/s. External Carotid Artery (proximal branches): Maximal flow velocity of 57.5 cm/s. ICA/CCA Ratio: 0.9 LEFT CAROTID ARTERIES: Common Carotid Artery: Maximal flow velocity of 116.9 cm/s. Carotid Bifurcation: Normal. Internal Carotid Artery:Tortuous left ICA. Heterogeneous plaque formation. Maximal flow velocity of 98.7 cm/s. External Carotid Artery (proximal branches): Maximal flow velocity of cm/s. ICA/CCA Ratio: 0.8 VERTEBRAL ARTERIES: Right Vertebral Artery: Not visible Left Vertebral Artery: Not visible OTHER FINDINGS: Atherosclerotic calcification present. IMPRESSION: Right ICA degree of stenosis: Less than 50% Left ICA degree of stenosis: Less than 50% Reference Internal Carotid Artery (ICA) Peak Systolic Velocity (PSV) for above: 1. Less than 50% stenosis less than 125 cm/s peak systolic velocity 2. 50-69% stenosis 125-230cm/s peak systolic velocity 3. Greater than 70% but less than near occlusion greater than 230 cm/s peak systolic velocity
--- NOTE | 2018-08-09 13:41 | US ---
Date of service: 08/09/2018 HISTORY: elevated LFTs, elevated hemidiaphragm on XR COMPARISON: And IVC. TECHNIQUE: Sonographic evaluation of the abdomen. FINDINGS: LIVER: Measures 13.2 cm. Hepatopedal blood flow. Fatty infiltration manifest ultrasonographically as increased echogenicity of the liver parenchyma. No mass. No intrahepatic bile duct dilatation. GALLBLADDER: Unremarkable. No gallstones. COMMON BILE DUCT: Measures 3.1 mm. No stones. No dilatation. PANCREAS: Obscured by overlying bowel gas. Non diagnostic assessment of the pancreas RIGHT KIDNEY: Measures 6.4 x 11.7cm. Normal echogenicity. No calculus, mass, or hydronephrosis. LEFT KIDNEY: Measures 5.6 x 12.2cm. Normal echogenicity. No calculus, mass, or hydronephrosis. SPLEEN: Splenomegaly. Orthogonal measurements 7.9 x 14.5 cm. AORTA: Obscured by overlying bowel gas. Non diagnostic assessment of abdominal aorta IVC: Obscured by overlying bowel gas. Non diagnostic assessment of inferior vena cava. OTHER FINDINGS: None. IMPRESSION: Hepatic steatosis without focal abnormality. Splenomegaly. Limitations of the current examination: Nondiagnostic assessment of the pancreas, aorta
--- NOTE | 2018-08-09 17:25 | CP.PCM.PN ---
<Rivka German - Last Filed: 08/09/18 22:38> Subjective - Date & Time of Evaluation Date of Evaluation: 08/09/18 Time of Evaluation: 16:10 - Subjective Subjective: Neurology Consultation Follow-Up Note: Mr. Giang was evaluated by myself and Dr. Purvis this afternoon in the ICU. He is post-cardiac arrest and ROSC and is currently being managed in the ICU. He remains intubated and is without sedation. ROS unobtainable due to patient's condition. Events discussed with nursing staff. Objective - Vital Signs/Intake and Output Vital Signs (last 24 hours): Temp Pulse Resp BP Pulse Ox 101 F H 98 H 22 128/68 93 L 08/09/18 16:05 08/09/18 16:00 08/09/18 16:00 08/09/18 16:00 08/09/18 16:00 Intake and Output: 08/09/18 08/09/18 06:59 18:59 Intake Total 1850 550 Balance 1850 550 - Medications Medications: Current Medications Acetaminophen (Tylenol 650mg/20.3ml Solution Ud) 650 mg PO Q4 PRN PRN Reason: Temperature Last Admin: 08/09/18 16:05 Dose: 650 mg Albuterol/Ipratropium (Duoneb 3 Mg/0.5 Mg (3 Ml) Ud) 3 ml INH RQID PEDRO Last Admin: 08/09/18 15:07 Dose: 3 ml Piperacillin Sod/Tazobactam (Sod 3.375 gm/ Sodium Chloride) 100 mls @ 100 mls/hr IVPB Q6 PEDRO; Protocol Last Admin: 08/09/18 16:04 Dose: 100 mls/hr Azithromycin 500 mg/ Sodium (Chloride) 250 mls @ 250 mls/hr IVPB DAILY PEDRO; Protocol Last Admin: 08/09/18 10:46 Dose: 250 mls/hr Insulin Detemir (Levemir) 10 units SC Q12H PEDRO Insulin Human Lispro (Humalog) 0 units SC ACHS PEDRO; Protocol Pantoprazole Sodium (Protonix Inj) 40 mg IVP DAILY PEDRO Last Admin: 08/09/18 09:32 Dose: 40 mg - Labs Labs: 08/09/18 04:30 08/09/18 04:30 PT 17.0 Seconds (9.8-13.1) H 08/08/18 07:50 INR 1.5 08/08/18 07:50 APTT 31.7 Seconds (25.6-37.1) 08/08/18 07:50 - Head Exam Head Exam: ATRAUMATIC, NORMOCEPHALIC - Eye Exam Eye Exam: Normal appearance, PERRL Additional comments: + doll's eyes noted - ENT Exam ENT Exam: Mucous Membranes Moist Additional comments: intubated - Neck Exam Neck Exam: Normal Inspection - Respiratory Exam Additional comments: intubated - Extremities Exam Extremities Exam: Normal Inspection - Neurological Exam Additional comments: Patient responds to painful stimuli with eye opening and decerebrate and triple flexion on the left, as well as a slight withdrawal on the right. Pupils are reactive, + doll's eyes, is breathing over the ventilator, + slight gag reflex present. Unable to test strength to extremities as patient is intubated and unable to follow commands. Assessment and Plan (1) Anoxic brain injury Assessment & Plan: -24 hour EEG ordered---will follow up with results once done. -We will continue to follow the patient while in the hospital. -Please notify neuro team of any acute changes in patient's condition. Patient seen with and case discussed with Dr. Purvis. Thank you for allowing us to participate in this patient's care. Status: Acute (2) CVA (cerebral vascular accident) Assessment & Plan: Imaging: CT Head (08/07/18): Suspect acute/subacute infarct right posterior parasagittal parietal lobe along the watershed zone of the right CHANNEL SUPER[employer]OR/posterior MCA territory. Mild chronic periventricular white matter ischemic changes with a few scattered chronic appearing bilateral basal nuclei lacunar type infarcts. No acute intracranial hemorrhage. Moderate central volume loss. -Recommend starting Aspirin 300 mg MA daily (ordered). -Maintain BP within a normal range to avoid further watershed infarcts. -We will continue to follow the patient while he is in the hospital. -please notify neuro team of any acute changes in patient's condition. Patient seen with and case discussed with Dr. Purvis. Thank you for the consultation. Status: Acute <RonnieGautami - Last Filed: 08/10/18 14:32> Objective - Vital Signs/Intake and Output Vital Signs (last 24 hours): Temp Pulse Resp BP Pulse Ox 101 F H 93 H 25 H 104/69 90 L 08/10/18 08:00 08/10/18 08:00 08/10/18 08:00 08/10/18 08:00 08/10/18 08:00 Intake and Output: 08/10/18 08/10/18 06:59 18:59 Intake Total 2000 150 Output Total 50 5 Balance 1950 145 - Medications Medications: Current Medications Acetaminophen (Tylenol 650mg/20.3ml Solution Ud) 650 mg PO Q4 PRN PRN Reason: Temperature Last Admin: 08/09/18 21:47 Dose: 650 mg Albuterol/Ipratropium (Duoneb 3 Mg/0.5 Mg (3 Ml) Ud) 3 ml INH RQID PEDRO Last Admin: 08/10/18 11:20 Dose: 3 ml Aspirin (Aspirin Supp) 300 mg MA DAILY PEDRO Piperacillin Sod/Tazobactam (Sod 3.375 gm/ Sodium Chloride) 100 mls @ 100 ml s/hr IVPB Q6 PEDRO; Protocol Last Admin: 08/10/18 10:58 Dose: 100 mls/hr Azithromycin 500 mg/ Sodium (Chloride) 250 mls @ 250 mls/hr IVPB DAILY PEDRO; Protocol Last Admin: 08/10/18 09:30 Dose: 250 mls/hr Dextrose/Sodium Chloride (Dextrose 5%/0.45% Ns 1000 Ml) 1,000 mls @ 150 mls/hr IV .Q6H40M PEDRO Stop: 08/11/18 06:35 Insulin Detemir (Levemir) 10 units SC Q12H PEDRO Last Admin: 08/10/18 09:28 Dose: 10 units Insulin Human Lispro (Humalog) 0 units SC ACHS PEDRO; Protocol Last Admin: 08/10/18 12:26 Dose: Not Given Pantoprazole Sodium (Protonix Inj) 40 mg IVP DAILY PEDRO Last Admin: 08/10/18 09:29 Dose: 40 mg - Labs Labs: 08/10/18 04:30 08/10/18 04:30 PT 17.0 Seconds (9.8-13.1) H 08/08/18 07:50 INR 1.5 08/08/18 07:50 APTT 31.7 Seconds (25.6-37.1) 08/08/18 07:50 Assessment and Plan - Assessment and Plan (Free Text) Assessment: 73 yr old male who has a new subacute stroke in MCA region, and with PLEDS on EEG. He may also be having seizures. Agree with nurse practitioner assessment and plan. Thank you Dr. puvris Neurology
[2018-08-09] MEDS: Insulin Detemir 100 Units/ml Inj SC SCH (21:44)
[2018-08-09] MEDS ORDERED: Insulin Detemir 100 Units/ml Inj SC SCH (22:00)
--- NOTE | 2018-08-09 22:02 | CP.PCM.PN ---
Subjective - Date & Time of Evaluation Date of Evaluation: 08/09/18 Time of Evaluation: 11:00 - Subjective Subjective: Patient remains intubated. Objective - Vital Signs/Intake and Output Vital Signs (last 24 hours): Temp Pulse Resp BP Pulse Ox 100.5 F H 106 H 27 H 120/59 L 93 L 08/09/18 21:47 08/09/18 21:00 08/09/18 21:00 08/09/18 21:00 08/09/18 21:00 Intake and Output: 08/09/18 08/10/18 18:59 06:59 Intake Total 2200 550 Output Total 130 Balance 2070 550 - Medications Medications: Current Medications Acetaminophen (Tylenol 650mg/20.3ml Solution Ud) 650 mg PO Q4 PRN PRN Reason: Temperature Last Admin: 08/09/18 21:47 Dose: 650 mg Albuterol/Ipratropium (Duoneb 3 Mg/0.5 Mg (3 Ml) Ud) 3 ml INH RQID PEDRO Last Admin: 08/09/18 19:15 Dose: 3 ml Piperacillin Sod/Tazobactam (Sod 3.375 gm/ Sodium Chloride) 100 mls @ 100 mls/hr IVPB Q6 PEDRO; Protocol Last Admin: 08/09/18 21:36 Dose: 100 mls/hr Azithromycin 500 mg/ Sodium (Chloride) 250 mls @ 250 mls/hr IVPB DAILY PEDRO; Protocol Last Admin: 08/09/18 10:46 Dose: 250 mls/hr Insulin Detemir (Levemir) 10 units SC Q12H PEDRO Last Admin: 08/09/18 21:44 Dose: 10 units Insulin Human Lispro (Humalog) 0 units SC ACHS PEDRO; Protocol Last Admin: 08/09/18 21:43 Dose: Not Given Pantoprazole Sodium (Protonix Inj) 40 mg IVP DAILY PEDRO Last Admin: 08/09/18 09:32 Dose: 40 mg - Labs Labs: 08/09/18 04:30 08/09/18 04:30 PT 17.0 Seconds (9.8-13.1) H 08/08/18 07:50 INR 1.5 08/08/18 07:50 APTT 31.7 Seconds (25.6-37.1) 08/08/18 07:50 - Head Exam Head Exam: ATRAUMATIC - Eye Exam Eye Exam: Normal appearance - ENT Exam ENT Exam: Normal Exam - Respiratory Exam Respiratory Exam: Clear to Ausculation Bilateral - Cardiovascular Exam Cardiovascular Exam: REGULAR RHYTHM - GI/Abdominal Exam GI & Abdominal Exam: Distended, Soft, Normal Bowel Sounds Assessment and Plan (1) LFT elevation Assessment & Plan: LFTs higher than yesterday. Likely from ischemia due to reduced blood flow prior to hospitalization and during cardiac arrest. Currently normotensive. Continue IV hydration Status: Acute
--- NOTE | 2018-08-09 23:33 | CP.PCM.CON ---
History of Present Illness - History of Present Illness History of Present Illness: patient with Pneumonia following cardiac arrest. Hx of DM, HTN CVA. Currrently intubated on 100% O2. HEAD: NEG ADENO SLUGGISH PUPILS. Lungs Rhonchi bilateral. No c,c,e Neuro: patient sedated. Plan: cont care as per ICU PEEP incrased to 8 May need ECMO if O2 drops on current settings. PUD and DVT Px. Past Patient History - Infectious Disease Hx of Infectious Diseases: None - Past Medical History & Family History Past Medical History?: Yes - Past Social History Smoking Status: Unknown If Ever Smoked - CARDIAC Hx Cardiac Disorders: Yes - ENDOCRINE/METABOLIC Hx Endocrine Disorders: Yes - PSYCHIATRIC Hx Substance Use: No - ANESTHESIA Hx Anesthesia: Yes Hx Anesthesia Reactions: No Hx Malignant Hyperthermia: No Has any member of the family had a problem w/ anesthesia?: No Meds Allergies/Adverse Reactions: Allergies Allergy/AdvReac Type Severity Reaction Status Date / Time No Known Allergies Allergy Verified 08/07/18 09:44 - Medications Medications: Current Medications Acetaminophen (Tylenol 650mg/20.3ml Solution Ud) 650 mg PO Q4 PRN PRN Reason: Temperature Last Admin: 08/09/18 21:47 Dose: 650 mg Albuterol/Ipratropium (Duoneb 3 Mg/0.5 Mg (3 Ml) Ud) 3 ml INH RQID PEDRO Last Admin: 08/09/18 19:15 Dose: 3 ml Aspirin (Aspirin Supp) 300 mg HI DAILY PEDRO Piperacillin Sod/Tazobactam (Sod 3.375 gm/ Sodium Chloride) 100 mls @ 100 mls/hr IVPB Q6 PEDRO; Protocol Last Admin: 08/09/18 21:36 Dose: 100 mls/hr Azithromycin 500 mg/ Sodium (Chloride) 250 mls @ 250 mls/hr IVPB DAILY PEDRO; Protocol Last Admin: 08/09/18 10:46 Dose: 250 mls/hr Insulin Detemir (Levemir) 10 units SC Q12H PEDRO Last Admin: 08/09/18 21:44 Dose: 10 units Insulin Human Lispro (Humalog) 0 units SC ACHS PEDRO; Protocol Last Admin: 08/09/18 21:43 Dose: Not Given Pantoprazole Sodium (Protonix Inj) 40 mg IVP DAILY PEDRO Last Admin: 11/26/18 09:32 Dose: 40 mg Results - Vital Signs Recent Vital Signs: Last Vital Signs Temp 100.5 F H 08/09/18 21:47 Pulse 104 H 08/09/18 22:00 Resp 24 08/09/18 22:00 BP 117/70 08/09/18 22:00 Pulse Ox 92 L 08/09/18 22:00 - Labs Result Diagrams: 08/09/18 04:30 08/09/18 04:30 Labs: Laboratory Results - last 24 hr 08/08/18 08/08/18 08/08/18 08:22 10:54 13:53 WBC RBC Hgb Hct MCV MCH MCHC RDW Plt Count MPV Neut % (Auto) Lymph % (Auto) [place] % (Auto) Eos % (Auto) Baso % (Auto) Neut # (Auto) Lymph # (Auto) [place] # (Auto) Eos # (Auto) Baso # (Auto) pCO2 pO2 HCO3 ABG pH ABG Total CO2 ABG O2 Saturation ABG O2 Content ABG Base Excess ABG Hemoglobin ABG Carboxyhemoglobin POC ABG HHb (Measured) ABG Methemoglobin ABG O2 Capacity Jose Test A-a O2 Difference Hgb O2 Saturation Vent Mode Mechanical Rate FiO2 Tidal Volume PEEP Sodium Potassium Chloride Carbon Dioxide Anion Gap BUN Creatinine Est GFR ( Amer) Est GFR (Non-Af Amer) POC Glucose (mg/dL) 172 H 227 H Random Glucose Calcium Iron TIBC % Saturation Ferritin Total Bilirubin AST ALT Alkaline Phosphatase Total Protein Albumin Globulin Albumin/Globulin Ratio Alpha Fetoprotein Acetaminophen Hepatitis A IgM Ab Negative Hep Bs Antigen Negative Hep B Core IgM Ab Negative Hepatitis C Antibody Negative 08/08/18 08/08/18 08/09/18 16:37 22:37 04:30 WBC RBC Hgb Hct MCV MCH MCHC RDW Plt Count MPV Neut % (Auto) Lymph % (Auto) [place] % (Auto) Eos % (Auto) Baso % (Auto) Neut # (Auto) Lymph # (Auto) [place] # (Auto) Eos # (Auto) Baso # (Auto) pCO2 pO2 HCO3 ABG pH ABG Total CO2 ABG O2 Saturation ABG O2 Content ABG Base Excess ABG Hemoglobin ABG Carboxyhemoglobin POC ABG HHb (Measured) ABG Methemoglobin ABG O2 Capacity Jose Test A-a O2 Difference Hgb O2 Saturation Vent Mode Mechanical Rate FiO2 Tidal Volume PEEP Sodium 145 Potassium 4.4 Chloride 110 H Carbon Dioxide 28 Anion Gap 11 BUN 55 H Creatinine 2.5 H Est GFR ( Amer) 31 Est GFR (Non-Af Amer) 26 POC Glucose (mg/dL) 264 H 248 H Random Glucose 243 H Calcium 7.4 L Iron TIBC % Saturation Ferritin Total Bilirubin 1.6 H AST 6070 H ALT 3882 H Alkaline Phosphatase 140 H D Total Protein 5.4 L Albumin 2.6 L D Globulin 2.8 Albumin/Globulin Ratio 0.9 L Alpha Fetoprotein Acetaminophen Hepatitis A IgM Ab Hep Bs Antigen Hep B Core IgM Ab Hepatitis C Antibody 08/09/18 08/09/18 08/09/18 04:30 04:59 06:14 WBC 15.5 H RBC 4.62 Hgb 12.0 Hct 39.4 MCV 85.3 D MCH 26.1 L MCHC 30.5 L RDW 16.2 H Plt Count 219 MPV 10.6 Neut % (Auto) 89.5 H Lymph % (Auto) 2.9 L [place] % (Auto) 7.4 Eos % (Auto) 0.0 Baso % (Auto) 0.2 Neut # (Auto) 13.9 H Lymph # (Auto) 0.5 L [place] # (Auto) 1.2 H Eos # (Auto) 0.0 Baso # (Auto) 0.0 pCO2 41 pO2 51 L HCO3 25.6 ABG pH 7.41 ABG Total CO2 27.3 ABG O2 Saturation 88.8 L ABG O2 Content 14.5 L ABG Base Excess 1.2 ABG Hemoglobin 12.0 ABG Carboxyhemoglobin 1.5 POC ABG HHb (Measured) 10.9 H ABG Methemoglobin 1.4 ABG O2 Capacity 16.3 Jose Test Yes A-a O2 Difference 611.0 Hgb O2 Saturation 86.2 L Vent Mode A/c Mechanical Rate 20 FiO2 100.0 Tidal Volume 450 PEEP 5 Sodium Potassium Chloride Carbon Dioxide Anion Gap BUN Creatinine Est GFR ( Amer) Est GFR (Non-Af Amer) POC Glucose (mg/dL) 245 H Random Glucose Calcium Iron TIBC % Saturation Ferritin Total Bilirubin AST ALT Alkaline Phosphatase Total Protein Albumin Globulin Albumin/Globulin Ratio Alpha Fetoprotein Acetaminophen Hepatitis A IgM Ab Hep Bs Antigen Hep B Core IgM Ab Hepatitis C Antibody 08/09/18 08/09/18 08/09/18 10:28 10:28 10:28 WBC RBC Hgb Hct MCV MCH MCHC RDW Plt Count MPV Neut % (Auto) Lymph % (Auto) [place] % (Auto) Eos % (Auto) Baso % (Auto) Neut # (Auto) Lymph # (Auto) [place] # (Auto) Eos # (Auto) Baso # (Auto) pCO2 pO2 HCO3 ABG pH ABG Total CO2 ABG O2 Saturation ABG O2 Content ABG Base Excess ABG Hemoglobin ABG Carboxyhemoglobin POC ABG HHb (Measured) ABG Methemoglobin ABG O2 Capacity Jose Test A-a O2 Difference Hgb O2 Saturation Vent Mode Mechanical Rate FiO2 Tidal Volume PEEP Sodium Potassium Chloride Carbon Dioxide Anion Gap BUN Creatinine Est GFR ( Amer) Est GFR (Non-Af Amer) POC Glucose (mg/dL) Random Glucose Calcium Iron < 10 L TIBC 334 % Saturation 2.99 L Ferritin 53.6 Total Bilirubin AST ALT Alkaline Phosphatase Total Protein Albumin Globulin Albumin/Globulin Ratio Alpha Fetoprotein < 0.8 Acetaminophen < 10.0 L Hepatitis A IgM Ab Hep Bs Antigen Hep B Core IgM Ab Hepatitis C Antibody 08/09/18 08/09/18 08/09/18 10:58 16:20 21:31 WBC RBC Hgb Hct MCV MCH MCHC RDW Plt Count MPV Neut % (Auto) Lymph % (Auto) [place] % (Auto) Eos % (Auto) Baso % (Auto) Neut # (Auto) Lymph # (Auto) [place] # (Auto) Eos # (Auto) Baso # (Auto) pCO2 pO2 HCO3 ABG pH ABG Total CO2 ABG O2 Saturation ABG O2 Content ABG Base Excess ABG Hemoglobin ABG Carboxyhemoglobin POC ABG HHb (Measured) ABG Methemoglobin ABG O2 Capacity Jose Test A-a O2 Difference Hgb O2 Saturation Vent Mode Mechanical Rate FiO2 Tidal Volume PEEP Sodium Potassium Chloride Carbon Dioxide Anion Gap BUN Creatinine Est GFR ( Amer) Est GFR (Non-Af Amer) POC Glucose (mg/dL) 264 H 230 H 205 H Random Glucose Calcium Iron TIBC % Saturation Ferritin Total Bilirubin AST ALT Alkaline Phosphatase Total Protein Albumin Globulin Albumin/Globulin Ratio Alpha Fetoprotein Acetaminophen Hepatitis A IgM Ab Hep Bs Antigen Hep B Core IgM Ab Hepatitis C Antibody
[2018-08-10] MEDS: Sodium Chloride 0.9% 1,000 ML IV SCH ×2 (00:30→02:03)
[2018-08-10] MEDS: Piperacillin/Tazobact 3.375 GM in Sodium Chloride 0.9% 100 ML IVPB SCH ×3 (03:27→15:55)
--- NOTE | 2018-08-10 04:08 | CON ---
DATE: 08/09/2018 LOCATION: In room 422, ICU. HISTORY OF PRESENT ILLNESS: This is a 73-year-old male with known history of type 2 insulin-requiring diabetes, presenting here with an acute CVA and altered mental status, and was evaluated to have a right posterior parasagittal infarct and subsequently developed acute respiratory failure and is currently endotracheally intubated and is being referred now for diabetic evaluation and management. PAST MEDICAL HISTORY: As mentioned above, history of type 2 insulin-requiring diabetes on a combination of Levemir given as 20 units subcutaneously in the morning and 30 units at bedtime with metformin at 1 g b.i.d. and glimepiride 1 mg b.i.d. as given. History of hypertension and dyslipidemia, currently on losartan at 100 mg daily and simvastatin at 40 mg daily. History of generalized anxiety and depression, and currently on Zoloft taken as 25 mg once daily. History of coronary artery disease with previous coronary stent placements. FAMILY HISTORY: Positive for hypertension and diabetes. SOCIAL HISTORY: The patient has supportive family, but lives alone with no known substance use. REVIEW OF SYSTEMS: As mentioned above, not possible at this time as the patient is intubated and sedated, but the chart has been reviewed in detail, and the consultants' notes and nurses' notes have also been reviewed in detail. PHYSICAL EXAMINATION: GENERAL: This is an average-built male, in no apparent distress. VITAL SIGNS: A blood pressure of 140/80, pulse of 100 beats per minute and regular, temperature 98, respirations as per ventilator parameters. Height is 5 feet 7 inches, weight is 188 pounds. HEENT: Head, normocephalic and anicteric with pink conjunctivae. Funduscopy not possible at this time. EARS, NOSE, AND THROAT: Otherwise normal. NECK: Supple. Thyroid gland is normal in size. No carotid bruits or cervical adenopathy. CARDIOPULMONARY: Some adynamic precordium. S1, S2 are rapid and regular. LUNGS: Show scattered rhonchi. ABDOMEN: Obese, soft with positive bowel sounds. EXTREMITIES: No peripheral edema. Pulses are +2 bilaterally. LABORATORIES: His chemistries: BUN of 55, sodium 145, potassium 4.4, chloride 110, CO2 28, glucose 243, and creatinine 2.5. His liver transaminases are markedly elevated today with an AST of 6070 and an ALT of 3882. Bilirubin is 1.6. The glucose levels have ranged from 245-264 mg per dL. ASSESSMENT: This is a 73-year-old male with an acute cerebrovascular accident with supervening acute respiratory failure, currently endotracheally intubated, and is now being referred for diabetic evaluation and management. He also has previous history of type 2 insulin-requiring diabetes on a dual regimen, using Levemir therapy as mentioned. He also has diabetic microvascular complications of polyneuropathy and nephropathy with underlying chronic kidney disease. Moreover, he also has diabetic macrovascular complications of acute cerebrovascular disease with known history of coronary artery disease as noted. PLAN OF MANAGEMENT: We will concur with the present management of all the different specialists at this time, and from the endocrine view point, we will add basal insulin given as Levemir at 10 units subcutaneously every 12 hours at 10 a.m. and 10 p.m. daily to start tonight. We will modify the coverage scale to obviate hypoglycemia, and detailed orders have been given, for coverage only to be given above 250 mg per dL. We will observe his glycemic fluctuations overnight and titrate his dose regimen accordingly. We will obtain a hemoglobin A1c to confirm his prior glycemic control, and baseline thyroid function studies will be ordered. We will obtain serial chemistries and supplement accordingly needed. We will follow. Courtney Pan MD
[2018-08-10 04:36] LABS: ABG ALLEN TEST YES; ARTERIAL BLOOD GAS HCO3 22.3 mmol/L (21-28); ARTERIAL BLOOD GAS HEMOGLOBIN 13.1 g/dL (11.7-17.4); ARTERIAL BLOOD GAS O2 CONTENT 15.3 ML/dL (15-23); ARTERIAL BLOOD GAS O2 SAT 85.2 % (95-98); ARTERIAL BLOOD GAS PCO2 41 mm/Hg (35-45); ARTERIAL BLOOD GAS PH 7.35 (7.35-7.45); ARTERIAL BLOOD GAS PO2 48 mm/Hg (80-100); ARTERIAL BLOOD GAS TCO2 23.9 mmol/L (22-28)
[2018-08-10 05:42] LABS: HEMOGLOBIN 12.7 g/dL (12.0-18.0); MEAN CELL VOLUME 84.1 fl (80.0-94.0); RBC 4.88 Mil/uL (4.40-5.90); RED CELL DISTRIBUTION WIDTH 16.9 % (11.5-14.5); WHITE BLOOD COUNT 15.2 K/uL (4.8-10.8)
[2018-08-10 06:04] LABS: ALB/GLOB RATIO 0.9 (1.0-2.1); ALBUMIN 2.6 g/dL (3.5-5.0); CALCIUM 7.1 mg/dL (8.4-10.2)
[2018-08-10] MEDS: Albuterol-Ipratrop 3 mg / 0.5 (3 ml) UD INH SCH ×4 (07:10→19:33)
--- NOTE | 2018-08-10 07:11 | CP.PCM.PN ---
<Manuel Huerta - Last Filed: 08/10/18 11:52> Subjective - Date & Time of Evaluation Date of Evaluation: 08/10/18 Time of Evaluation: 11:16 - Subjective Subjective: Patient seen and examined at bedside this morning. Patient remains intubated and responds to painful stimuli. Patient remains GCS 6 s/p code blue. Patient remains intubated w/ severe ARDS. O2 sat 89-92% despite FiO2 100%. Changed settings on vent; PRVC mode, rate 22, TV 400, PEEP 10, FiO2 100% Objective - Vital Signs/Intake and Output Vital Signs (last 24 hours): Temp Pulse Resp BP Pulse Ox 100 F H 93 H 25 H 87/54 L 92 L 08/10/18 04:00 08/10/18 06:00 08/10/18 06:00 08/10/18 06:00 08/10/18 06:00 Intake and Output: 08/10/18 08/10/18 06:59 18:59 Intake Total 2000 Output Total 50 Balance 1950 - Medications Medications: Current Medications Acetaminophen (Tylenol 650mg/20.3ml Solution Ud) 650 mg PO Q4 PRN PRN Reason: Temperature Last Admin: 08/09/18 21:47 Dose: 650 mg Albuterol/Ipratropium (Duoneb 3 Mg/0.5 Mg (3 Ml) Ud) 3 ml INH RQID [facility] Last Admin: 08/09/18 19:15 Dose: 3 ml Aspirin (Aspirin Supp) 300 mg [place] DAILY [facility] Piperacillin Sod/Tazobactam (Sod 3.375 gm/ Sodium Chloride) 100 mls @ 100 mls/hr IVPB Q6 [facility]; Protocol Last Admin: 08/10/18 03:27 Dose: 100 mls/hr Azithromycin 500 mg/ Sodium (Chloride) 250 mls @ 250 mls/hr IVPB DAILY [facility]; Protocol Last Admin: 08/09/18 10:46 Dose: 250 mls/hr Dextrose/Sodium Chloride (Dextrose 5%/0.45% Ns 1000 Ml) 1,000 mls @ 150 mls/hr IV .Q6H40M [facility] Stop: 08/11/18 06:35 Insulin Detemir (Levemir) 10 units SC Q12H [facility] Last Admin: 08/09/18 21:44 Dose: 10 units Insulin Human Lispro (Humalog) 0 units SC ACHS [facility]; Protocol Last Admin: 08/09/18 21:43 Dose: Not Given Pantoprazole Sodium (Protonix Inj) 40 mg IVP DAILY [facility] Last Admin: 08/09/18 09:32 Dose: 40 mg - Labs Labs: 08/10/18 04:30 08/10/18 04:30 PT 17.0 Seconds (9.8-13.1) H 08/08/18 07:50 INR 1.5 08/08/18 07:50 APTT 31.7 Seconds (25.6-37.1) 08/08/18 07:50 - Constitutional Appears: No Acute Distress - Head Exam Head Exam: ATRAUMATIC, NORMAL INSPECTION, NORMOCEPHALIC - Eye Exam Eye Exam: Scleral icterus. absent: PERRL (sluggish pupillary responses) - ENT Exam Additional comments: Intubated, with OG tube attached - Respiratory Exam Respiratory Exam: Rhonchi Additional comments: On ventilator PRVC mode; rate 22, Tidal Volume 400, PEEP 10, O2 sat 100% - Cardiovascular Exam Cardiovascular Exam: REGULAR RHYTHM, +S1, +S2 - GI/Abdominal Exam GI & Abdominal Exam: Soft, Normal Bowel Sounds - Extremities Exam Additional comments: stasis dermatitis on right anterior tibia - Neurological Exam Neurological Exam: absent: Alert, Awake Additional comments: GCS 6 - Skin Skin Exam: Dry Assessment and Plan - Assessment and Plan (Free Text) Assessment: 73 yo male with PMH of DM2, HTN, Hyperlipidemia and depression brought in by EMS for altered mental status. CT possible Subacute infarct right posterior parasagittal parietal lobe along the watershed zone of the right BAND SINGER/Posterior MCA territory. Patient is admitted for altered mental status, suspected CVA and suspected pneumonia. Plan: Altered mental status likely secondary to CVA - ASA 300 mg CA daily - carotid US: Right and Left IC stenosis <50% - No gag reflex noted - Eyes are fixed, but sluggishly react to light - Possible Anoxic Encephalopathy - Neurology Dr. Headley, recommendations appreciated Hepatic Encephalopathy - AST/ALT 1621/2975 - Ammonia 17 - Received lactulose 200 once - DC lactulose 20 NG tube Q6 - GI consult, Dr. Fenton, recommendations appreciated Hypoxemia possible due to aspiration pneumonia - C/W azithromycin 500 mg IV daily day 3 - C/W zosyn 3.375 gm IV Q6h day 3 - On ventilator PRVC AC rate 20, TV 450, PEEP 5, O2 100% ARDS - severe - FiO2 ratio 50 - PRVC rate 22, TV 400, PEEP 10, FiO2 100% - Pulmonary consult, Dr. Stewart, recommendations appreciated Elevated Troponin - Troponin 0.6890 - EKG unchanged, has Hx of inferior and anterior wall FL - Possibly due to Chest compression - Echo: shows preserved left ventricular systolic function with moderate aortic stenosis and is significantly enlarged right ventricle with elevated pulmonary artery systolic pressure - Cardiology consult, Dr. Gaspar, recommendations appreciated RIVER - Cr 4.0 - on IVF - s/p code blue, possible ischemia/infarct of kidneys - Nephrology consult, Dr. Vences Hyperkalemia - resolved - Potassium 5.0 - EKG: NSR, no T wave changes. - C/W D5 1/2 NS @ 150 mL/hr - f/u CMP Insulin dependement diabetes mellitus - uncontrolled - Hold all Home medication as Pt is intubated - sliding scale insulin - Hypoglycemic protocol - endocrine consult, Dr. Pan, recommendations appreciated Hypertension: - Hold home medication - monitor BP Depression: - Medication on hold DVT prophylaxis: - hold lovenox due to CVA - SCD's -GI prophylaxis - Protonix 40 mg IVP <Anita Mcfadden - Last Filed: 08/10/18 16:51> Objective - Vital Signs/Intake and Output Vital Signs (last 24 hours): Temp Pulse Resp BP Pulse Ox 101 F H 103 H 18 122/72 96 08/10/18 15:23 08/10/18 14:00 08/10/18 14:00 08/10/18 14:00 08/10/18 14:00 Intake and Output: 08/10/18 08/10/18 06:59 18:59 Intake Total 1999 1100 Output Total 50 5 Balance 1950 1095 - Medications Medications: Current Medications Acetaminophen (Tylenol 650mg/20.3ml Solution Ud) 650 mg PO Q4 PRN PRN Reason: Temperature Last Admin: 08/10/18 15:23 Dose: 650 mg Albuterol/Ipratropium (Duoneb 3 Mg/0.5 Mg (3 Ml) Ud) 3 ml INH RQID [facility] Last Admin: 08/10/18 15:35 Dose: 3 ml Aspirin (Aspirin) 325 mg PO DAILY [facility] Last Admin: 08/10/18 15:24 Dose: 325 mg Piperacillin Sod/Tazobactam (Sod 3.375 gm/ Sodium Chloride) 100 mls @ 100 mls/hr IVPB Q6 [facility]; Protocol Last Admin: 08/10/18 15:55 Dose: 100 mls/hr Azithromycin 500 mg/ Sodium (Chloride) 250 mls @ 250 mls/hr IVPB DAILY [facility]; Protocol Last Admin: 08/10/18 09:30 Dose: 250 mls/hr Dextrose/Sodium Chloride (Dextrose 5%/0.45% Ns 1000 Ml) 1,000 mls @ 150 mls/hr IV .Q6H40M [facility] Stop: 08/11/18 06:35 Last Admin: 08/10/18 15:38 Dose: 150 mls/hr Acyclovir 1,000 mg/ Sodium (Chloride) 270 mls @ 270 mls/hr IV STAT [facility]; Protocol Stop: 08/10/18 17:12 Levetiracetam 1,000 mg/ Sodium (Chloride) 110 mls @ 210 mls/hr IVPB ONCE ONE Stop: 08/10/18 16:44 Levetiracetam 1,000 mg/ Sodium (Chloride) 110 mls @ 210 mls/hr IVPB Q12 [facility] Acyclovir 800 mg/ Sodium (Chloride) 250 mls @ 250 mls/hr IVPB BID [facility]; Protocol Insulin Detemir (Levemir) 12 units SC Q12H [facility] Insulin Human Lispro (Humalog) 0 units SC ACHS [facility]; Protocol Last Admin: 08/10/18 12:26 Dose: Not Given Pantoprazole Sodium (Protonix Inj) 40 mg IVP DAILY [facility] Last Admin: 08/10/18 09:29 Dose: 40 mg - Labs Labs: 08/10/18 04:30 08/10/18 04:30 PT 17.0 Seconds (9.8-13.1) H 08/08/18 07:50 INR 1.5 08/08/18 07:50 APTT 31.7 Seconds (25.6-37.1) 08/08/18 07:50 Attending/Attestation - Attestation I have personally seen and examined this patient.: Yes I have fully participated in the care of the patient.: Yes I have reviewed all pertinent clinical information, including history, physical exam and plan: Yes Notes (Text): Acute/Subacute CVA Respiratory Failure with Hypoxemia prob sec to Aspiration Pneumonia Toxic/Metabolic/Hepatic Encephalopathy Shock Liver Acute Kidney Injury likely ATN -Pt remains intubated on Vent - unresponsive to pain - cont IV Zosyn and Azithro -Nephrology rec Hemodialysis
--- NOTE | 2018-08-10 07:35 | CARD ---
APPROVED REPORT Date of service: 08/09/2018 EXAM: Two-dimensional and M-mode echocardiogram with Doppler and color Doppler. Other Information Quality : AverageRhythm : NSR Technically limited study due to Pt on Vent INDICATION CVA/TIA 2D DIMENSIONS IVSd1.49 (0.7-1.1cm)LVDd4.59 (3.9-5.9cm) LVOT Diameter2.23 (1.8-2.4cm)PWd0.99 (0.7-1.1cm) IVSs1.63 (0.8-1.2cm)LVDs2.82 (2.5-4.0cm) FS (%) 38.6 %PWs1.34 (0.8-1.2cm) M-Mode DIMENSIONS Left Atrium (MM)4.85 (2.5-4.0cm)IVSd1.03 (0.7-1.1cm) Aortic Root3.68 (2.2-3.7cm)LVDd6.18 (4.0-5.6cm) Aortic Cusp Exc.0.88 (1.5-2.0cm)PWd1.29 (0.7-1.1cm) IVSs1.25 cmFS (%) 45 % LVDs3.42 (2.0-3.8cm)PWs1.58 cm Aortic Valve AoV Peak Hanfibsu632.8cm/sAoV VTI42.9cmAO Peak GR.38mmHg LVOT Peak Cxjevszz47.1cm/Chas Mean GR.20mmHgAVA (VMAX)0.51cm2 Mitral Valve E/A ratio0.0 TDI E/Lateral E'0.0E/Medial E'0.0 Tricuspid Valve TR Peak [id number]/sRAP [id number] Peak Gr.41mmHg [id number] LEFT VENTRICLE The left ventricle is normal size. There is normal left ventricular wall thickness. The left ventricular function is normal. LVEF is 60-65%. Septal motion was abnormal due to RV preponderence. Other segments appeared to contract normally. Mitral inflow signal was poor in qulity. RIGHT VENTRICLE The right ventricle is moderately dilated. RV function appeared mildly depressed. ATRIA The left atrium size is normal. The right atrium size is normal. AORTIC VALVE The aortic valve is moderately to severely sclerotic. No aortic regurgitation is present. There is moderate valvular aortic stenosis. Calculated aortic valve area is 1.0 cm2 with maximum pressure gradient of 46 mmHg and mean pressure gradient of 25 mmHg. MITRAL VALVE The mitral valve is normal in structure. There is no evidence of mitral valve prolapse. There is no mitral valve stenosis. There is no mitral valve regurgitation noted. TRICUSPID VALVE The tricuspid valve is normal in structure. There is mild tricuspid regurgitation. Right ventricular systolic pressure is estimated at 54 mmHg. There is moderate-severe pulmonary hypertension. PULMONIC VALVE The pulmonic valve is not well visualized. There is no pulmonic valvular regurgitation. GREAT VESSELS The aortic root is normal in size. The IVC was not visualized. PERICARDIAL EFFUSION The pericardium appears normal. <Conclusion> This was a bedside examination. Pt was on a ventilator and could not cooperate in the study The images were poor in quality but they revealed following features: The left ventricle is normal size. Septal motion was abnormal due to RV preponderence. Other segments appeared to contract normally. The left ventricular function is normal. LVEF is 60-65%. The right ventricle is moderately dilated. RV function appeared mildly depressed. The aortic valve is moderately to severely sclerotic. There is moderate valvular aortic stenosis. There is moderate-severe pulmonary hypertension.
[2018-08-10] MEDS: Insulin Lispro (humaLOG) 100 Units/ml Inj SC SCH ×4 (08:00→21:34)
--- NOTE | 2018-08-10 09:11 | RAD ---
Date of service: 08/10/2018 HISTORY: intubated COMPARISON: 08/09/2018 FINDINGS: LUNGS: No definite infiltrate. Limited evaluation due to poor inspiratory effort. PLEURA: Moderate left pleural effusion. No right pleural effusion. No pneumothorax. CARDIOVASCULAR: No aortic atherosclerotic calcification present. Normal cardiac size. No congestive change. ET tube and NG tube unchanged. OSSEOUS STRUCTURES: No significant abnormalities. VISUALIZED UPPER ABDOMEN: Normal. OTHER FINDINGS: None. IMPRESSION: No acute infiltrate. Left pleural effusion. Limited examination. Lines and tubes unchanged.
[2018-08-10] MEDS: Insulin Detemir 100 Units/ml Inj SC SCH (09:28)
[2018-08-10] MEDS: Azithromycin 500 MG in Sodium Chloride 0.9% 250 ML IVPB SCH (09:30)
--- NOTE | 2018-08-10 09:33 | CP.PCM.PN ---
Subjective - Date & Time of Evaluation Date of Evaluation: 08/10/18 Time of Evaluation: 08:40 - Subjective Subjective: the patient continues to be deeply comatose and totally ventilatory dependent. 24 hour EEG recording is under progress. He has a pulse oximetry reading of 98% while on 100% FiO2 with a PEEP of 8 mm H2 O. He has sinus rhythm at 84 bpm and a blood pressure of 104/70 mmHg without any pressors. His urine output his extremely scanty and his BUN/creatinine has rapidly increased. His echocardiogram shows preserved left ventricular systolic function with moderate aortic stenosis and is significantly enlarged right ventricle with pierre vated pulmonary artery systolic pressure. 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 The patient continues to be stable from cardiovascular point of view and no immediate intervention is recommended. Objective - Vital Signs/Intake and Output Vital Signs (last 24 hours): Temp Pulse Resp BP Pulse Ox 100 F H 93 H 25 H 87/54 L 92 L 08/10/18 04:00 08/10/18 06:00 08/10/18 06:00 08/10/18 06:00 08/10/18 06:00 Intake and Output: 08/10/18 08/10/18 06:59 18:59 Intake Total 2000 Output Total 50 Balance 1950 - Medications Medications: Current Medications Acetaminophen (Tylenol 650mg/20.3ml Solution Ud) 650 mg PO Q4 PRN PRN Reason: Temperature Last Admin: 08/09/18 21:47 Dose: 650 mg Albuterol/Ipratropium (Duoneb 3 Mg/0.5 Mg (3 Ml) Ud) 3 ml INH RQID [facility] Last Admin: 08/10/18 07:10 Dose: 3 ml Aspirin (Aspirin Supp) 300 mg [place] DAILY [facility] Piperacillin Sod/Tazobactam (Sod 3.375 gm/ Sodium Chloride) 100 mls @ 100 mls/hr IVPB Q6 [facility]; Protocol Last Admin: 08/10/18 03:27 Dose: 100 mls/hr Azithromycin 500 mg/ Sodium (Chloride) 250 mls @ 250 mls/hr IVPB DAILY [facility]; Protocol Last Admin: 08/09/18 10:46 Dose: 250 mls/hr Dextrose/Sodium Chloride (Dextrose 5%/0.45% Ns 1000 Ml) 1,000 mls @ 150 mls/hr IV .Q6H40M [facility] Stop: 08/11/18 06:35 Insulin Detemir (Levemir) 10 units SC Q12H [facility] Last Admin: 08/10/18 09:28 Dose: 10 units Insulin Human Lispro (Humalog) 0 units SC ACHS [facility]; Protocol Last Admin: 08/10/18 08:00 Dose: Not Given Pantoprazole Sodium (Protonix Inj) 40 mg IVP DAILY [facility] Last Admin: 08/10/18 09:29 Dose: 40 mg - Labs Labs: 08/10/18 04:30 08/10/18 04:30 PT 17.0 Seconds (9.8-13.1) H 08/08/18 07:50 INR 1.5 08/08/18 07:50 APTT 31.7 Seconds (25.6-37.1) 08/08/18 07:50
[2018-08-10 11:15] LABS: ABG ALLEN TEST YES; ARTERIAL BLOOD GAS HCO3 19.4 mmol/L (21-28); ARTERIAL BLOOD GAS O2 SAT 87.8 % (95-98); ARTERIAL BLOOD GAS PCO2 38 mm/Hg (35-45); ARTERIAL BLOOD GAS PH 7.31 (7.35-7.45); ARTERIAL BLOOD GAS PO2 52 mm/Hg (80-100); ARTERIAL BLOOD GAS TCO2 20.3 mmol/L (22-28)
--- NOTE | 2018-08-10 11:46 | CP.PCM.PN ---
Subjective - Date & Time of Evaluation Date of Evaluation: 08/10/18 Time of Evaluation: 11:44 - Subjective Subjective: GI Progress note- Dr. Fenton Patient seen and examined at bedside. Currently undergoing EEG monitoring. GCS 3T no sedation on PRVC. pupils 4mm and sluggish. Rectal tube in place with stool output. Liver enzymes trending down, likely to ischemic/shock liver. No signs of necrosis. Objective - Vital Signs/Intake and Output Vital Signs (last 24 hours): Temp Pulse Resp BP Pulse Ox 100 F H 93 H 25 H 87/54 L 92 L 08/10/18 04:00 08/10/18 06:00 08/10/18 06:00 08/10/18 06:00 08/10/18 06:00 Intake and Output: 08/10/18 08/10/18 06:59 18:59 Intake Total 2000 Output Total 50 Balance 1950 - Medications Medications: Current Medications Acetaminophen (Tylenol 650mg/20.3ml Solution Ud) 650 mg PO Q4 PRN PRN Reason: Temperature Last Admin: 08/09/18 21:47 Dose: 650 mg Albuterol/Ipratropium (Duoneb 3 Mg/0.5 Mg (3 Ml) Ud) 3 ml INH RQID [facility] Last Admin: 08/10/18 11:20 Dose: 3 ml Aspirin (Aspirin Supp) 300 mg [place] DAILY [facility] Piperacillin Sod/Tazobactam (Sod 3.375 gm/ Sodium Chloride) 100 mls @ 100 mls/hr IVPB Q6 [facility]; Protocol Last Admin: 08/10/18 10:58 Dose: 100 mls/hr Azithromycin 500 mg/ Sodium (Chloride) 250 mls @ 250 mls/hr IVPB DAILY [facility]; Protocol Last Admin: 08/10/18 09:30 Dose: 250 mls/hr Dextrose/Sodium Chloride (Dextrose 5%/0.45% Ns 1000 Ml) 1,000 mls @ 150 mls/hr IV .Q6H40M [facility] Stop: 08/11/18 06:35 Insulin Detemir (Levemir) 10 units SC Q12H [facility] Last Admin: 08/10/18 09:28 Dose: 10 units Insulin Human Lispro (Humalog) 0 units SC ACHS [facility]; Protocol Last Admin: 08/10/18 08:00 Dose: Not Given Pantoprazole Sodium (Protonix Inj) 40 mg IVP DAILY [facility] Last Admin: 08/10/18 09:29 Dose: 40 mg - Labs Labs: 08/10/18 04:30 08/10/18 04:30 PT 17.0 Seconds (9.8-13.1) H 08/08/18 07:50 INR 1.5 08/08/18 07:50 APTT 31.7 Seconds (25.6-37.1) 08/08/18 07:50 - Constitutional Appears: Non-toxic, No Acute Distress - Head Exam Head Exam: ATRAUMATIC - Eye Exam Additional comments: 4mm sluggish b/l - ENT Exam ENT Exam: Mucous Membranes Moist - Respiratory Exam Respiratory Exam: absent: Respiratory Distress Additional comments: Intubated on PRVC - Cardiovascular Exam Cardiovascular Exam: +S1, +S2. absent: Bradycardia, Tachycardia - GI/Abdominal Exam GI & Abdominal Exam: Distended, Soft. absent: Firm, Guarding, Rigid, Tenderness, Mass, Rebound - Rectal Exam Additional comments: Rectal tube in place - Neurological Exam Neurological Exam: Alert, Awake Additional comments: GCS 3T - Skin Skin Exam: Intact, Warm Assessment and Plan - Assessment and Plan (Free Text) Assessment: 73M s/p cardiac arrest, elevated liver enzymes likely shock liver due to ischemia; LFTs trending down Plan: - will continue to monitor liver enzymes - no acute GI intervention indicated at this time - will continue to monitor - d/w Dr. Fenton GI attending PGY2
--- NOTE | 2018-08-10 12:12 | CP.PCM.CON ---
History of Present Illness - History of Present Illness History of Present Illness: this patient however is 73 years of age male completely ventilator dependent and no history available from the patient was called to see him for a rising BUN/creatinine and abnormal kidney function. Patient apparently admitted with the acute CVA and also status post cardiac arrest and noted that his BUN/creatinine and rising his past medical history related to diabetes mellitus hypertension and hyperlipidemia Again no history was available from the patient and the history was taken from the medical record and also I spoke to her son Pmhx: DMII, HTN, Hyperlipidemia, Depression Medications: Levemir 20 Units AM and 30 units PM, Metformin 1000 mg po bid, glimepiride 1 mg po bid, losartan 100 mg daily, simvastatin 40 mg daily, aspirin 81 mg daily, zoloft 25 mg daily. Review of Systems - Review of Systems Systems not reviewed;Unavailable: Respiratory Distress - Constitutional Constitutional: absent: Chills - EENT Eyes: absent: Exophthalmos Nose/Mouth/Throat: absent: Epistaxis - Cardiovascular Cardiovascular: Dyspnea, Edema, Leg Edema. absent: Acrocyanosis - Respiratory Respiratory: absent: Hemoptysis - Gastrointestinal Gastrointestinal: Bloating. absent: Coffee Ground Emesis - Genitourinary Genitourinary: Nocturia - Musculoskeletal Additional comments: pt. is flat - Neurological Additional comments: unresponsive completely flat - Hematologic/Lymphatic Hematologic: absent: Easy Bleeding Past Patient History - Infectious Disease Hx of Infectious Diseases: None - Past Medical History & Family History Past Medical History?: Yes - Past Social History Smoking Status: Unknown If Ever Smoked - CARDIAC Hx Cardiac Disorders: Yes - ENDOCRINE/METABOLIC Hx Endocrine Disorders: Yes - PSYCHIATRIC Hx Substance Use: No - ANESTHESIA Hx Anesthesia: Yes Hx Anesthesia Reactions: No Hx Malignant Hyperthermia: No Has any member of the family had a problem w/ anesthesia?: No Meds Allergies/Adverse Reactions: Allergies Allergy/AdvReac Type Severity Reaction Status Date / Time No Known Allergies Allergy Verified 08/07/18 09:44 - Medications Medications: Current Medications Acetaminophen (Tylenol 650mg/20.3ml Solution Ud) 650 mg PO Q4 PRN PRN Reason: Temperature Last Admin: 08/09/18 21:47 Dose: 650 mg Albuterol/Ipratropium (Duoneb 3 Mg/0.5 Mg (3 Ml) Ud) 3 ml INH RQID PEDRO Last Admin: 08/10/18 11:20 Dose: 3 ml Aspirin (Aspirin Supp) 300 mg NV DAILY [facility] Piperacillin Sod/Tazobactam (Sod 3.375 gm/ Sodium Chloride) 100 mls @ 100 mls/hr IVPB Q6 [facility]; Protocol Last Admin: 08/10/18 10:58 Dose: 100 mls/hr Azithromycin 500 mg/ Sodium (Chloride) 250 mls @ 250 mls/hr IVPB DAILY [facility]; Protocol Last Admin: 08/10/18 09:30 Dose: 250 mls/hr Dextrose/Sodium Chloride (Dextrose 5%/0.45% Ns 1000 Ml) 1,000 mls @ 150 mls/hr IV .Q6H40M [facility] Stop: 08/11/18 06:35 Insulin Detemir (Levemir) 10 units SC Q12H PEDRO Last Admin: 08/10/18 09:28 Dose: 10 units Insulin Human Lispro (Humalog) 0 units SC ACHS [facility]; Protocol Last Admin: 08/10/18 08:00 Dose: Not Given Pantoprazole Sodium (Protonix Inj) 40 mg IVP DAILY [facility] Last Admin: 08/10/18 09:29 Dose: 40 mg Physical Exam - Constitutional Appears: No Acute Distress - Eye Exam Eye Exam: Conjunctival injection - ENT Exam ENT Exam: Mucous Membranes Moist - Neck Exam Neck exam: Negative for: Lymphadenopathy - Respiratory Exam Respiratory Exam: Rhonchi - Cardiovascular Exam Cardiovascular Exam: absent: Gallop, JVD, Rubs - GI/Abdominal Exam GI & Abdominal Exam: Distended, Normal Bowel Sounds - Extremities Exam Extremities exam: Negative for: calf tenderness - Back Exam Back exam: absent: CVA tenderness (L), CVA tenderness (R) - Neurological Exam Neurological exam: Altered - Psychiatric Exam Psychiatric exam: Flat Affect Results - Vital Signs Recent Vital Signs: Last Vital Signs Temp 100 F H 08/10/18 04:00 Pulse 93 H 08/10/18 06:00 Resp 25 H 08/10/18 06:00 BP 87/54 L 08/10/18 06:00 Pulse Ox 92 L 08/10/18 06:00 - Labs Result Diagrams: 08/10/18 04:30 08/10/18 04:30 Labs: Laboratory Results - last 24 hr 08/09/18 08/09/18 08/10/18 16:20 21:31 04:07 WBC RBC Hgb Hct MCV MCH MCHC RDW Plt Count pCO2 pO2 HCO3 ABG pH ABG Total CO2 ABG O2 Saturation ABG O2 Content ABG Base Excess ABG Hemoglobin ABG Carboxyhemoglobin POC ABG HHb (Measured) ABG Methemoglobin ABG O2 Capacity Jose Test ABG Potassium A-a O2 Difference Hgb O2 Saturation Glucose Lactate Vent Mode Mechanical Rate FiO2 Tidal Volume PEEP Blood Gas Comments Crit Value Called To Crit Value Called By Crit Value Read Back Blood Gas Notified Time Sodium Potassium Chloride Carbon Dioxide Anion Gap BUN Creatinine Est GFR ( Amer) Est GFR (Non-Af Amer) POC Glucose (mg/dL) 230 H 205 H 217 H Random Glucose Calcium Phosphorus Magnesium Total Bilirubin AST ALT Alkaline Phosphatase Ammonia Total Protein Albumin Globulin Albumin/Globulin Ratio TSH 3rd Generation Arterial Blood Potassium 08/10/18 08/10/18 08/10/18 04:27 04:30 04:30 WBC 15.2 H RBC 4.88 Hgb 12.7 Hct 41.1 MCV 84.1 MCH 26.0 L MCHC 31.0 L RDW 16.9 H Plt Count 214 pCO2 41 pO2 48 L HCO3 22.3 ABG pH 7.35 ABG Total CO2 23.9 ABG O2 Saturation 85.2 L ABG O2 Content 15.3 ABG Base Excess -2.9 L ABG Hemoglobin 13.1 ABG Carboxyhemoglobin 1.5 POC ABG HHb (Measured) 14.4 H ABG Methemoglobin 1.1 ABG O2 Capacity 18.0 Jose Test Yes ABG Potassium A-a O2 Difference 614.0 Hgb O2 Saturation 83.0 L Glucose Lactate Vent Mode A/c Mechanical Rate 20 FiO2 100.0 Tidal Volume 450 PEEP 8 Blood Gas Comments Crit Value Called To Crit Value Called By Crit Value Read Back Blood Gas Notified Time Sodium 148 Potassium 5.0 Chloride 112 H Carbon Dioxide 24 Anion Gap 17 BUN 70 H Creatinine 4.0 H Est GFR ( Amer) 18 Est GFR (Non-Af Amer) 15 POC Glucose (mg/dL) Random Glucose 198 H Calcium 7.1 L Phosphorus 4.1 Magnesium 1.9 Total Bilirubin 1.6 H AST 1621 H ALT 2975 H Alkaline Phosphatase 137 H Ammonia Total Protein 5.7 L Albumin 2.6 L Globulin 3.1 Albumin/Globulin Ratio 0.9 L TSH 3rd Generation 1.29 Arterial Blood Potassium 08/10/18 08/10/18 04:30 10:54 WBC RBC Hgb Hct MCV MCH MCHC RDW Plt Count pCO2 38 pO2 52 L HCO3 19.4 L ABG pH 7.31 L ABG Total CO2 20.3 L ABG O2 Saturation 87.8 L ABG O2 Content ABG Base Excess -6.6 L ABG Hemoglobin ABG Carboxyhemoglobin POC ABG HHb (Measured) ABG Methemoglobin ABG O2 Capacity Jose Test Yes ABG Potassium 5.8 H A-a O2 Difference 614.0 Hgb O2 Saturation Glucose 220 H Lactate 4.5 H* Vent Mode Prvc/ac Mechanical Rate 22 FiO2 100.0 Tidal Volume 400 PEEP 10 Blood Gas Comments Lac=4.5 Crit Value Called To jw Eng Crit Value Called By 22 Crit Value Read Back Y Blood Gas Notified Time 1114 Sodium 148.0 Potassium Chloride 114.0 H Carbon Dioxide Anion Gap BUN Creatinine Est GFR ( Amer) Est GFR (Non-Af Amer) POC Glucose (mg/dL) Random Glucose Calcium Phosphorus Magnesium Total Bilirubin AST ALT Alkaline Phosphatase Ammonia 17 D Total Protein Albumin Globulin Albumin/Globulin Ratio TSH 3rd Generation Arterial Blood Potassium 5.8 H Assessment & Plan - Assessment and Plan (Free Text) Assessment: acute kidney failure/acute kidney injury Related to multifactorial perhaps cardiac arrest with sustained hypotension. Respiratory failure Comatose CVA Status post cardiac arrest Hypotension on multiple vasopressors leukocytosis Recommendation if kidney function is not improving by tomorrow we will proceed with hemodialysis. I spoke with his son for consent is come in this afternoon to make a decision Continue vasopressor Antibiotics as per renal dose Spot urine for sodium osmolality and creatinine Ventilator management
--- NOTE | 2018-08-10 15:09 | CP.CCUPN ---
CCU Subjective - Physician Review Subjective (Free Text): 08/10/18 14:54 The patient was Seen and examined by me at the bedside during ICU round, Medical records reviewed and Management issues were discussed and formulated with the house staff. Events reviewed 73 Years old Male with history of HTN, Hypercholesterolemia, DM and depression Who was admitted with altered mental status and CVA According to EMS, Pt lives alone, neighbours and superintendent service checked on Pt and he called 911 because Pt appeared to be "not himself." 08/07 he was [facility] telemetry for Altered mental status likely secondary to CVA Transferred to ICU 08/08 s/p cardiac arrest and resuscitations on the floor with ROSC in about 15 minutes Patient currently on ventilator, no response to verbal stimuli No neurological improvement Pt on 24H EEG Afebrile, NSR on the monitor Saturations remains 88-90 on Fio2 of 100%, PEEP of 10 (up from 8) This morning labs revealed persistent Leucocytosis, worsening renal function BUN/Cr up to 70/4.0 <<-- 55/2.5 Seen by renal, possib;e HD if no improvement of renal function, If son agrees Initial Head CT scan IMPRESSION: Suspect acute/subacute infarct right posterior parasagittal parietal lobe along the watershed zone of the right [employer]/posterior MCA territory. Mild chronic periventricular white matter ischemic changes with a few scattered chronic appearing bilateral basal nuclei lacunar type infarcts. No acute intracranial hemorrhage. Moderate central volume loss. CXR: Limited examination with image captured at low pulmonary volumes. Bilateral basilar atelectasis or infiltrate. Left pleural effusion in question. No pulmonary vascular congestion. Cardiac silhouette stable. Critical Care Time Spent (in minutes): 34 CCU Objective - Vital Signs / Intake & Output Vital Signs (Last 4 hours): Vital Signs Temp Pulse Resp BP Pulse Ox 08/10/18 14:00 103 H 18 122/72 96 08/10/18 12:00 100 F H 104 H 26 H 101/65 96 Intake and Output (Last 8hrs): Intake & Output 08/09/18 08/10/18 08/10/18 22:59 06:59 14:59 Intake Total 2400 1450 1100 Output Total 130 50 5 Balance 2270 1400 1095 Weight 249 lb Intake: IV 1950 1350 750 Intake, Piggyback 350 100 350 Oral 0 0 Tube Feeding 0 Free Water Flush 100 Output: Urine 30 50 5 Urethral (Phipps) 30 50 5 Stool 100 Other: # Bowel Movements 50 - Physical Exam Head: Positive for: Atraumatic, Normocephalic Pupils: Positive for: Non-Reactive Conjunctiva: Positive for: Normal Mouth: Positive for: Moist Mucous Membranes Nose (External): Positive for: Atraumatic Neck: Positive for: Normal Range of Motion Respiratory/Chest: Positive for: Rhonchi Cardiovascular: Positive for: Regular Rate and Rhythm Abdomen: Positive for: Normal Bowel Sounds Upper Extremity: Positive for: Normal Inspection Lower Extremity: Positive for: Normal Inspection Neurological: Positive for: Other (on ventilator, no response to verbal stimuli) - Medications Active Medications: Active Medications Generic Name Dose Route Start Last Admin Trade Name Freq PRN Reason Stop Dose Admin Acetaminophen 650 mg 08/08/18 23:25 08/09/18 21:47 Tylenol 650mg/20.3ml Solution Ud PO 650 mg Q4 PRN Administration Temperature Albuterol/Ipratropium 3 ml 08/07/18 16:00 08/10/18 11:20 Duoneb 3 Mg/0.5 Mg (3 Ml) Ud INH 3 ml RQID PEDRO Administration Aspirin 300 mg 08/10/18 09:00 Aspirin Supp PA DAILY PEDRO Piperacillin Sod/Tazobactam 100 mls @ 100 mls/hr 08/07/18 16:00 08/10/18 10:58 Sod 3.375 gm/ Sodium Chloride IVPB 100 mls/hr Q6 PEDRO Administration Protocol Azithromycin 500 mg/ Sodium 250 mls @ 250 mls/hr 08/08/18 09:00 08/10/18 09:30 Chloride IVPB 250 mls/hr DAILY PEDRO Administration Protocol Dextrose/Sodium Chloride 1,000 mls @ 150 mls/hr 08/10/18 06:45 Dextrose 5%/0.45% Ns 1000 Ml IV 08/11/18 06:35 .[id number] [facility] Insulin Detemir 10 units 08/09/18 22:00 08/10/18 09:28 Levemir SC 10 units Q12H PEDRO Administration Insulin Human Lispro 0 units 08/09/18 16:30 08/10/18 12:26 Humalog SC Not Given ACHS [facility] Protocol Pantoprazole Sodium 40 mg 08/07/18 14:15 08/10/18 09:29 Protonix Inj IVP 40 mg DAILY PEDRO Administration - Patient Studies Lab Studies: Microbiology Studies 08/07/18 13:52 Blood Culture - Preliminary Blood-Venous NO GROWTH AFTER 3 DAYS 08/08/18 14:25 Gram Stain - Final Trachasp Sputum Culture - Final NORMAL ORAL DEBBY 08/08/18 14:25 MRSA Culture (Admit) - Final Naris MRSA NOT DETECTED 08/08/18 17:00 Urine Culture - Final Urine,Phipps No Growth (<1,000 CFU/ML) 08/07/18 17:37 Blood Culture - Preliminary Blood-Venous NO GROWTH AFTER 48 HOURS Lab Studies 08/10/18 08/10/18 08/10/18 Range/Units 12:23 10:54 04:30 WBC (4.8-10.8) K/uL RBC (4.40-5.90) Mil/uL Hgb (12.0-18.0) g/dL Hct (35.0-51.0) % MCV (80.0-94.0) fl MCH (27.0-31.0) pg MCHC (33.0-37.0) g/dL RDW (11.5-14.5) % Plt Count (130-400) K/uL pCO2 38 (35-45) mm/Hg pO2 52 L (80-100) mm/Hg HCO3 19.4 L (21-28) mmol/L ABG pH 7.31 L (7.35-7.45) ABG Total CO2 20.3 L (22-28) mmol/L ABG O2 Saturation 87.8 L (95-98) % ABG O2 Content (15-23) ML/dL ABG Base Excess -6.6 L (-2.0-3.0) mmol/L ABG Hemoglobin (11.7-17.4) g/dL ABG Carboxyhemoglobin (0.5-1.5) % POC ABG HHb (Measured) (0.0-5.0) % ABG Methemoglobin (0.0-3.0) % ABG O2 Capacity (16-24) mL/dL Jose Test Yes ABG Potassium 5.8 H (3.6-5.2) mmol/L A-a O2 Difference 614.0 mm/Hg Hgb O2 Saturation (95.0-98.0) % Glucose 220 H (75-110) mg/dL Lactate 4.5 H* (0.7-2.1) mmol/L Vent Mode Prvc/ac Mechanical Rate 22 FiO2 100.0 % Tidal Volume 400 PEEP 10 Blood Gas Comments Lac=4.5 Crit Value Called To jw Eng Crit Value Called By 22 Crit Value Read Back Y Blood Gas Notified Time 1114 Sodium 148.0 (132-148) mmol/l Potassium (3.6-5.0) MMOL/L Chloride 114.0 H (98-107) mmol/L Carbon Dioxide (22-30) mmol/L Anion Gap (10-20) BUN (9-20) mg/dl Creatinine (0.8-1.5) mg/dl Est GFR ( Amer) Est GFR (Non-Af Amer) POC Glucose (mg/dL) 186 H (65-110) mg/dL Random Glucose (75-110) mg/dL Hemoglobin A1c (4.2-6.5) % Calcium (8.4-10.2) mg/dL Phosphorus (2.5-4.5) mg/dl Magnesium (1.6-2.3) MG/DL Total Bilirubin (0.2-1.3) mg/dl AST (17-59) U/L ALT (21-72) U/L Alkaline Phosphatase (38-126) U/L Ammonia 17 D (16-60) umo/L Total Protein (6.3-8.2) G/DL Albumin (3.5-5.0) g/dL Globulin (2.2-3.9) gm/dL Albumin/Globulin Ratio (1.0-2.1) TSH 3rd Generation (0.46-4.68) mIU/ML Arterial Blood Potassium 5.8 H (3.6-5.2) mmol/L 08/10/18 08/10/18 08/10/18 Range/Units 04:30 04:30 04:30 WBC 15.2 H (4.8-10.8) K/uL RBC 4.88 (4.40-5.90) Mil/uL Hgb 12.7 (12.0-18.0) g/dL Hct 41.1 (35.0-51.0) % MCV 84.1 (80.0-94.0) fl MCH 26.0 L (27.0-31.0) pg MCHC 31.0 L (33.0-37.0) g/dL RDW 16.9 H (11.5-14.5) % Plt Count 214 (130-400) K/uL pCO2 (35-45) mm/Hg pO2 (80-100) mm/Hg HCO3 (21-28) mmol/L ABG pH (7.35-7.45) ABG Total CO2 (22-28) mmol/L ABG O2 Saturation (95-98) % ABG O2 Content (15-23) ML/dL ABG Base Excess (-2.0-3.0) mmol/L ABG Hemoglobin (11.7-17.4) g/dL ABG Carboxyhemoglobin (0.5-1.5) % POC ABG HHb (Measured) (0.0-5.0) % ABG Methemoglobin (0.0-3.0) % ABG O2 Capacity (16-24) mL/dL Jose Test ABG Potassium (3.6-5.2) mmol/L A-a O2 Difference mm/Hg Hgb O2 Saturation (95.0-98.0) % Glucose (75-110) mg/dL Lactate (0.7-2.1) mmol/L Vent Mode Mechanical Rate FiO2 % Tidal Volume PEEP Blood Gas Comments Crit Value Called To Crit Value Called By Crit Value Read Back Blood Gas Notified Time Sodium 148 (132-148) mmol/l Potassium 5.0 (3.6-5.0) MMOL/L Chloride 112 H (98-107) mmol/L Carbon Dioxide 24 (22-30) mmol/L Anion Gap 17 (10-20) BUN 70 H (9-20) mg/dl Creatinine 4.0 H (0.8-1.5) mg/dl Est GFR ( Amer) 18 Est GFR (Non-Af Amer) 15 POC Glucose (mg/dL) (65-110) mg/dL Random Glucose 198 H (75-110) mg/dL Hemoglobin A1c 9.5 H (4.2-6.5) % Calcium 7.1 L (8.4-10.2) mg/dL Phosphorus 4.1 (2.5-4.5) mg/dl Magnesium 1.9 (1.6-2.3) MG/DL Total Bilirubin 1.6 H (0.2-1.3) mg/dl AST 1621 H (17-59) U/L ALT 2975 H (21-72) U/L Alkaline Phosphatase 137 H (38-126) U/L Ammonia (16-60) umo/L Total Protein 5.7 L (6.3-8.2) G/DL Albumin 2.6 L (3.5-5.0) g/dL Globulin 3.1 (2.2-3.9) gm/dL Albumin/Globulin Ratio 0.9 L (1.0-2.1) TSH 3rd Generation 1.29 (0.46-4.68) mIU/ML Arterial Blood Potassium (3.6-5.2) mmol/L 08/10/18 08/10/18 08/09/18 Range/Units 04:27 04:07 21:31 WBC (4.8-10.8) K/uL RBC (4.40-5.90) Mil/uL Hgb (12.0-18.0) g/dL Hct (35.0-51.0) % MCV (80.0-94.0) fl MCH (27.0-31.0) pg MCHC (33.0-37.0) g/dL RDW (11.5-14.5) % Plt Count (130-400) K/uL pCO2 41 (35-45) mm/Hg pO2 48 L (80-100) mm/Hg HCO3 22.3 (21-28) mmol/L ABG pH 7.35 (7.35-7.45) ABG Total CO2 23.9 (22-28) mmol/L ABG O2 Saturation 85.2 L (95-98) % ABG O2 Content 15.3 (15-23) ML/dL ABG Base Excess -2.9 L (-2.0-3.0) mmol/L ABG Hemoglobin 13.1 (11.7-17.4) g/dL ABG Carboxyhemoglobin 1.5 (0.5-1.5) % POC ABG HHb (Measured) 14.4 H (0.0-5.0) % ABG Methemoglobin 1.1 (0.0-3.0) % ABG O2 Capacity 18.0 (16-24) mL/dL Jose Test Yes ABG Potassium (3.6-5.2) mmol/L A-a O2 Difference 614.0 mm/Hg Hgb O2 Saturation 83.0 L (95.0-98.0) % Glucose (75-110) mg/dL Lactate (0.7-2.1) mmol/L Vent Mode A/c Mechanical Rate 20 FiO2 100.0 % Tidal Volume 450 PEEP 8 Blood Gas Comments Crit Value Called To Crit Value Called By Crit Value Read Back Blood Gas Notified Time Sodium (132-148) mmol/l Potassium (3.6-5.0) MMOL/L Chloride (98-107) mmol/L Carbon Dioxide (22-30) mmol/L Anion Gap (10-20) BUN (9-20) mg/dl Creatinine (0.8-1.5) mg/dl Est GFR ( Amer) Est GFR (Non-Af Amer) POC Glucose (mg/dL) 217 H 205 H (65-110) mg/dL Random Glucose (75-110) mg/dL Hemoglobin A1c (4.2-6.5) % Calcium (8.4-10.2) mg/dL Phosphorus (2.5-4.5) mg/dl Magnesium (1.6-2.3) MG/DL Total Bilirubin (0.2-1.3) mg/dl AST (17-59) U/L ALT (21-72) U/L Alkaline Phosphatase (38-126) U/L Ammonia (16-60) umo/L Total Protein (6.3-8.2) G/DL Albumin (3.5-5.0) g/dL Globulin (2.2-3.9) gm/dL Albumin/Globulin Ratio (1.0-2.1) TSH 3rd Generation (0.46-4.68) mIU/ML Arterial Blood Potassium (3.6-5.2) mmol/L 08/09/18 Range/Units 16:20 WBC (4.8-10.8) K/uL RBC (4.40-5.90) Mil/uL Hgb (12.0-18.0) g/dL Hct (35.0-51.0) % MCV (80.0-94.0) fl MCH (27.0-31.0) pg MCHC (33.0-37.0) g/dL RDW (11.5-14.5) % Plt Count (130-400) K/uL pCO2 (35-45) mm/Hg pO2 (80-100) mm/Hg HCO3 (21-28) mmol/L ABG pH (7.35-7.45) ABG Total CO2 (22-28) mmol/L ABG O2 Saturation (95-98) % ABG O2 Content (15-23) ML/dL ABG Base Excess (-2.0-3.0) mmol/L ABG Hemoglobin (11.7-17.4) g/dL ABG Carboxyhemoglobin (0.5-1.5) % POC ABG HHb (Measured) (0.0-5.0) % ABG Methemoglobin (0.0-3.0) % ABG O2 Capacity (16-24) mL/dL Jose Test ABG Potassium (3.6-5.2) mmol/L A-a O2 Difference mm/Hg Hgb O2 Saturation (95.0-98.0) % Glucose (75-110) mg/dL Lactate (0.7-2.1) mmol/L Vent Mode Mechanical Rate FiO2 % Tidal Volume PEEP Blood Gas Comments Crit Value Called To Crit Value Called By Crit Value Read Back Blood Gas Notified Time Sodium (132-148) mmol/l Potassium (3.6-5.0) MMOL/L Chloride (98-107) mmol/L Carbon Dioxide (22-30) mmol/L Anion Gap (10-20) BUN (9-20) mg/dl Creatinine (0.8-1.5) mg/dl Est GFR ( Amer) Est GFR (Non-Af Amer) POC Glucose (mg/dL) 230 H (65-110) mg/dL Random Glucose (75-110) mg/dL Hemoglobin A1c (4.2-6.5) % Calcium (8.4-10.2) mg/dL Phosphorus (2.5-4.5) mg/dl Magnesium (1.6-2.3) MG/DL Total Bilirubin (0.2-1.3) mg/dl AST (17-59) U/L ALT (21-72) U/L Alkaline Phosphatase (38-126) U/L Ammonia (16-60) umo/L Total Protein (6.3-8.2) G/DL Albumin (3.5-5.0) g/dL Globulin (2.2-3.9) gm/dL Albumin/Globulin Ratio (1.0-2.1) TSH 3rd Generation (0.46-4.68) mIU/ML Arterial Blood Potassium (3.6-5.2) mmol/L Laboratory Results - last 24 hr 08/09/18 08/09/18 08/10/18 16:20 21:31 04:07 WBC RBC Hgb Hct MCV MCH MCHC RDW Plt Count pCO2 pO2 HCO3 ABG pH ABG Total CO2 ABG O2 Saturation ABG O2 Content ABG Base Excess ABG Hemoglobin ABG Carboxyhemoglobin POC ABG HHb (Measured) ABG Methemoglobin ABG O2 Capacity Jose Test ABG Potassium A-a O2 Difference Hgb O2 Saturation Glucose Lactate Vent Mode Mechanical Rate FiO2 Tidal Volume PEEP Blood Gas Comments Crit Value Called To Crit Value Called By Crit Value Read Back Blood Gas Notified Time Sodium Potassium Chloride Carbon Dioxide Anion Gap BUN Creatinine Est GFR ( Amer) Est GFR (Non-Af Amer) POC Glucose (mg/dL) 230 H 205 H 217 H Random Glucose Hemoglobin A1c Calcium Phosphorus Magnesium Total Bilirubin AST ALT Alkaline Phosphatase Ammonia Total Protein Albumin Globulin Albumin/Globulin Ratio TSH 3rd Generation Arterial Blood Potassium 08/10/18 08/10/18 08/10/18 04:27 04:30 04:30 WBC 15.2 H RBC 4.88 Hgb 12.7 Hct 41.1 MCV 84.1 MCH 26.0 L MCHC 31.0 L RDW 16.9 H Plt Count 214 pCO2 41 pO2 48 L HCO3 22.3 ABG pH 7.35 ABG Total CO2 23.9 ABG O2 Saturation 85.2 L ABG O2 Content 15.3 ABG Base Excess -2.9 L ABG Hemoglobin 13.1 ABG Carboxyhemoglobin 1.5 POC ABG HHb (Measured) 14.4 H ABG Methemoglobin 1.1 ABG O2 Capacity 18.0 Jose Test Yes ABG Potassium A-a O2 Difference 614.0 Hgb O2 Saturation 83.0 L Glucose Lactate Vent Mode A/c Mechanical Rate 20 FiO2 100.0 Tidal Volume 450 PEEP 8 Blood Gas Comments Crit Value Called To Crit Value Called By Crit Value Read Back Blood Gas Notified Time Sodium 148 Potassium 5.0 Chloride 112 H Carbon Dioxide 24 Anion Gap 17 BUN 70 H Creatinine 4.0 H Est GFR ( Amer) 18 Est GFR (Non-Af Amer) 15 POC Glucose (mg/dL) Random Glucose 198 H Hemoglobin A1c Calcium 7.1 L Phosphorus 4.1 Magnesium 1.9 Total Bilirubin 1.6 H AST 1621 H ALT 2975 H Alkaline Phosphatase 137 H Ammonia Total Protein 5.7 L Albumin 2.6 L Globulin 3.1 Albumin/Globulin Ratio 0.9 L TSH 3rd Generation 1.29 Arterial Blood Potassium 08/10/18 08/10/18 08/10/18 04:30 04:30 10:54 WBC RBC Hgb Hct MCV MCH MCHC RDW Plt Count pCO2 38 pO2 52 L HCO3 19.4 L ABG pH 7.31 L ABG Total CO2 20.3 L ABG O2 Saturation 87.8 L ABG O2 Content ABG Base Excess -6.6 L ABG Hemoglobin ABG Carboxyhemoglobin POC ABG HHb (Measured) ABG Methemoglobin ABG O2 Capacity Jose Test Yes ABG Potassium 5.8 H A-a O2 Difference 614.0 Hgb O2 Saturation Glucose 220 H Lactate 4.5 H* Vent Mode Prvc/ac Mechanical Rate 22 FiO2 100.0 Tidal Volume 400 PEEP 10 Blood Gas Comments Lac=4.5 Crit Value Called To jw Eng Crit Value Called By 22 Crit Value Read Back Y Blood Gas Notified Time 1114 Sodium 148.0 Potassium Chloride 114.0 H Carbon Dioxide Anion Gap BUN Creatinine Est GFR ( Amer) Est GFR (Non-Af Amer) POC Glucose (mg/dL) Random Glucose Hemoglobin A1c 9.5 H Calcium Phosphorus Magnesium Total Bilirubin AST ALT Alkaline Phosphatase Ammonia 17 D Total Protein Albumin Globulin Albumin/Globulin Ratio TSH 3rd Generation Arterial Blood Potassium 5.8 H 08/10/18 12:23 WBC RBC Hgb Hct MCV MCH MCHC RDW Plt Count pCO2 pO2 HCO3 ABG pH ABG Total CO2 ABG O2 Saturation ABG O2 Content ABG Base Excess ABG Hemoglobin ABG Carboxyhemoglobin POC ABG HHb (Measured) ABG Methemoglobin ABG O2 Capacity Jose Test ABG Potassium A-a O2 Difference Hgb O2 Saturation Glucose Lactate Vent Mode Mechanical Rate FiO2 Tidal Volume PEEP Blood Gas Comments Crit Value Called To Crit Value Called By Crit Value Read Back Blood Gas Notified Time Sodium Potassium Chloride Carbon Dioxide Anion Gap BUN Creatinine Est GFR ( Amer) Est GFR (Non-Af Amer) POC Glucose (mg/dL) 186 H Random Glucose Hemoglobin A1c Calcium Phosphorus Magnesium Total Bilirubin AST ALT Alkaline Phosphatase Ammonia Total Protein Albumin Globulin Albumin/Globulin Ratio TSH 3rd Generation Arterial Blood Potassium Fingerstick Blood Sugar Results: 186 Critical Care Progress Note - Nutrition Nutrition: Nutrition Category Date Time Status NPO Diet [DIET] Diets 08/07/18 Dinner Active Assessment/Plan (1) Cardiac arrest Current Visit: Yes Status: Acute Priority: High Comment: Patient S/P cardiac arrest 08/08 7:30AM was successfully resuscitated and transferred to ICU, no neurological improvements Neurology Consult appreciated, 24H EEG, frequent neuro checks, Echocardiogram, Maintain BP and glycemic control (2) Pleural effusion associated with pulmonary infection Current Visit: Yes Status: Acute Priority: High Comment: Blood C/S negative Piperacillin Sod/Tazobactam 3.375 gm IVPB Q6 Azithromycin 500 mg IVPB DAILY (3) Anoxic brain injury Current Visit: Yes Status: Acute Priority: High (4) CVA (cerebral vascular accident) Current Visit: Yes Status: Acute Priority: High (5) RIVER (acute kidney injury) Current Visit: Yes Status: Acute Priority: High Comment: Acute renal injury due to circulatory failure, worsening renal function BUN/Cr up to 70/4.0 <<-- 55/2.5 Renally adjust medication dose IVF hydration Seen by renal, possib;e HD if no improvement of renal function, If son agrees (6) LFT elevation Current Visit: Yes Status: Acute Priority: High Comment: LFT strending down Possible ischemic hepatitis, patient was found by superintendent service for his altered mental status, could be hypotensive too, Also was on Lipitor (on hold ) (7) Pneumonia Current Visit: Yes Status: Acute Priority: High
[2018-08-10] MEDS: Dextrose 5%/0.45% NS 1,000 ML IV SCH ×3 (15:20→21:41)
[2018-08-10] MEDS: Acetaminophen 650mg/20.3ml solution UD PO PRN ×2 (15:23→19:49)
--- NOTE | 2018-08-10 16:03 | CP.PCM.PN ---
<Rivka German - Last Filed: 08/10/18 16:42> Subjective - Date & Time of Evaluation Date of Evaluation: 08/10/18 Time of Evaluation: 16:00 - Subjective Subjective: Neurology Consultation Follow-Up Note: Mr. Giang was evaluated by myself and Dr. Purvis this afternoon in the ICU. He is post-cardiac arrest and ROSC and is currently being managed in the ICU. He remains intubated and is without sedation. ROS unobtainable due to patient's condition. Events discussed with nursing staff and with patient's son at bedside. Objective - Vital Signs/Intake and Output Vital Signs (last 24 hours): Temp Pulse Resp BP Pulse Ox 101 F H 103 H 18 122/72 96 08/10/18 15:23 08/10/18 14:00 08/10/18 14:00 08/10/18 14:00 08/10/18 14:00 Intake and Output: 08/10/18 08/10/18 06:59 18:59 Intake Total 2000 1100 Output Total 50 5 Balance 1950 1095 - Medications Medications: Current Medications Acetaminophen (Tylenol 650mg/20.3ml Solution Ud) 650 mg PO Q4 PRN PRN Reason: Temperature Last Admin: 08/10/18 15:23 Dose: 650 mg Albuterol/Ipratropium (Duoneb 3 Mg/0.5 Mg (3 Ml) Ud) 3 ml INH RQID PEDRO Last Admin: 08/10/18 15:35 Dose: 3 ml Aspirin (Aspirin) 325 mg PO DAILY PEDRO Last Admin: 08/10/18 15:24 Dose: 325 mg Piperacillin Sod/Tazobactam (Sod 3.375 gm/ Sodium Chloride) 100 mls @ 100 mls/hr IVPB Q6 PEDRO; Protocol Last Admin: 08/10/18 15:55 Dose: 100 mls/hr Azithromycin 500 mg/ Sodium (Chloride) 250 mls @ 250 mls/hr IVPB DAILY PEDRO; Protocol Last Admin: 08/10/18 09:30 Dose: 250 mls/hr Dextrose/Sodium Chloride (Dextrose 5%/0.45% Ns 1000 Ml) 1,000 mls @ 150 mls/hr IV .Q6H40M PEDRO Stop: 08/11/18 06:35 Last Admin: 08/10/18 15:38 Dose: 150 mls/hr Insulin Detemir (Levemir) 12 units SC Q12H PEDRO Insulin Human Lispro (Humalog) 0 units SC ACHS PEDRO; Protocol Last Admin: 08/10/18 12:26 Dose: Not Given Pantoprazole Sodium (Protonix Inj) 40 mg IVP DAILY [facility] Last Admin: 08/10/18 09:29 Dose: 40 mg - Labs Labs: 08/10/18 04:30 08/10/18 04:30 PT 17.0 Seconds (9.8-13.1) H 08/08/18 07:50 INR 1.5 08/08/18 07:50 APTT 31.7 Seconds (25.6-37.1) 08/08/18 07:50 - Constitutional Appears: Other (intubated) - Head Exam Head Exam: NORMAL INSPECTION - Eye Exam Eye Exam: Scleral icterus - ENT Exam ENT Exam: Mucous Membranes Moist - Respiratory Exam Additional comments: intubated - Neurological Exam Neurological Exam: absent: Awake, Oriented x3 Additional comments: Patient is responsive to deep sternal rub by eye opening, however, less than yesterday. No decerebrate and triple flexion noted today to the left and not withdrawing on the right. Pupils bilaterally are reactive yet reactive, + doll's eyes, + slow corneal reflexes bilaterally, is breathing over the ventilator, + slight gag reflex present but not as strong as yesterday. Unable to test strength to extremities as patient is intubated and unable to follow commands. Extremities fall to the stretcher when raised/against gravity. - Psychiatric Exam Additional comments: intubated - Skin Additional comments: slight jaundice noted Assessment and Plan (1) Anoxic brain injury Assessment & Plan: -24 hour EEG done and read as abnormal by Dr. Purvis (see addendum from neuro progress note 08/09/18). -Keppra and Acyclovir to be given for abnormal EEG. -We will continue to follow the patient while in the hospital. -Please notify neuro team of any acute changes in patient's condition. Patient seen with and case discussed with Dr. Purvis. Status: Acute (2) CVA (cerebral vascular accident) Assessment & Plan: Imaging: CT Head (08/07/18): Suspect acute/subacute infarct right posterior parasagittal parietal lobe along the watershed zone of the right [employer]/posterior MCA territory. Mild chronic periventricular white matter ischemic changes with a few scattered chronic appearing bilateral basal nuclei lacunar type infarcts. No acute intracranial hemorrhage. Moderate central volume loss. -Continue Aspirin 300 mg GA daily -Maintain BP within a normal range to avoid further watershed infarcts. -Repeat CT Head without contrast today to evaluate acute changes--ordered. -Notify neuro team of any acute changes in patient's condition. -We will continue to follow the patient while he is in the hospital. Patient seen and discussed with Dr. Purvis. Status: Acute (3) Seizure Assessment & Plan: -EEG is abnormal as read by Dr. Purvis--patient having PLEDS (see addendum by Dr. Purvis from neuro progress note on 08/09/18). 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 Purvis--will treat accordingly. -Keppra 1 gm IV x1 dose now, followed by Keppra 1 gm IV BID starting tomorrow morning. -Acyclovir 1 gm IV x1 dose now, followed by 800 mg IV BID starting tomorrow morning. -Labs reviewed with Dr. Purvis; we are aware of LFTs and BUN/Creat---we still recommend to treat with Keppra and Acyclovir considering patient's condition and the likelihood of HD starting tomorrow (per nephro's note). -Will start Propofol at 5 mcg and to titrate per protocol until tomorrow morning in order to allow the brain to rest and repeat another [address] Purvis discussed this with patient's son, who agrees with the plan. Status: Acute <Tori Purvis - Last Filed: 08/13/18 01:02> Objective - Vital Signs/Intake and Output Vital Signs (last 24 hours): Temp Pulse Resp BP Pulse Ox 100.2 F H 118 H 22 129/88 100 08/11/18 01:26 08/11/18 08:00 08/11/18 08:00 08/11/18 08:00 08/11/18 08:00 - Labs Labs: 08/11/18 04:30 08/11/18 04:30 PT 17.0 Seconds (9.8-13.1) H 08/08/18 07:50 INR 1.5 08/08/18 07:50 APTT 31.7 Seconds (25.6-37.1) 08/08/18 07:50 Assessment and Plan - Assessment and Plan (Free Text) Assessment: 73 yr old male who was having continuous seizures and is now being monitored with VEEG> Agree with afore mentioned assessment and plan. DR. purvis
[2018-08-10] MEDS ORDERED: levETIRAcetam 1,000 MG in Sodium Chloride 0.9% 100 ML IVPB ONE (16:13)
[2018-08-10] MEDS ORDERED: Propofol 10 mg/ml 1,000 MG/100 ML VIAL IV SCH (16:30)
--- NOTE | 2018-08-10 20:28 | PN ---
DATE: 08/10/2018 ENDOCRINOLOGY FOLLOWUP NOTE LOCATION: Room 422, ICU. SUBJECTIVE: This is a 73-year-old male with recent acute CVA who developed supervening acute respiratory failure, currently endotracheally intubated at this time and is now also being followed closely for metabolic management. His glycemic levels are fluctuating but improved, and the latest glucose levels have ranged from 186 to 198 mg/dL. His A1c is 9.5% which is elevated and indicative of suboptimal metabolic control of his diabetic condition even prior to admission. LABORATORY DATA: His chemistry showed a BUN of 70, sodium 148, potassium 5, chloride 112, CO2 of 24, glucose 198, and creatinine 4. His liver transaminases remain elevated, but have improved and the AST is 1621 and the ALT is 2975. His TSH is 1.29 as noted. 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 PLAN OF MANAGEMENT: We will modify once again his basal insulin and increase the Levemir to 12 units subcu every 12 hours at 10 a.m. and 10 p.m. daily as given. We will continue the modified correction scale with Humalog insulin as given. We will obtain serial chemistries and supplement accordingly as needed. We will follow. Courtney Pan MD
[2018-08-10] MEDS ORDERED: Insulin Detemir 100 Units/ml Inj SC SCH (22:00)
[2018-08-11] MEDS: Acetaminophen 650mg/20.3ml solution UD PO PRN (00:26)
[2018-08-11 03:34] VITALS: TEMP 100.2
[2018-08-11 03:58] LABS: ABG ALLEN TEST YES; ARTERIAL BLOOD GAS HCO3 15.6 mmol/L (21-28); ARTERIAL BLOOD GAS HEMOGLOBIN 13.5 g/dL (11.7-17.4); ARTERIAL BLOOD GAS O2 CAPACITY 18.4 mL/dL (16-24); ARTERIAL BLOOD GAS O2 CONTENT 14.6 ML/dL (15-23); ARTERIAL BLOOD GAS O2 SAT 79.2 % (95-98); ARTERIAL BLOOD GAS PCO2 47 mm/Hg (35-45); ARTERIAL BLOOD GAS PH 7.17 (7.35-7.45); ARTERIAL BLOOD GAS PO2 45 mm/Hg (80-100); ARTERIAL BLOOD GAS TCO2 18.5 mmol/L (22-28)
[2018-08-11] MEDS ORDERED: Sod Polystyrene Sulf 15 gm/60 ml Susp PO ONE (05:14)
[2018-08-11] MEDS ORDERED: Sodium Bicarbonate 8.4% 150 MEQ in Dextrose 5%/0.9% NS 1,000 ML IV SCH (05:15)
[2018-08-11 05:17] LABS: VENOUS BLOOD GAS BASE EXCESS -15.1 mmol/L (0.0-2.0); VENOUS BLOOD GAS PCO2 64 mmHg (40-60); VENOUS BLOOD GAS PO2 19 mm/Hg (30-55); VENOUS BLOOD PH 7.02 (7.32-7.43)
[2018-08-11 05:18] LABS: HEMOGLOBIN 12.8 g/dL (12.0-18.0); MEAN CELL VOLUME 86.5 fl (80.0-94.0); MEAN CORPUSCULAR HEMOGLOBIN 25.7 pg (27.0-31.0); MEAN CORPUSCULAR HGB CONC 29.7 g/dL (33.0-37.0); RBC 4.99 Mil/uL (4.40-5.90); RED CELL DISTRIBUTION WIDTH 17.8 % (11.5-14.5); WHITE BLOOD COUNT 15.6 K/uL (4.8-10.8)
--- NOTE | 2018-08-11 05:28 | CP.CCUPN ---
CCU Subjective - Physician Review Subjective (Free Text): 08/11/18 05:26 Code blue this AM. Patient became asystolic before code was called. ROSC after CPR and 2 of epi and bicarb push. Recent labs from this morning showed K of 5.8, pH of 7.17. Patient now on maximum dose levophed. Will start on Bicarb gtt to improve pH. Will give kayexalate x 1 as K is slowly rising; bicarb gtt may help somewhat with K excretion as well. 08/11/18 05:29 CCU Objective - Vital Signs / Intake & Output Vital Signs (Last 4 hours): Vital Signs Pulse Resp BP Pulse Ox 08/11/18 05:15 106 H 20 140/64 86 L 08/11/18 03:00 99 H 26 H 81/45 L 86 L 08/11/18 02:00 99 H 18 81/49 L 81 L Intake and Output (Last 8hrs): Intake & Output 08/10/18 08/10/18 08/11/18 14:59 22:59 06:59 Intake Total 1100 1318 1298 Output Total 5 Balance 1095 1318 1298 Intake: IV 750 800 920 Intake, Piggyback 350 358 108 Tube Feeding 100 270 Other 60 Output: Urine 5 Urethral (Phipps) 5 - Physical Exam Head: Positive for: Atraumatic, Normocephalic Pupils: Positive for: Non-Reactive Conjunctiva: Positive for: Normal Mouth: Positive for: Moist Mucous Membranes Nose (External): Positive for: Atraumatic Neck: Positive for: Normal Range of Motion Respiratory/Chest: Positive for: Rhonchi Cardiovascular: Positive for: Regular Rate and Rhythm Abdomen: Positive for: Normal Bowel Sounds Upper Extremity: Positive for: Normal Inspection Lower Extremity: Positive for: Normal Inspection Neurological: Positive for: Other (on ventilator, no response to verbal stimuli) - Medications Active Medications: Active Medications Generic Name Dose Route Start Last Admin Trade Name Freq PRN Reason Stop Dose Admin Acetaminophen 650 mg 08/08/18 23:25 08/11/18 00:26 Tylenol 650mg/20.3ml Solution Ud PO 650 mg Q4 PRN Administration Temperature Albuterol/Ipratropium 3 ml 08/07/18 16:00 08/10/18 19:33 Duoneb 3 Mg/0.5 Mg (3 Ml) Ud INH 3 ml RQID PEDRO Administration Aspirin 325 mg 08/10/18 15:13 08/10/18 15:24 Aspirin PO 325 mg DAILY PEDRO Administration Azithromycin 500 mg/ Sodium 250 mls @ 250 mls/hr 08/08/18 09:00 08/10/18 09:30 Chloride IVPB 250 mls/hr DAILY PEDRO Administration Protocol Levetiracetam 1,000 mg/ Sodium 110 mls @ 110 mls/hr 08/11/18 10:00 Chloride IVPB Q12 PEDRO Acyclovir 800 mg/ Sodium 250 mls @ 250 mls/hr 08/11/18 10:00 Chloride IVPB BID PEDRO Protocol Propofol 1,000 mg in 100 mls @ 3.388 mls/hr 08/10/18 16:30 08/10/18 16:43 Diprivan IV 08/11/18 16:22 5 mcg/kg/min .Q24H PEDRO 3.388 mls/hr Administration Protocol 5 MCG/KG/MIN Piperacillin Sod/Tazobactam 100 mls @ 100 mls/hr 08/10/18 17:00 08/11/18 00:17 Sod 2.25 gm/ Sodium Chloride IVPB 100 mls/hr Q8 [facility] Administration Protocol Norepinephrine Bitartrate 4 mg 254 mls @ 19.05 mls/hr 08/11/18 03:45 08/11/18 04:07 / Dextrose IV 5 mcg/min .[id number] PEDRO 19.05 mls/hr Administration Protocol 5 MCG/MIN Sodium Bicarbonate 150 meq/ 1,150 mls @ 100 mls/hr 08/11/18 05:15 Dextrose/Sodium Chloride IV 08/12/18 05:13 .[id number] [facility] Insulin Detemir 12 units 08/10/18 22:00 08/10/18 21:35 Levemir SC 12 units Q12H PEDRO Administration Insulin Human Lispro 0 units 08/09/18 16:30 08/10/18 21:34 Humalog SC Not Given ACHS [facility] Protocol Pantoprazole Sodium 40 mg 08/07/18 14:15 08/10/18 09:29 Protonix Inj IVP 40 mg DAILY PEDRO Administration - Patient Studies Lab Studies: Microbiology Studies 08/07/18 17:37 Blood Culture - Preliminary Blood-Venous NO GROWTH AFTER 3 DAYS 08/07/18 13:52 Blood Culture - Preliminary Blood-Venous NO GROWTH AFTER 3 DAYS 08/08/18 14:25 Gram Stain - Final Trachasp Sputum Culture - Final NORMAL ORAL DEBBY Lab Studies 08/11/18 08/11/18 08/11/18 Range/Units 05:12 04:10 03:42 WBC (4.8-10.8) K/uL RBC (4.40-5.90) Mil/uL Hgb (12.0-18.0) g/dL Hct (35.0-51.0) % MCV (80.0-94.0) fl MCH (27.0-31.0) pg MCHC (33.0-37.0) g/dL RDW (11.5-14.5) % Plt Count (130-400) K/uL pCO2 47 H (35-45) mm/Hg pO2 19 L 45 L (80-100) mm/Hg HCO3 15.6 L (21-28) mmol/L ABG pH 7.17 L* (7.35-7.45) ABG Total CO2 18.5 L (22-28) mmol/L ABG O2 Saturation 79.2 L (95-98) % ABG O2 Content 14.6 L (15-23) ML/dL ABG Base Excess -11.3 L (-2.0-3.0) mmol/L ABG Hemoglobin 13.5 (11.7-17.4) g/dL ABG Carboxyhemoglobin 1.2 (0.5-1.5) % POC ABG HHb (Measured) 20.3 H (0.0-5.0) % ABG Methemoglobin 1.4 (0.0-3.0) % ABG O2 Capacity 18.4 (16-24) mL/dL Jose Test Yes ABG Potassium (3.6-5.2) mmol/L VBG pH 7.02 L* (7.32-7.43) VBG pCO2 64 H (40-60) mmHg VBG HCO3 11.1 mmol/L VBG Total CO2 18.5 L (22-28) mmol/L VBG O2 Sat (Calc) 23.6 L (40-65) % VBG Base Excess -15.1 L (0.0-2.0) mmol/L VBG Potassium 5.8 H (3.6-5.2) mmol/L A-a O2 Difference 609.0 mm/Hg Hgb O2 Saturation 77.1 L (95.0-98.0) % Glucose 253 H (75-110) mg/dL Lactate 8.5 H* (0.7-2.1) mmol/L Vent Mode A/c Mechanical Rate 22 FiO2 100.0 100.0 % Tidal Volume 400 PEEP 10 Blood Gas Comments Crit Value Called To Dr mendez stokes rn Crit Value Called By [id number] Crit Value Read Back Y Y Blood Gas Notified Time 516 358 Sodium 144.0 (132-148) mmol/l Potassium (3.6-5.0) MMOL/L Chloride 109.0 H (98-107) mmol/L Carbon Dioxide (22-30) mmol/L Anion Gap (10-20) BUN (9-20) mg/dl Creatinine (0.8-1.5) mg/dl Est GFR ( Amer) Est GFR (Non-Af Amer) POC Glucose (mg/dL) 219 H (65-110) mg/dL Random Glucose (75-110) mg/dL Hemoglobin A1c (4.2-6.5) % Calcium (8.4-10.2) mg/dL Phosphorus (2.5-4.5) mg/dl Magnesium (1.6-2.3) MG/DL Total Bilirubin (0.2-1.3) mg/dl AST (17-59) U/L ALT (21-72) U/L Alkaline Phosphatase (38-126) U/L Ammonia (16-60) umo/L Total Protein (6.3-8.2) G/DL Albumin (3.5-5.0) g/dL Globulin (2.2-3.9) gm/dL Albumin/Globulin Ratio (1.0-2.1) TSH 3rd Generation (0.46-4.68) mIU/ML Arterial Blood Potassium (3.6-5.2) mmol/L Venous Blood Potassium 5.8 H (3.6-5.2) mmol/L 08/10/18 08/10/18 08/10/18 Range/Units 21:32 16:30 12:23 WBC (4.8-10.8) K/uL RBC (4.40-5.90) Mil/uL Hgb (12.0-18.0) g/dL Hct (35.0-51.0) % MCV (80.0-94.0) fl MCH (27.0-31.0) pg MCHC (33.0-37.0) g/dL RDW (11.5-14.5) % Plt Count (130-400) K/uL pCO2 (35-45) mm/Hg pO2 (80-100) mm/Hg HCO3 (21-28) mmol/L ABG pH (7.35-7.45) ABG Total CO2 (22-28) mmol/L ABG O2 Saturation (95-98) % ABG O2 Content (15-23) ML/dL ABG Base Excess (-2.0-3.0) mmol/L ABG Hemoglobin (11.7-17.4) g/dL ABG Carboxyhemoglobin (0.5-1.5) % POC ABG HHb (Measured) (0.0-5.0) % ABG Methemoglobin (0.0-3.0) % ABG O2 Capacity (16-24) mL/dL Jose Test ABG Potassium (3.6-5.2) mmol/L VBG pH (7.32-7.43) VBG pCO2 (40-60) mmHg VBG HCO3 mmol/L VBG Total CO2 (22-28) mmol/L VBG O2 Sat (Calc) (40-65) % VBG Base Excess (0.0-2.0) mmol/L VBG Potassium (3.6-5.2) mmol/L A-a O2 Difference mm/Hg Hgb O2 Saturation (95.0-98.0) % Glucose (75-110) mg/dL Lactate (0.7-2.1) mmol/L Vent Mode Mechanical Rate FiO2 % Tidal Volume PEEP Blood Gas Comments Crit Value Called To Crit Value Called By Crit Value Read Back Blood Gas Notified Time Sodium (132-148) mmol/l Potassium (3.6-5.0) MMOL/L Chloride (98-107) mmol/L Carbon Dioxide (22-30) mmol/L Anion Gap (10-20) BUN (9-20) mg/dl Creatinine (0.8-1.5) mg/dl Est GFR ( Amer) Est GFR (Non-Af Amer) POC Glucose (mg/dL) 231 H 188 H 186 H (65-110) mg/dL Random Glucose (75-110) mg/dL Hemoglobin A1c (4.2-6.5) % Calcium (8.4-10.2) mg/dL Phosphorus (2.5-4.5) mg/dl Magnesium (1.6-2.3) MG/DL Total Bilirubin (0.2-1.3) mg/dl AST (17-59) U/L ALT (21-72) U/L Alkaline Phosphatase (38-126) U/L Ammonia (16-60) umo/L Total Protein (6.3-8.2) G/DL Albumin (3.5-5.0) g/dL Globulin (2.2-3.9) gm/dL Albumin/Globulin Ratio (1.0-2.1) TSH 3rd Generation (0.46-4.68) mIU/ML Arterial Blood Potassium (3.6-5.2) mmol/L Venous Blood Potassium (3.6-5.2) mmol/L 08/10/18 08/10/18 08/10/18 Range/Units 10:54 04:30 04:30 WBC (4.8-10.8) K/uL RBC (4.40-5.90) Mil/uL Hgb (12.0-18.0) g/dL Hct (35.0-51.0) % MCV (80.0-94.0) fl MCH (27.0-31.0) pg MCHC (33.0-37.0) g/dL RDW (11.5-14.5) % Plt Count (130-400) K/uL pCO2 38 (35-45) mm/Hg pO2 52 L (80-100) mm/Hg HCO3 19.4 L (21-28) mmol/L ABG pH 7.31 L (7.35-7.45) ABG Total CO2 20.3 L (22-28) mmol/L ABG O2 Saturation 87.8 L (95-98) % ABG O2 Content (15-23) ML/dL ABG Base Excess -6.6 L (-2.0-3.0) mmol/L ABG Hemoglobin (11.7-17.4) g/dL ABG Carboxyhemoglobin (0.5-1.5) % POC ABG HHb (Measured) (0.0-5.0) % ABG Methemoglobin (0.0-3.0) % ABG O2 Capacity (16-24) mL/dL Jose Test Yes ABG Potassium 5.8 H (3.6-5.2) mmol/L VBG pH (7.32-7.43) VBG pCO2 (40-60) mmHg VBG HCO3 mmol/L VBG Total CO2 (22-28) mmol/L VBG O2 Sat (Calc) (40-65) % VBG Base Excess (0.0-2.0) mmol/L VBG Potassium (3.6-5.2) mmol/L A-a O2 Difference 614.0 mm/Hg Hgb O2 Saturation (95.0-98.0) % Glucose 220 H (75-110) mg/dL Lactate 4.5 H* (0.7-2.1) mmol/L Vent Mode Prvc/ac Mechanical Rate 22 FiO2 100.0 % Tidal Volume 400 PEEP 10 Blood Gas Comments Lac=4.5 Crit Value Called To jw Eng Crit Value Called By 22 Crit Value Read Back Y Blood Gas Notified Time 1114 Sodium 148.0 (132-148) mmol/l Potassium (3.6-5.0) MMOL/L Chloride 114.0 H (98-107) mmol/L Carbon Dioxide (22-30) mmol/L Anion Gap (10-20) BUN (9-20) mg/dl Creatinine (0.8-1.5) mg/dl Est GFR ( Amer) Est GFR (Non-Af Amer) POC Glucose (mg/dL) (65-110) mg/dL Random Glucose (75-110) mg/dL Hemoglobin A1c 9.5 H (4.2-6.5) % Calcium (8.4-10.2) mg/dL Phosphorus (2.5-4.5) mg/dl Magnesium (1.6-2.3) MG/DL Total Bilirubin (0.2-1.3) mg/dl AST (17-59) U/L ALT (21-72) U/L Alkaline Phosphatase (38-126) U/L Ammonia 17 D (16-60) umo/L Total Protein (6.3-8.2) G/DL Albumin (3.5-5.0) g/dL Globulin (2.2-3.9) gm/dL Albumin/Globulin Ratio (1.0-2.1) TSH 3rd Generation (0.46-4.68) mIU/ML Arterial Blood Potassium 5.8 H (3.6-5.2) mmol/L Venous Blood Potassium (3.6-5.2) mmol/L 08/10/18 08/10/18 Range/Units 04:30 04:30 WBC 15.2 H (4.8-10.8) K/uL RBC 4.88 (4.40-5.90) Mil/uL Hgb 12.7 (12.0-18.0) g/dL Hct 41.1 (35.0-51.0) % MCV 84.1 (80.0-94.0) fl MCH 26.0 L (27.0-31.0) pg MCHC 31.0 L (33.0-37.0) g/dL RDW 16.9 H (11.5-14.5) % Plt Count 214 (130-400) K/uL pCO2 (35-45) mm/Hg pO2 (80-100) mm/Hg HCO3 (21-28) mmol/L ABG pH (7.35-7.45) ABG Total CO2 (22-28) mmol/L ABG O2 Saturation (95-98) % ABG O2 Content (15-23) ML/dL ABG Base Excess (-2.0-3.0) mmol/L ABG Hemoglobin (11.7-17.4) g/dL ABG Carboxyhemoglobin (0.5-1.5) % POC ABG HHb (Measured) (0.0-5.0) % ABG Methemoglobin (0.0-3.0) % ABG O2 Capacity (16-24) mL/dL Jose Test ABG Potassium (3.6-5.2) mmol/L VBG pH (7.32-7.43) VBG pCO2 (40-60) mmHg VBG HCO3 mmol/L VBG Total CO2 (22-28) mmol/L VBG O2 Sat (Calc) (40-65) % VBG Base Excess (0.0-2.0) mmol/L VBG Potassium (3.6-5.2) mmol/L A-a O2 Difference mm/Hg Hgb O2 Saturation (95.0-98.0) % Glucose (75-110) mg/dL Lactate (0.7-2.1) mmol/L Vent Mode Mechanical Rate FiO2 % Tidal Volume PEEP Blood Gas Comments Crit Value Called To Crit Value Called By Crit Value Read Back Blood Gas Notified Time Sodium 148 (132-148) mmol/l Potassium 5.0 (3.6-5.0) MMOL/L Chloride 112 H (98-107) mmol/L Carbon Dioxide 24 (22-30) mmol/L Anion Gap 17 (10-20) BUN 70 H (9-20) mg/dl Creatinine 4.0 H (0.8-1.5) mg/dl Est GFR ( Amer) 18 Est GFR (Non-Af Amer) 15 POC Glucose (mg/dL) (65-110) mg/dL Random Glucose 198 H (75-110) mg/dL Hemoglobin A1c (4.2-6.5) % Calcium 7.1 L (8.4-10.2) mg/dL Phosphorus 4.1 (2.5-4.5) mg/dl Magnesium 1.9 (1.6-2.3) MG/DL Total Bilirubin 1.6 H (0.2-1.3) mg/dl AST 1621 H (17-59) U/L ALT 2975 H (21-72) U/L Alkaline Phosphatase 137 H (38-126) U/L Ammonia (16-60) umo/L Total Protein 5.7 L (6.3-8.2) G/DL Albumin 2.6 L (3.5-5.0) g/dL Globulin 3.1 (2.2-3.9) gm/dL Albumin/Globulin Ratio 0.9 L (1.0-2.1) TSH 3rd Generation 1.29 (0.46-4.68) mIU/ML Arterial Blood Potassium (3.6-5.2) mmol/L Venous Blood Potassium (3.6-5.2) mmol/L Laboratory Results - last 24 hr 08/10/18 08/10/18 08/10/18 04:30 04:30 04:30 WBC 15.2 H RBC 4.88 Hgb 12.7 Hct 41.1 MCV 84.1 MCH 26.0 L MCHC 31.0 L RDW 16.9 H Plt Count 214 pCO2 pO2 HCO3 ABG pH ABG Total CO2 ABG O2 Saturation ABG O2 Content ABG Base Excess ABG Hemoglobin ABG Carboxyhemoglobin POC ABG HHb (Measured) ABG Methemoglobin ABG O2 Capacity Jose Test ABG Potassium VBG pH VBG pCO2 VBG HCO3 VBG Total CO2 VBG O2 Sat (Calc) VBG Base Excess VBG Potassium A-a O2 Difference Hgb O2 Saturation Glucose Lactate Vent Mode Mechanical Rate FiO2 Tidal Volume PEEP Blood Gas Comments Crit Value Called To Crit Value Called By Crit Value Read Back Blood Gas Notified Time Sodium 148 Potassium 5.0 Chloride 112 H Carbon Dioxide 24 Anion Gap 17 BUN 70 H Creatinine 4.0 H Est GFR ( Amer) 18 Est GFR (Non-Af Amer) 15 POC Glucose (mg/dL) Random Glucose 198 H Hemoglobin A1c 9.5 H Calcium 7.1 L Phosphorus 4.1 Magnesium 1.9 Total Bilirubin 1.6 H AST 1621 H ALT 2975 H Alkaline Phosphatase 137 H Ammonia Total Protein 5.7 L Albumin 2.6 L Globulin 3.1 Albumin/Globulin Ratio 0.9 L TSH 3rd Generation 1.29 Arterial Blood Potassium Venous Blood Potassium 08/10/18 08/10/18 08/10/18 04:30 10:54 12:23 WBC RBC Hgb Hct MCV MCH MCHC RDW Plt Count pCO2 38 pO2 52 L HCO3 19.4 L ABG pH 7.31 L ABG Total CO2 20.3 L ABG O2 Saturation 87.8 L ABG O2 Content ABG Base Excess -6.6 L ABG Hemoglobin ABG Carboxyhemoglobin POC ABG HHb (Measured) ABG Methemoglobin ABG O2 Capacity Jose Test Yes ABG Potassium 5.8 H VBG pH VBG pCO2 VBG HCO3 VBG Total CO2 VBG O2 Sat (Calc) VBG Base Excess VBG Potassium A-a O2 Difference 614.0 Hgb O2 Saturation Glucose 220 H Lactate 4.5 H* Vent Mode Prvc/ac Mechanical Rate 22 FiO2 100.0 Tidal Volume 400 PEEP 10 Blood Gas Comments Lac=4.5 Crit Value Called To jw Eng Crit Value Called By 22 Crit Value Read Back Y Blood Gas Notified Time 1114 Sodium 148.0 Potassium Chloride 114.0 H Carbon Dioxide Anion Gap BUN Creatinine Est GFR ( Amer) Est GFR (Non-Af Amer) POC Glucose (mg/dL) 186 H Random Glucose Hemoglobin A1c Calcium Phosphorus Magnesium Total Bilirubin AST ALT Alkaline Phosphatase Ammonia 17 D Total Protein Albumin Globulin Albumin/Globulin Ratio TSH 3rd Generation Arterial Blood Potassium 5.8 H Venous Blood Potassium 08/10/18 08/10/18 08/11/18 16:30 21:32 03:42 WBC RBC Hgb Hct MCV MCH MCHC RDW Plt Count pCO2 47 H pO2 45 L HCO3 15.6 L ABG pH 7.17 L* ABG Total CO2 18.5 L ABG O2 Saturation 79.2 L ABG O2 Content 14.6 L ABG Base Excess -11.3 L ABG Hemoglobin 13.5 ABG Carboxyhemoglobin 1.2 POC ABG HHb (Measured) 20.3 H ABG Methemoglobin 1.4 ABG O2 Capacity 18.4 Jose Test Yes ABG Potassium VBG pH VBG pCO2 VBG HCO3 VBG Total CO2 VBG O2 Sat (Calc) VBG Base Excess VBG Potassium A-a O2 Difference 609.0 Hgb O2 Saturation 77.1 L Glucose Lactate Vent Mode A/c Mechanical Rate 22 FiO2 100.0 Tidal Volume 400 PEEP 10 Blood Gas Comments Crit Value Called To Meli stokes rn Crit Value Called By 6075 Crit Value Read Back Y Blood Gas Notified Time 358 Sodium Potassium Chloride Carbon Dioxide Anion Gap BUN Creatinine Est GFR ( Amer) Est GFR (Non-Af Amer) POC Glucose (mg/dL) 188 H 231 H Random Glucose Hemoglobin A1c Calcium Phosphorus Magnesium Total Bilirubin AST ALT Alkaline Phosphatase Ammonia Total Protein Albumin Globulin Albumin/Globulin Ratio TSH 3rd Generation Arterial Blood Potassium Venous Blood Potassium 08/11/18 08/11/18 04:10 05:12 WBC RBC Hgb Hct MCV MCH MCHC RDW Plt Count pCO2 pO2 19 L HCO3 ABG pH ABG Total CO2 ABG O2 Saturation ABG O2 Content ABG Base Excess ABG Hemoglobin ABG Carboxyhemoglobin POC ABG HHb (Measured) ABG Methemoglobin ABG O2 Capacity Jose Test ABG Potassium VBG pH 7.02 L* VBG pCO2 64 H VBG HCO3 11.1 VBG Total CO2 18.5 L VBG O2 Sat (Calc) 23.6 L VBG Base Excess -15.1 L VBG Potassium 5.8 H A-a O2 Difference Hgb O2 Saturation Glucose 253 H Lactate 8.5 H* Vent Mode Mechanical Rate FiO2 100.0 Tidal Volume PEEP Blood Gas Comments Crit Value Called To Dr mendez pereyra Crit Value Called By 6075 Crit Value Read Back Y Blood Gas Notified Time 516 Sodium 144.0 Potassium Chloride 109.0 H Carbon Dioxide Anion Gap BUN Creatinine Est GFR ( Amer) Est GFR (Non-Af Amer) POC Glucose (mg/dL) 219 H Random Glucose Hemoglobin A1c Calcium Phosphorus Magnesium Total Bilirubin AST ALT Alkaline Phosphatase Ammonia Total Protein Albumin Globulin Albumin/Globulin Ratio TSH 3rd Generation Arterial Blood Potassium Venous Blood Potassium 5.8 H Fingerstick Blood Sugar Results: 231 Critical Care Progress Note - Nutrition Nutrition: Nutrition Category Date Time Status NPO Diet [DIET] Diets 08/07/18 Dinner Active
[2018-08-11 05:41] LABS: ALB/GLOB RATIO 0.8 (1.0-2.1); ALBUMIN 2.6 g/dL (3.5-5.0); CALCIUM 6.7 mg/dL (8.4-10.2)
[2018-08-11] MEDS ORDERED: Phenylephrine 30 MG in Sodium Chloride 0.9% 250 ML IV SCH (06:30)
[2018-08-11] MEDS: Insulin Lispro (humaLOG) 100 Units/ml Inj SC SCH (06:41)
[2018-08-11] MEDS: Albuterol-Ipratrop 3 mg / 0.5 (3 ml) UD INH SCH (07:26)
--- NOTE | 2018-08-11 07:28 | CP.CCUPN ---
CCU Subjective - Physician Review Subjective (Free Text): Code Blue Note: Code called for recurrent bradyasystole; CPR / ACLS started immediately, high quality chest compressions ensured. Initial rhythm noted to be junctional rhythm at 30 / min, Atropine and Epinephrine given, Bicarb drip opened to free flow rate, mas Levophed infusing and Phenylephrine at 40 mcg dose. Ongoing attempts at resuscitation with further doses of epinephrine and Atropine administered. ROSC achieved with SBP 180, and HR 119 in sinus with 1st degree AVB. He is comatose post resuscitation, but Propofol was turned off at 545AM. MV settings chnaged to help imporve oxygenation; alveolar recruitment maneuvers performed, final settings placed at AC 22, TV 500, PEEP 8, and FiO2 remains at 100% with 91 % SPO2, imporved from 84% post - resuscitation. No family available, Attending notified.
[2018-08-11] MEDS ORDERED: Calcium Gluconate 4.65 mEq/10 ml Inj IV ONE (07:57)
--- NOTE | 2018-08-11 08:12 | CP.PCM.PN ---
<Manuel Huerta - Last Filed: 08/11/18 11:24> Subjective - Date & Time of Evaluation Date of Evaluation: 08/11/18 Time of Evaluation: 08:25 - Subjective Subjective: Patient currently undergoing code blue. Patient just had 1 code blue called 1 hour ago. Patient is s/p code blue 3 days ago. Patient's son was contacted and states that we are to complete current code; however, if patient regains rosc but becomes pulseless again then to cease further aggressive measures and allow patient to pass peacefully. Objective - Vital Signs/Intake and Output Vital Signs (last 24 hours): Temp Pulse Resp BP Pulse Ox 100.2 F H 83 10 L 118/82 80 L 08/11/18 01:26 08/11/18 07:10 08/11/18 07:10 08/11/18 07:10 08/11/18 07:10 Intake and Output: 08/11/18 08/11/18 06:59 18:59 Intake Total 2372 Output Total 100 Balance 2272 - Medications Medications: Current Medications Acetaminophen (Tylenol 650mg/20.3ml Solution Ud) 650 mg PO Q4 PRN PRN Reason: Temperature Last Admin: 08/11/18 00:26 Dose: 650 mg Albuterol/Ipratropium (Duoneb 3 Mg/0.5 Mg (3 Ml) Ud) 3 ml INH RQID PEDRO Last Admin: 08/11/18 07:26 Dose: 3 ml Aspirin (Aspirin) 325 mg PO DAILY PEDRO Last Admin: 08/10/18 15:24 Dose: 325 mg Azithromycin 500 mg/ Sodium (Chloride) 250 mls @ 250 mls/hr IVPB DAILY PEDRO; Protocol Last Admin: 08/10/18 09:30 Dose: 250 mls/hr Levetiracetam 1,000 mg/ Sodium (Chloride) 110 mls @ 110 mls/hr IVPB Q12 PEDRO Acyclovir 800 mg/ Sodium (Chloride) 250 mls @ 250 mls/hr IVPB BID PEDRO; Protocol Piperacillin Sod/Tazobactam (Sod 2.25 gm/ Sodium Chloride) 100 mls @ 100 mls/hr IVPB Q8 PEDRO; Protocol Last Admin: 08/11/18 00:17 Dose: 100 mls/hr Sodium Bicarbonate 150 meq/ (Dextrose/Sodium Chloride) 1,150 mls @ 100 mls/hr IV .[id number] PEDRO Stop: 08/12/18 05:13 Last Admin: 08/11/18 05:44 Dose: 100 mls/hr Norepinephrine Bitartrate 4 mg (/ Dextrose) 254 mls @ 114.3 mls/hr IV .Q2H14M PEDRO; Protocol Last Admin: 08/11/18 05:59 Dose: 30 mcg/min, 114.3 mls/hr Phenylephrine HCl 30 mg/ (Sodium Chloride) 253 mls @ 10.12 mls/hr IV .Q24H PEDRO; Protocol Stop: 08/12/18 06:17 Last Titration: 08/11/18 06:47 Dose: 50 mcg/min, 25.3 mls/hr Calcium Gluconate 4.6 meq/ (Sodium Chloride) 109.8924 mls @ 109.892 mls/hr IV ONCE ONE Stop: 08/11/18 09:14 Insulin Detemir (Levemir) 12 units SC Q12H [facility] Last Admin: 08/10/18 21:35 Dose: 12 units Insulin Human Lispro (Humalog) 0 units SC ACHS [facility]; Protocol Last Admin: 08/11/18 06:41 Dose: Not Given Pantoprazole Sodium (Protonix Inj) 40 mg IVP DAILY [facility] Last Admin: 08/10/18 09:29 Dose: 40 mg - Labs Labs: 08/11/18 04:30 08/11/18 04:30 PT 17.0 Seconds (9.8-13.1) H 08/08/18 07:50 INR 1.5 08/08/18 07:50 APTT 31.7 Seconds (25.6-37.1) 08/08/18 07:50 - Constitutional Appears: In Acute Distress - Head Exam Head Exam: ATRAUMATIC, NORMAL INSPECTION, NORMOCEPHALIC - Eye Exam Eye Exam: Scleral icterus Additional comments: fixed, dilated - ENT Exam ENT Exam: Mucous Membranes Dry - Respiratory Exam Respiratory Exam: Rhonchi - Cardiovascular Exam Cardiovascular Exam: Tachycardia (phys exam as of code blue @ 08:25) - GI/Abdominal Exam GI & Abdominal Exam: Distended, Soft, Normal Bowel Sounds. absent: Tenderness - Extremities Exam Additional comments: stasis dermatitis on right anterior tibia - Neurological Exam Neurological Exam: absent: Alert, Awake Additional comments: GCS 3 - Skin Skin Exam: Dry Assessment and Plan - Assessment and Plan (Free Text) Assessment: 73 yo male with PMH of DM2, HTN, Hyperlipidemia and depression brought in by EMS for altered mental status. CT possible Subacute infarct right posterior parasagittal parietal lobe along the watershed zone of the right DIAL MAKER/Posterior MCA territory. Patient is admitted for altered mental status, suspected CVA and suspected pneumonia. Plan: Patient achieved ROSC but as per son, no further code will be called Patient pronounced time of @ 09:18 <Anita Mcfadden Carley - Last Filed: 08/11/18 19:23> Objective - Vital Signs/Intake and Output Vital Signs (last 24 hours): Temp Pulse Resp BP Pulse Ox 100.2 F H 118 H 22 129/88 100 08/11/18 01:26 08/11/18 08:00 08/11/18 08:00 08/11/18 08:00 08/11/18 08:00 Intake and Output: 08/11/18 08/12/18 18:59 06:59 Intake Total 2150 Balance 2150 - Labs Labs: 08/11/18 04:30 08/11/18 04:30 PT 17.0 Seconds (9.8-13.1) H 08/08/18 07:50 INR 1.5 08/08/18 07:50 APTT 31.7 Seconds (25.6-37.1) 08/08/18 07:50 Attending/Attestation - Attestation I have personally seen and examined this patient.: Yes I have fully participated in the care of the patient.: Yes I have reviewed all pertinent clinical information, including history, physical exam and plan: Yes Notes (Text): Septic Shock sec to Bacterial Pneumonia Respiratory Failure due to Sepsis, Pneumonia Acute CVA Acute Renal Failure Shock Liver
[2018-08-11] MEDS ORDERED: Calcium Gluconate 4.6 MEQ in Sodium Chloride 0.9% 100 ML IV ONE (08:15)
--- NOTE | 2018-08-11 08:56 | CP.CCUPN ---
CCU Subjective - Physician Review Subjective (Free Text): Code Blue Note: 2nd Code called this AM for recurrent bradyasystole; CPR / ACLS started immediately, high quality chest compressions ensured. Initial rhythm noted to be a wide QRS rhythm at 41 / min, Atropine and Epinephrine given, Bicarb drip opened to free flow rate, max Levophed infusing and Phenylephrine at 40 mcg dose. Ongoing attempts at resuscitation with further doses of epinephrine and Atropine administered as well as NaBicardb IVP which converted rhythm to an SVT at 126/min, with palpable pulses. Call made to patient's son, present clinical situation discussed between him and PMD, resultant terms now include if successfully resuscitated this time, then no further aggressive interventions if hopes for recovery are poor. He is comatose post-resuscitation, and overall prognosis is extremely poor. Expect bradyasystole rhythm to recur as soon as present Code medication effects dissipate. Will issue DNR orders now and ensure comfort care. Discussed with PMD.
--- NOTE | 2018-08-11 09:45 | CP.PCM.PRO ---
Pronouncement of Note - Clinical Findings Physical Exam: No Response Verbal/Painful Stimuli, Absent Peripheral Puls es{Carotid & Femoral}, Absent Heart & Breath Sounds, No Pupillary Light Reflex, No Corneal Reflex, Pupils Fixed & Dilated, Absence of Vital Signs - Pronouncement Time Time of Pronouncement of : 09:18 - Notifications Pronouncement Notifications: Family Notified, Atending Notified [employer] Worker Notified: No - Autopsy Autopsy Requested: No - [place]: [id number]
[2018-08-11] MEDS ORDERED: levETIRAcetam 1,000 MG in Sodium Chloride 0.9% 100 ML IVPB SCH (10:00)
[2018-08-11 10:22] VITALS: BP 129/88; PULSE 118; RESP 22; O2SAT 100
--- NOTE | 2018-08-11 11:41 | RAD ---
Date of service: 08/11/2018 HISTORY: intubated COMPARISON: 08/10/2018 FINDINGS: LUNGS: Limited examination due to shallow lung volumes and leftward rotation-a similar limitation is noted on the prior study. An endotracheal tube tip is inserted PLEURA: Left pleural effusion is re suggested. No pneumothorax apparent. CARDIOVASCULAR: No aortic atherosclerotic calcification present. Probable cardiac enlargement.. Possible central pulmonary venous congestion-the shallow lung volumes impedes optimal evaluation. OSSEOUS STRUCTURES: No significant abnormalities. VISUALIZED UPPER ABDOMEN: Normal. OTHER FINDINGS: History states inspiration and endotracheal tube and a apparent NG tube are inserted the distal NG tube tip (please verify its insertion is very difficult to identify with certainty even with windowing adjustments) IMPRESSION: Limited exam as noted previously cardiomegaly probable. Left pleural effusion with basal left consolidation inferred. Overall appearance similar. The endotracheal tube and apparent NG tube tips are difficult to identify with certainty. Consider repeat exam and or correlate clinically. Comments: Study marked for PA review .
--- NOTE | 2018-08-12 06:42 | CP.PCM.DIS ---
<Manuel Heurta - Last Filed: 08/12/18 06:36> Provider - Provider Date of Admission: 08/07/18 13:49 Attending physician: Geovanni Diaz MD Time Spent in preparation of Discharge (in minutes): 15 Diagnosis - Discharge Diagnosis (1) RIVER (acute kidney injury) Status: Acute Priority: High (2) Altered mental status Status: Acute Priority: High (3) Anoxic brain injury Status: Acute Priority: High (4) CVA (cerebral vascular accident) Status: Acute Priority: High (5) Cardiac arrest Status: Acute Priority: High (6) LFT elevation Status: Acute Priority: High (7) Pleural effusion associated with pulmonary infection Status: Acute Priority: High (8) Pneumonia Status: Acute Priority: High Hospital Course - Lab Results Lab Results: Micro Results 08/07/18 17:37 Blood-Venous Blood Culture - Preliminary NO GROWTH AFTER 4 DAYS 08/07/18 13:52 Blood-Venous Blood Culture - Preliminary NO GROWTH AFTER 4 DAYS 08/08/18 14:25 Trachasp Gram Stain - Final 08/08/18 14:25 Trachasp Sputum Culture - Final NORMAL ORAL DEBBY 08/08/18 14:25 Naris MRSA Culture (Admit) - Final MRSA NOT DETECTED 08/08/18 17:00 Urine,Phipps Urine Culture - Final No Growth (<1,000 CFU/ML) Most Recent Lab Values WBC 15.6 K/uL (4.8-10.8) H 08/11/18 04:30 RBC 4.99 Mil/uL (4.40-5.90) 08/11/18 04:30 Hgb 12.8 g/dL (12.0-18.0) 08/11/18 04:30 Hct 43.1 % (35.0-51.0) 08/11/18 04:30 MCV 86.5 fl (80.0-94.0) D 08/11/18 04:30 MCH 25.7 pg (27.0-31.0) L 08/11/18 04:30 MCHC 29.7 g/dL (33.0-37.0) L 08/11/18 04:30 RDW 17.8 % (11.5-14.5) H 08/11/18 04:30 Plt Count 175 K/uL (130-400) 08/11/18 04:30 MPV 10.6 fl (7.2-11.7) 08/09/18 04:30 Neut % (Auto) 89.5 % (50.0-75.0) H 08/09/18 04:30 Lymph % (Auto) 2.9 % (20.0-40.0) L 08/09/18 04:30 Yates % (Auto) 7.4 % (0.0-10.0) 08/09/18 04:30 Eos % (Auto) 0.0 % (0.0-4.0) 08/09/18 04:30 Baso % (Auto) 0.2 % (0.0-2.0) 08/09/18 04:30 Neut # (Auto) 13.9 K/uL (1.8-7.0) H 08/09/18 04:30 Lymph # (Auto) 0.5 K/uL (1.0-4.3) L 08/09/18 04:30 Yates # (Auto) 1.2 K/uL (0.0-0.8) H 08/09/18 04:30 Eos # (Auto) 0.0 K/uL (0.0-0.7) 08/09/18 04:30 Baso # (Auto) 0.0 K/uL (0.0-0.2) 08/09/18 04:30 Neutrophils % (Manual) 91 % (42-75) H 08/08/18 05:32 Lymphocytes % (Manual) 2 % (20-50) L 08/08/18 05:32 Monocytes % (Manual) 5 % (0-10) 08/08/18 05:32 Basophils % (Manual) 1 % (0-2) 08/07/18 10:09 Myelocytes % 2 % (0-0) H 08/08/18 05:32 Platelet Estimate Normal (NORMAL) 08/08/18 05:32 Large Platelets Present 08/07/18 10:09 Polychromasia Slight 08/08/18 05:32 Anisocytosis (manual) Slight 08/08/18 05:32 Ovalocytes Slight 08/07/18 10:09 PT 17.0 Seconds (9.8-13.1) H 08/08/18 07:50 INR 1.5 08/08/18 07:50 APTT 31.7 Seconds (25.6-37.1) 08/08/18 07:50 pCO2 47 mm/Hg (35-45) H 08/11/18 03:42 pO2 19 mm/Hg (30-55) L 08/11/18 05:12 HCO3 15.6 mmol/L (21-28) L 08/11/18 03:42 ABG pH 7.17 (7.35-7.45) L* 08/11/18 03:42 ABG Total CO2 18.5 mmol/L (22-28) L 08/11/18 03:42 ABG O2 Saturation 79.2 % (95-98) L 08/11/18 03:42 ABG O2 Content 14.6 ML/dL (15-23) L 08/11/18 03:42 ABG Base Excess -11.3 mmol/L (-2.0-3.0) L 08/11/18 03:42 ABG Hemoglobin 13.5 g/dL (11.7-17.4) 08/11/18 03:42 ABG Carboxyhemoglobin 1.2 % (0.5-1.5) 08/11/18 03:42 POC ABG HHb (Measured) 20.3 % (0.0-5.0) H 08/11/18 03:42 ABG Methemoglobin 1.4 % (0.0-3.0) 08/11/18 03:42 ABG O2 Capacity 18.4 mL/dL (16-24) 08/11/18 03:42 Jose Test Yes 08/11/18 03:42 ABG Potassium 5.8 mmol/L (3.6-5.2) H 08/10/18 10:54 VBG pH 7.02 (7.32-7.43) L* 08/11/18 05:12 VBG pCO2 64 mmHg (40-60) H 08/11/18 05:12 VBG HCO3 11.1 mmol/L 08/11/18 05:12 VBG Total CO2 18.5 mmol/L (22-28) L 08/11/18 05:12 VBG O2 Sat (Calc) 23.6 % (40-65) L 08/11/18 05:12 VBG Base Excess -15.1 mmol/L (0.0-2.0) L 08/11/18 05:12 VBG Potassium 5.8 mmol/L (3.6-5.2) H 08/11/18 05:12 A-a O2 Difference 609.0 mm/Hg 08/11/18 03:42 Hgb O2 Saturation 77.1 % (95.0-98.0) L 08/11/18 03:42 Sodium 144.0 mmol/L (132-148) 08/11/18 05:12 Chloride 109.0 mmol/L (98-107) H 08/11/18 05:12 Glucose 253 mg/dL (75-110) H 08/11/18 05:12 Lactate 8.5 mmol/L (0.7-2.1) H* 08/11/18 05:12 Vent Mode A/c 08/11/18 03:42 Mechanical Rate 22 08/11/18 03:42 FiO2 100.0 % 08/11/18 05:12 Tidal Volume 400 08/11/18 03:42 PEEP 10 08/11/18 03:42 Blood Gas Comments Lac=4.5 08/10/18 10:54 Crit Value Called To Dr mendez pereyra 08/11/18 05:12 Crit Value Called By [id number] 08/11/18 05:12 Crit Value Read Back Y 08/11/18 05:12 Blood Gas Notified Time 516 08/11/18 05:12 Sodium 146 mmol/l (132-148) 08/11/18 04:30 Potassium 6.1 MMOL/L (3.6-5.0) H 08/11/18 04:30 Chloride 114 mmol/L (98-107) H 08/11/18 04:30 Carbon Dioxide 19 mmol/L (22-30) L 08/11/18 04:30 Anion Gap 19 (10-20) 08/11/18 04:30 BUN 78 mg/dl (9-20) H 08/11/18 04:30 Creatinine 5.7 mg/dl (0.8-1.5) H 08/11/18 04:30 Est GFR ( Amer) 12 08/11/18 04:30 Est GFR (Non-Af Amer) 10 08/11/18 04:30 POC Glucose (mg/dL) 219 mg/dL (65-110) H 08/11/18 04:10 Random Glucose 238 mg/dL (75-110) H 08/11/18 04:30 Hemoglobin A1c 9.5 % (4.2-6.5) H 08/10/18 04:30 Lactic Acid 4.3 MMOL/L (0.7-2.1) H* 08/11/18 04:30 Calcium 6.7 mg/dL (8.4-10.2) L 08/11/18 04:30 Phosphorus 4.1 mg/dl (2.5-4.5) 08/10/18 04:30 Magnesium 1.9 MG/DL (1.6-2.3) 08/10/18 04:30 Iron < 10 ug/dL (49-181) L 08/09/18 10:28 TIBC 334 ug/dL (250-450) 08/09/18 10:28 % Saturation 2.99 % (20-55) L 08/09/18 10:28 Ferritin 53.6 ng/Ml (17.9-464) 08/09/18 10:28 Total Bilirubin 1.4 mg/dl (0.2-1.3) H 08/11/18 04:30 AST 1229 U/L (17-59) H 08/11/18 04:30 ALT 2484 U/L (21-72) H 08/11/18 04:30 Alkaline Phosphatase 119 U/L (38-126) 08/11/18 04:30 Ammonia 17 umo/L (16-60) D 08/10/18 04:30 Total Creatine Kinase 210 U/L (55-170) H 08/07/18 13:52 Troponin I 0.6890 ng/mL (0.00-0.120) H* 08/08/18 18:18 Total Protein 5.9 G/DL (6.3-8.2) L 08/11/18 04:30 Albumin 2.6 g/dL (3.5-5.0) L 08/11/18 04:30 Globulin 3.2 gm/dL (2.2-3.9) 08/11/18 04:30 Albumin/Globulin Ratio 0.8 (1.0-2.1) L 08/11/18 04:30 Triglycerides 112 mg/DL (0-149) 08/08/18 05:32 Cholesterol 100 mg/dL (0-199) 08/08/18 05:32 LDL Cholesterol Direct 65 mg/dL (0-129) 08/08/18 05:32 HDL Cholesterol 30 MG/DL (30-70) 08/08/18 05:32 Alpha Fetoprotein < 0.8 IU/mL (0.0-7.22) 08/09/18 10:28 Procalcitonin 0.12 NG/ML (0.19-0.49) L 08/08/18 07:48 TSH 3rd Generation 1.29 mIU/ML (0.46-4.68) 08/10/18 04:30 Arterial Blood Potassium 5.8 mmol/L (3.6-5.2) H 08/10/18 10:54 Venous Blood Potassium 5.8 mmol/L (3.6-5.2) H 08/11/18 05:12 Acetaminophen < 10.0 ug/ml (10.0-30.0) L 08/09/18 10:28 Hepatitis A IgM Ab Negative (NEGATIVE) 08/08/18 08:22 Hep Bs Antigen Negative (NEGATIVE) 08/08/18 08:22 Hep B Core IgM Ab Negative (NEGATIVE) 08/08/18 08:22 Hepatitis C Antibody Negative (NEGATIVE) 08/08/18 08:22 Blood Type O POSITIVE 08/07/18 10:09 Blood Type Confirm O POSITIVE 08/07/18 10:09 Antibody Screen Negative 08/07/18 10:09 BBK History Checked No verified bt 08/07/18 10:09 - Hospital Course Hospital Course: 73 yo male with pmhx of DMII, HTN, hyperlipidemia and depression admitted for CVA. Patient found to have CVA on CT head. Patient had code blue 1 day after admission and achieved ROSC. Patient was intubated and sent to ICU for closer monitoring. Patient had central line placed for access. Patient initially had GCS 3 and improved to 6. Patient remained stable for 48 hours. Patient was being worked up and treated for CVA, RIVER, acute hepatic injury, pneumonia. On 08/11/2018 patient underwent 3 code blues each less than 1 hour apart due to pulselessness. Patient achieved ROSC each time. Patient's son was contacted lars grossman 3rd code blue, who stated that the team is to continue current code. Son also stated that if the patient were to code yet again, we are NOT to do compressions going forward and allow the patient to pass. Patient became pulseless again and as per patient's son, patient was allowed to pass peacefully. Patient was pronounced at 09:18. Discharge Exam - Head Exam Head Exam: ATRAUMATIC, NORMAL INSPECTION, NORMOCEPHALIC - Eye Exam Eye Exam: absent: PERRL Pupil Exam: Fixed Additional comments: fixed dilated bilaterally - ENT Exam ENT Exam: Mucous Membranes Dry - Respiratory Exam Additional comments: no breath sounds - Cardiovascular Exam Additional comments: pulseless - Extremities Exam Additional comments: pulseless - Neurological Exam Additional comments: absent pupillary light and corneal reflexes unresponsive to any stimuli - Skin Skin Exam: Dry Discharge Plan - Follow Up Plan Condition: STABLE Disposition: WITH WITHOUT AUTOPSY Instructions: Stroke, Pneumonia in Adults, Altered Mental Status <Anita Mcfadden - Last Filed: 08/12/18 17:37> Provider - Provider Date of Admission: 08/07/18 13:49 Attending physician: Geovanni Diaz MD Consults: 08/07/18 13:00 Neurology Consult Stat Comment: Consulting Provider: Victor Manuel Medina Consulting Physician: Victor Manuel Medina Reason for Consult: CVA 08/07/18 18:43 Neurology Consult Routine Comment: Consulting Provider: Jeffrey Headley Consulting Physician: Jeffrey Headley Reason for Consult: CVA 08/08/18 10:17 Gastroenterology Consult Routine Comment: Consulting Provider: Curt Fenton Consulting Physician: Curt Fenton Reason for Consult: elevated LFTs 08/08/18 14:36 Cardiology Consult Routine Comment: Consulting Provider: Rasta Gaspar V Consulting Physician: Rasta Gaspar V Reason for Consult: elevated Troponin post CPR 08/08/18 14:37 Pulmonology Consult Routine Comment: Consulting Provider: Arun Stewart Consulting Physician: Arun Stewart Reason for Consult: patient intubated, markedly elevated right hemidiaphragm 08/09/18 11:51 Nephrology Consult Routine Comment: Consulting Provider: Malcolm Vences Consulting Physician: Malcolm Vences Reason for Consult: deteriorating renal function 08/09/18 11:53 Endocrinology Consult Routine Comment: Consulting Provider: Courtney Pan Consulting Physician: Courtney Pan Reason for Consult: uncontrolled diabetes on intubated patient Hospital Course - Lab Results Lab Results: Micro Results 08/07/18 13:52 Blood-Venous Blood Culture - Final NO GROWTH AFTER 5 DAYS 08/07/18 13:52 Blood-Venous Gram Stain - Final TEST NOT PERFORMED 08/07/18 17:37 Blood-Venous Blood Culture - Preliminary NO GROWTH AFTER 4 DAYS 08/08/18 14:25 Trachasp Gram Stain - Final 08/08/18 14:25 Trachasp Sputum Culture - Final NORMAL ORAL DEBBY 08/08/18 14:25 Naris MRSA Culture (Admit) - Final MRSA NOT DETECTED 08/08/18 17:00 Urine,Phipps Urine Culture - Final No Growth (<1,000 CFU/ML) Most Recent Lab Values WBC 15.6 K/uL (4.8-10.8) H 08/11/18 04:30 RBC 4.99 Mil/uL (4.40-5.90) 08/11/18 04:30 Hgb 12.8 g/dL (12.0-18.0) 08/11/18 04:30 Hct 43.1 % (35.0-51.0) 08/11/18 04:30 MCV 86.5 fl (80.0-94.0) D 08/11/18 04:30 MCH 25.7 pg (27.0-31.0) L 08/11/18 04:30 MCHC 29.7 g/dL (33.0-37.0) L 08/11/18 04:30 RDW 17.8 % (11.5-14.5) H 08/11/18 04:30 Plt Count 175 K/uL (130-400) 08/11/18 04:30 MPV 10.6 fl (7.2-11.7) 08/09/18 04:30 Neut % (Auto) 89.5 % (50.0-75.0) H 08/09/18 04:30 Lymph % (Auto) 2.9 % (20.0-40.0) L 08/09/18 04:30 Yates % (Auto) 7.4 % (0.0-10.0) 08/09/18 04:30 Eos % (Auto) 0.0 % (0.0-4.0) 08/09/18 04:30 Baso % (Auto) 0.2 % (0.0-2.0) 08/09/18 04:30 Neut # (Auto) 13.9 K/uL (1.8-7.0) H 08/09/18 04:30 Lymph # (Auto) 0.5 K/uL (1.0-4.3) L 08/09/18 04:30 Yates # (Auto) 1.2 K/uL (0.0-0.8) H 08/09/18 04:30 Eos # (Auto) 0.0 K/uL (0.0-0.7) 08/09/18 04:30 Baso # (Auto) 0.0 K/uL (0.0-0.2) 08/09/18 04:30 Neutrophils % (Manual) 91 % (42-75) H 08/08/18 05:32 Lymphocytes % (Manual) 2 % (20-50) L 08/08/18 05:32 Monocytes % (Manual) 5 % (0-10) 08/08/18 05:32 Basophils % (Manual) 1 % (0-2) 08/07/18 10:09 Myelocytes % 2 % (0-0) H 08/08/18 05:32 Platelet Estimate Normal (NORMAL) 08/08/18 05:32 Large Platelets Present 08/07/18 10:09 Polychromasia Slight 08/08/18 05:32 Anisocytosis (manual) Slight 08/08/18 05:32 Ovalocytes Slight 08/07/18 10:09 PT 17.0 Seconds (9.8-13.1) H 08/08/18 07:50 INR 1.5 08/08/18 07:50 APTT 31.7 Seconds (25.6-37.1) 08/08/18 07:50 pCO2 47 mm/Hg (35-45) H 08/11/18 03:42 pO2 19 mm/Hg (30-55) L 08/11/18 05:12 HCO3 15.6 mmol/L (21-28) L 08/11/18 03:42 ABG pH 7.17 (7.35-7.45) L* 08/11/18 03:42 ABG Total CO2 18.5 mmol/L (22-28) L 08/11/18 03:42 ABG O2 Saturation 79.2 % (95-98) L 08/11/18 03:42 ABG O2 Content 14.6 ML/dL (15-23) L 08/11/18 03:42 ABG Base Excess -11.3 mmol/L (-2.0-3.0) L 08/11/18 03:42 ABG Hemoglobin 13.5 g/dL (11.7-17.4) 08/11/18 03:42 ABG Carboxyhemoglobin 1.2 % (0.5-1.5) 08/11/18 03:42 POC ABG HHb (Measured) 20.3 % (0.0-5.0) H 08/11/18 03:42 ABG Methemoglobin 1.4 % (0.0-3.0) 08/11/18 03:42 ABG O2 Capacity 18.4 mL/dL (16-24) 08/11/18 03:42 Jose Test Yes 08/11/18 03:42 ABG Potassium 5.8 mmol/L (3.6-5.2) H 08/10/18 10:54 VBG pH 7.02 (7.32-7.43) L* 08/11/18 05:12 VBG pCO2 64 mmHg (40-60) H 08/11/18 05:12 VBG HCO3 11.1 mmol/L 08/11/18 05:12 VBG Total CO2 18.5 mmol/L (22-28) L 08/11/18 05:12 VBG O2 Sat (Calc) 23.6 % (40-65) L 08/11/18 05:12 VBG Base Excess -15.1 mmol/L (0.0-2.0) L 08/11/18 05:12 VBG Potassium 5.8 mmol/L (3.6-5.2) H 08/11/18 05:12 A-a O2 Difference 609.0 mm/Hg 08/11/18 03:42 Hgb O2 Saturation 77.1 % (95.0-98.0) L 08/11/18 03:42 Sodium 144.0 mmol/L (132-148) 08/11/18 05:12 Chloride 109.0 mmol/L (98-107) H 08/11/18 05:12 Glucose 253 mg/dL (75-110) H 08/11/18 05:12 Lactate 8.5 mmol/L (0.7-2.1) H* 08/11/18 05:12 Vent Mode A/c 08/11/18 03:42 Mechanical Rate 22 08/11/18 03:42 FiO2 100.0 % 08/11/18 05:12 Tidal Volume 400 08/11/18 03:42 PEEP 10 08/11/18 03:42 Blood Gas Comments Lac=4.5 08/10/18 10:54 Crit Value Called To Dr mendez pereyra 08/11/18 05:12 Crit Value Called By [id number] 08/11/18 05:12 Crit Value Read Back Y 08/11/18 05:12 Blood Gas Notified Time 516 08/11/18 05:12 Sodium 146 mmol/l (132-148) 08/11/18 04:30 Potassium 6.1 MMOL/L (3.6-5.0) H 08/11/18 04:30 Chloride 114 mmol/L (98-107) H 08/11/18 04:30 Carbon Dioxide 19 mmol/L (22-30) L 08/11/18 04:30 Anion Gap 19 (10-20) 08/11/18 04:30 BUN 78 mg/dl (9-20) H 08/11/18 04:30 Creatinine 5.7 mg/dl (0.8-1.5) H 08/11/18 04:30 Est GFR ( Amer) 12 08/11/18 04:30 Est GFR (Non-Af Amer) 10 08/11/18 04:30 POC Glucose (mg/dL) 219 mg/dL (65-110) H 08/11/18 04:10 Random Glucose 238 mg/dL (75-110) H 08/11/18 04:30 Hemoglobin A1c 9.5 % (4.2-6.5) H 08/10/18 04:30 Lactic Acid 4.3 MMOL/L (0.7-2.1) H* 08/11/18 04:30 Calcium 6.7 mg/dL (8.4-10.2) L 08/11/18 04:30 Phosphorus 4.1 mg/dl (2.5-4.5) 08/10/18 04:30 Magnesium 1.9 MG/DL (1.6-2.3) 08/10/18 04:30 Iron < 10 ug/dL (49-181) L 08/09/18 10:28 TIBC 334 ug/dL (250-450) 08/09/18 10:28 % Saturation 2.99 % (20-55) L 08/09/18 10:28 Ferritin 53.6 ng/Ml (17.9-464) 08/09/18 10:28 Total Bilirubin 1.4 mg/dl (0.2-1.3) H 08/11/18 04:30 AST 1229 U/L (17-59) H 08/11/18 04:30 ALT 2484 U/L (21-72) H 08/11/18 04:30 Alkaline Phosphatase 119 U/L (38-126) 08/11/18 04:30 Ammonia 17 umo/L (16-60) D 08/10/18 04:30 Total Creatine Kinase 210 U/L (55-170) H 08/07/18 13:52 Troponin I 0.6890 ng/mL (0.00-0.120) H* 08/08/18 18:18 Total Protein 5.9 G/DL (6.3-8.2) L 08/11/18 04:30 Albumin 2.6 g/dL (3.5-5.0) L 08/11/18 04:30 Globulin 3.2 gm/dL (2.2-3.9) 08/11/18 04:30 Albumin/Globulin Ratio 0.8 (1.0-2.1) L 08/11/18 04:30 Triglycerides 112 mg/DL (0-149) 08/08/18 05:32 Cholesterol 100 mg/dL (0-199) 08/08/18 05:32 LDL Cholesterol Direct 65 mg/dL (0-129) 08/08/18 05:32 HDL Cholesterol 30 MG/DL (30-70) 08/08/18 05:32 Alpha Fetoprotein < 0.8 IU/mL (0.0-7.22) 08/09/18 10:28 Procalcitonin 0.12 NG/ML (0.19-0.49) L 08/08/18 07:48 TSH 3rd Generation 1.29 mIU/ML (0.46-4.68) 08/10/18 04:30 Arterial Blood Potassium 5.8 mmol/L (3.6-5.2) H 08/10/18 10:54 Venous Blood Potassium 5.8 mmol/L (3.6-5.2) H 08/11/18 05:12 Acetaminophen < 10.0 ug/ml (10.0-30.0) L 08/09/18 10:28 Hepatitis A IgM Ab Negative (NEGATIVE) 08/08/18 08:22 Hep Bs Antigen Negative (NEGATIVE) 08/08/18 08:22 Hep B Core IgM Ab Negative (NEGATIVE) 08/08/18 08:22 Hepatitis C Antibody Negative (NEGATIVE) 08/08/18 08:22 Blood Type O POSITIVE 08/07/18 10:09 Blood Type Confirm O POSITIVE 08/07/18 10:09 Antibody Screen Negative 08/07/18 10:09 BBK History Checked No verified bt 08/07/18 10:09 Attending/Attestation - Attestation I have personally seen and examined this patient.: Yes I have fully participated in the care of the patient.: Yes I have reviewed all pertinent clinical information, including history, physical exam and plan: Yes Notes (Text): Discharge Diagnoses: Septic Shock sec to Bacterial Pneumonia , with multiorgan failure( resp failure, liver failure and renal failure ) Respiratory Failure due to Sepsis, Pneumonia Acute CVA Acute Renal Failure Shock Liver Pt's son did not want any further resuscitative measures and made pt DNR. Pt on 08/11/18 at 9:18 am Cause of : Septic Shock due to Bacterial Pneumonia
--- NOTE | 2018-08-13 14:38 | PQF ---
PROVIDER RESPONSE TEXT: Patient had septic shock secondary to pneumonia but with unknown organism. It was also not related to any device. Patient was admitted with altered mental status and did not have the criteria for sepsis . REVIEWER QUERY TEXT: Rule Out Sepsis Clarification 08/[address] Mcfadden documented Sepsis, Septic Shock and Bacterial Pneumonia. Please clarif y if you agree with these diagnoses and specify if they were POA. -- Patient has sepsis - Please document confirmed, suspected or probable causative organism - Please document confirmed, suspected or probable localized infection - Please clarify if sepsis is related to a device - Please clarify if sepsis was present on admission -- Sepsis was ruled out (include corresponding diagnosis for patient?s clinical picture and treatment ) -- Patient had sepsis which is resolved -- Other, please specify The patient's Clinical Indicators include: XXX Query created by: Sophie Rivera on 08/12/2018 9:55 AM Electronically signed by: Geovanni Diaz MD 08/13/2018 2:35 PM
--- NOTE | 2018-08-13 14:38 | PQF ---
PROVIDER RESPONSE TEXT: It was suspected but then documented that patient had acute stroke on posterior right parietal lobe w hich was shown on the initial CT scan of the head. REVIEWER QUERY TEXT: Documentation Clarification Your help is requested in clarifying the following clinical documentation, if you can please further specify in the medical record and discharge summary the possible etiology of the cardiac arrest if kn own. The patient's Clinical Indicators include: Admitted with AMS. Documentation of suspected acute CVA, hypoxemia likely secondary to aspiration pne umonia, hyperkalemia, transaminitis, liver failure, IDDM, HTN, Depression Query created by: Helena Schofield on 08/10/2018 9:26 AM Electronically signed by: Geovanni Diaz MD 08/13/2018 2:35 PM
== END 2018-08-11 09:18 | DRG 64 ==
LOC: H.ER 09:31 → H.ERHOLD 13:49 → H.TEL 18:16 → H.ICU/CCU 08-08 07:48
PROC: 06HM33Z Insertion of Infusion Device into Right Femoral Vein, Percutaneous Approach (ICD-10-PCS; 2018-08-08)
PROC: 0BH17EZ Insertion of Endotracheal Airway into Trachea, Via Natural or Artificial Opening (ICD-10-PCS; 2018-08-08)
PROC: 5A1945Z Respiratory Ventilation, 24-96 Consecutive Hours (ICD-10-PCS; 2018-08-08)
PROC: 5A12012 Performance of Cardiac Output, Single, Manual (ICD-10-PCS; 2018-08-08)
PROC: 3E033XZ Introduction of Vasopressor into Peripheral Vein, Percutaneous Approach (ICD-10-PCS; principal; 2018-08-11)
DX: I63.511 Cerebral infarction due to unspecified occlusion or stenosis of right middle cerebral artery (principal); J69.0 Pneumonitis due to inhalation of food and vomit; K72.00 Acute and subacute hepatic failure without coma; N17.0 Acute kidney failure with tubular necrosis; J96.91 Respiratory failure, unspecified with hypoxia; A41.9 Sepsis, unspecified organism; J15.9 Unspecified bacterial pneumonia; R65.21 Severe sepsis with septic shock; G93.1 Anoxic brain damage, not elsewhere classified; I46.9 Cardiac arrest, cause unspecified; E87.5 Hyperkalemia; Z79.4 Long term (current) use of insulin; R74.0 Nonspecific elevation of levels of transaminase and lactic acid dehydrogenase [LDH]; Z79.82 Long term (current) use of aspirin; E78.00 Pure hypercholesterolemia, unspecified; E78.5 Hyperlipidemia, unspecified; F32.9 Major depressive disorder, single episode, unspecified; E11.42 Type 2 diabetes mellitus with diabetic polyneuropathy; E11.21 Type 2 diabetes mellitus with diabetic nephropathy; I25.10 Atherosclerotic heart disease of native coronary artery without angina pectoris; Z95.5 Presence of coronary angioplasty implant and graft; I87.2 Venous insufficiency (chronic) (peripheral); E11.65 Type 2 diabetes mellitus with hyperglycemia; I44.0 Atrioventricular block, first degree; Z66 Do not resuscitate; Z51.5 Encounter for palliative care; R56.9 Unspecified convulsions; N18.9 Chronic kidney disease, unspecified; E11.22 Type 2 diabetes mellitus with diabetic chronic kidney disease; I12.9 Hypertensive chronic kidney disease with stage 1 through stage 4 chronic kidney disease, or unspecified chronic kidney disease; R40.2430 Glasgow coma scale score 3-8, unspecified time